=== PATIENT | female | born 1935 | race African-American/Black ===

== ENCOUNTER 2020-02-14 14:28 | Outpatient (CLI) | payer MEDICARE, SELFPAY ==
--- NOTE | ~2020-02-14 | MM_ITS ---
EXAMINATION: MM screening yessenia BI w jean HISTORY: Screening mammogram, family history of breast cancer in her sister. TECHNIQUE: Craniocaudal and mediolateral oblique 3-D tomosynthesis images were obtained and synthetic 2-D images were generated. CAD analysis was submitted and interpreted. COMPARISON: 01/18/2019, 01/16/2018, 12/01/2017, 10/20/2016 BREAST PARENCHYMAL COMPOSITION: There are scattered areas of fibroglandular density. FINDINGS: RIGHT BREAST: A 4 mm mass is present in the middle third of the central breast. LEFT BREAST: There is no evidence of suspicious mass, calcification, or architectural distortion to s uggest malignancy. There has been no significant interval change. IMPRESSION: 1. Right breast mass. 2. Additional mammographic views and possible breast ultrasound are recommended. BI-RADS Category 0: Incomplete: Needs additional imaging evaluation. Reviewed, dictated and finalized at location A. F II DISPATCHER IMPRESSION: 1. Right breast mass. 2. Additional mammographic views and possible breast ultrasound are recommended . BI-RADS Category 0: Incomplete: Needs additional imaging evaluation.
== END 2020-02-14 14:29 | disposition home or self-care (01) ==
LOC: ANHIMG 14:33
PROVIDERS: PCP Emergency Medicine; Visit Provider Emergency Medicine
DX: Z12.31 Encounter for screening mammogram for malignant neoplasm of breast (principal); R91.8 Other nonspecific abnormal finding of lung field
CPT/HCPCS: 77063; 77067

== ENCOUNTER 2020-02-20 17:43 | Emergency (ER) | payer MEDICARE, SELFPAY ==
--- NOTE | ~2020-02-20 | XR_ITS ---
EXAMINATION: XR chest 2V DATE: 02/20/2020 18:35 INDICATION: Shortness of breath and left-sided chest tightness. Tachycardia. TECHNIQUE: frontal and lateral views of the chest were obtained. COMPARISON: Chest radiograph dated 05/16/2014 FINDINGS: The lungs remain clear with no focal airspace opacities, pulmonary edema, pleural effusion or pneumot horax. Cardiomegaly. Visualized bones and soft tissues are unremarkable. There are bridging osteophyt es at multiple levels in the spine, consistent with diffuse idiopathic skeletal hyperostosis (DISH). IMPRESSION: 1. Cardiomegaly. Reviewed, dictated and finalized at location H. OPEDICS PEDIATRIC PHYSICIAN IMPRESSION: 1. Cardiomegaly.
--- NOTE | 2020-02-20 17:46 | ECG_ITS ---
Measurements Intervals [place] Rate: 65 P: -11 KS: 112 QRS: 2 QRSD: 80 T: 69 QT: 374 QTc: 389 Interpretive Statements SINUS RHYTHM WITH SHORT [place] INTERVAL NONSPECIFIC ST & T-WAVE ABNORMALITY- HIGH LATERAL LEADS BASELINE WANDER- I, II BORDERLINE ECG Electronically Signed On 02-20-2020 20:19:30 DEMOLITION WORKER by Abad Samano D.O.
[2020-02-20 17:47] VITALS: BP 209/76; PULSE 85; RESP 16; TEMP 36.5; O2SAT 100
--- NOTE | 2020-02-20 18:15 | ED.CHESTPAIN ---
HPI - Chest Pain General Chief Complaint: Chest Pain Stated Complaint: chest pain Time Seen by Provider: 02/20/20 18:06 Source: patient Mode of arrival: ambulatory Limitations: no limitations History of Present Illness HPI narrative: Patient is an 84-year-old female who presents with mild chest heaviness that began yesterday morning upon waking has persisted into today noting occasionally getting a slight twinge in the chest of pain denies any current pain. Patient with history of coronary artery disease hypertension presents with family in no distress does not take anything for her symptoms notes that she has been compliant with her medications. Related Data Home Medications Medication Instructions Recorded Confirmed albuterol sulfate INHALATION 02/20/20 alprazolam 02/20/20 celecoxib mg 02/20/20 irbesartan-hydrochlorothiazide tablet 02/20/20 meclizine mg 02/20/20 pitavastatin calcium [Livalo] mg 02/20/20 Allergies Allergy/AdvReac Type Severity Reaction Status Date / Time Penicillins Allergy Unknown Rash Verified 02/20/20 17:50 Review of Systems Review of Systems: All systems reviewed & are unremarkable except as noted in HPI and below [facility] Past Medical History Medical History (Updated 02/20/20 @ 19:45 by Nabeel Carpenter PA-C) Hypertension Surgical History Surgical History (Updated 02/20/20 @ 18:18 by Nabeel Carpenter PA-C) H/O cardiac catheterization Family History Family History (Updated 11/28/13 @ 07:13 by DOCTOR UNKNOWN) Father Malignant neoplasm of prostate Social History Social History (Updated 02/20/20 @ 18:18 by Nabeel Carpenter PA-C) Smoking status: Never smoker Alcohol intake: never Exam Narrative: Exam Narrative: GENERAL: Well-appearing, well-nourished, and in no acute distress. HEAD: Normocephalic, atraumatic. EYES: PERRLA and EOMI. ENT: Nares clear, no rhinorrhea or epistaxis. Mucous membranes moist. CHEST: Clear to auscultation. No respiratory distress. No wheezes rales or rhonchi HEART: Regular rate and rhythm. No murmur heard. Normal peripheral pulses. ABDOMEN: Soft, nontender, nondistended EXTREMITIES: Normal range of motion. No edema. SKIN: Warm, dry, no rash. NEURO: No focal deficits. Alert and oriented x3. Cranial nerves II through XII grossly intact PSYCH: Normal mood and affect. Course Course Emergency Course: Patient in the room in no distress patient symptoms likely to be due to elevated blood pressure discussion was made with the cardiology group patient was given medications in the emergency department has appointment tomorrow with her clock and watch hands mounter and will be discharged home it is felt that the patient has had her symptoms for over 24 hours with negative work-up in the ER for elevated troponin or heart failure or other concerning findings patient lives at home with her son and feels comfortable going home with her son and is resting comfortably in no pain at this time Consultations Consultation #1: Discussed with cardiology the case who feels comfortable the patient can go home given the duration of symptoms leaves it is likely attributed to her blood pressure which will be treated in the emergency department with hydralazine and nifedipine and patient will follow tomorrow in clinic for further discussion Date: 02/20/20 Time: 19:45 Vital Signs Vital signs: Vital Signs Temperature 97.7 F 02/20/20 17:47 Pulse Rate 85 02/20/20 17:47 Respiratory Rate 16 02/20/20 17:47 Blood Pressure 209/76 H 02/20/20 17:47 Pulse Oximetry 100 02/20/20 17:47 Temperature 97.7 F 02/20/20 17:47 Pulse Rate 85 02/20/20 17:47 Respiratory Rate 16 02/20/20 17:47 Blood Pressure 209/76 H 02/20/20 17:47 Pulse Oximetry 100 02/20/20 17:47 MDM - Chest Pain MDM Narrative Medical decision making narrative: Patient in the room in no distress aware of case findings treatment plan diagnosis agreeing to follow-up tomorrow in clinic with her cynthia
[2020-02-20 18:29] LABS: Basophils Percent Auto 0.3 % (0.2-1.2); Eosinophils Absolute Auto 0.2 K/mm3 (0-0.3); Eosinophils Percent Auto 2.7 % (0-4.4); Hematocrit 36.8 % (37.0-47.0); Hemoglobin 12.4 g/dL (12.0-15.0); Immature Granulocyte Absolute 0.02 K/mm3 (0.00-0.031); Immature Granulocyte Percent A 0.3 % (0-0.5); Lymphocytes Absolute Auto 2.28 K/mm3 (0.9-3.2); Lymphocytes Percent Auto 32.9 % (18.3-44.2); Mean Corpuscular HGB Conc 33.7 g/dl (32-36); Mean Corpuscular Hemoglobin 31.8 pg (26-34); Mean Corpuscular Volume 94.4 fl (80-100); Monocytes Absolute Auto 0.5 K/mm3 (0.1-0.6); Monocytes Percent Auto 6.9 % (2.6-8.5); Neutrophils Absolute Auto 3.9 K/mm3 (1.3-6.7); Neutrophils Percent Auto 56.9 % (45.5-73.1); Platelet Count Result 177 k/mm3 (150-375); Red Cell Distribution Width 12.1 % (11.5-14.5); White Blood Count 6.9 K/mm3 (4.5-10.0)
[2020-02-20] MEDS: ASPIRIN 81 MG CHEWABLE TABLET 324 MG PO (18:38)
[2020-02-20 18:44] LABS: Anion Gap 8 mmol/L (8-16); Blood Urea Nitrogen 17 mg/dL (7-17); Calcium 9.5 mg/dL (8.4-10.2); Carbon Dioxide 29 mmol/L (22-30); Chloride 102 mmol/L (98-107); Estimated CRCL calculation 35 ml/min; Estimated Glomerular Filt Rate 52; Glucose 101 mg/dL (65-105); Potassium 4.4 mmol/L (3.4-5.0); Sodium 139 mmol/L (137-145)
[2020-02-20 18:46] LABS: Partial Thromboplastin Time 28.3 SECONDS (22.3-36.8); Prothrombin Time 13.4 Seconds (11.1-14.7)
[2020-02-20 18:56] LABS: Troponin I < 0.012 ng/mL (0.000-0.034)
[2020-02-20 19:19] LABS: NT Pro B Type Natriuretic Pept 311 PG/ML (5-100)
[2020-02-20 20:11] VITALS: BP 165/80; PULSE 57; RESP 18; O2SAT 100
[2020-02-20] MEDS: hydrALAZINE HCL 20 MG/ML VIAL 10 MG IV PUSH (20:18)
[2020-02-20 20:31] VITALS: BP 159/66; PULSE 64; RESP 21; O2SAT 100
== END 2020-02-20 20:47 | disposition home or self-care (01) ==
PROVIDERS: Emergency Medicine Emergency Medical Services; Emergency Provider Emergency Medicine; PCP Emergency Medicine
DX: I10 Essential (primary) hypertension (principal); I25.10 Atherosclerotic heart disease of native coronary artery without angina pectoris
CPT/HCPCS: 36415; 71046; 80048; 83880; 84484; 85025; 85610; 85730; 93005; 96374; 99284; A9270; J0360

== ENCOUNTER 2020-03-16 13:17 | Outpatient (CLI) | payer MEDICARE, SELFPAY ==
--- NOTE | ~2020-03-16 | MMUS_ITS ---
EXAMINATION: MM diagnostic mammo unilat RT, US breast RT limited HISTORY: Right breast mass on screening mammogram TECHNIQUE: Additional 3-D tomosynthesis images of the right breast were performed and synthetic 2-D i mages were generated. CAD analysis was submitted and interpreted. High resolution limited right breas t ultrasound was performed. COMPARISON: 02/14/2020, 01/18/2019, 12/01/2017, 10/20/2016 FINDINGS: MAMMOGRAPHIC FINDINGS: There is a persistent round, circumscribed, 4 mm equal density mass in the middle third of the centra l breast. There is no associated calcification or architectural distortion. ULTRASOUND: There is a 4 mm cyst at the 1:00 location 3 cm from the nipple corresponding to the mammographic find ing in question. Also seen is a 3 mm cyst at posterior depth at the same location. IMPRESSION: 1. No mammographic or sonographic evidence of malignancy. 2. Recommend annual screening mammography while the patient remains in good health. BI-RADS Category 2: Benign finding(s). Reviewed, dictated and finalized at location A. BILITATION ASSISTANT IMPRESSION: 1. No mammographic or sonographic evidence of malignancy. 2. Recommend annual screening mammography while the patient remains in good hea lth. BI-RADS Category 2: Benign finding(s).
== END 2020-03-16 13:18 | disposition home or self-care (01) ==
PROVIDERS: PCP Emergency Medicine; Visit Provider Emergency Medicine
DX: R92.8 Other abnormal and inconclusive findings on diagnostic imaging of breast (principal); N60.01 Solitary cyst of right breast
CPT/HCPCS: 76642; 77065

== ENCOUNTER 2020-07-28 15:04 | Emergency (ER) | payer MEDICARE, SELFPAY ==
--- NOTE | ~2020-07-28 | XR_ITS ---
EXAMINATION: XR chest 2V EXAM DATE: 07/28/2020 15:48 INDICATION: Chest pain radiating to left arm for 4 weeks. Shortness of breath. TECHNIQUE: Frontal and lateral projections of the chest obtained and reviewed. Comparison is made to prior examination from 02/20/2020. FINDINGS: Borderline cardiac enlargement. No confluent consolidation, pneumothorax or pleural effusi on suspected. Patient has diffuse idiopathic skeletal hyperostosis (DISH). IMPRESSION: No acute cardiopulmonary findings. Reviewed, dictated and finalized at location A.
[2020-07-28 15:06] VITALS: BP 155/87; PULSE 70; RESP 17; TEMP 36.4; O2SAT 100
--- NOTE | 2020-07-28 15:06 | ECG_ITS ---
Measurements Intervals [place] Rate: 66 P: 84 CO: 158 QRS: -4 QRSD: 88 T: 33 QT: 375 QTc: 394 Interpretive Statements SINUS RHYTHM BASELINE ARTIFACT- I, II, III, AVR, AVL,A VF NORMAL ECG Electronically Signed On 07-28-2020 15:38:12 CDT by Abad Samano D.O.
[2020-07-28 15:30] LABS: Basophils Percent Auto 0.3 % (0.2-1.2); Eosinophils Absolute Auto 0.2 K/mm3 (0-0.3); Eosinophils Percent Auto 2.3 % (0-4.4); Hematocrit 35.8 % (37.0-47.0); Hemoglobin 11.9 g/dL (12.0-15.0); Immature Granulocyte Absolute 0.02 K/mm3 (0.00-0.031); Immature Granulocyte Percent A 0.3 % (0-0.5); Mean Corpuscular HGB Conc 33.2 g/dl (32-36); Mean Corpuscular Hemoglobin 30.8 pg (26-34); Mean Corpuscular Volume 92.7 fl (80-100); Mean Platelet Volume 10.4 fl (7.4-10.4); Monocytes Absolute Auto 0.5 K/mm3 (0.1-0.6); Monocytes Percent Auto 6.7 % (2.6-8.5); Neutrophils Absolute Auto 4.4 K/mm3 (1.3-6.7); Neutrophils Percent Auto 59.4 % (45.5-73.1); Platelet Count Result 223 k/mm3 (150-375); Red Blood Count 3.86 M/mm3 (4.2-5.4); Red Cell Distribution Width 11.9 % (11.5-14.5); White Blood Count 7.4 K/mm3 (4.5-10.0)
[2020-07-28 15:39] LABS: Anion Gap 7 mmol/L (8-16); Blood Urea Nitrogen 18 mg/dL (7-17); Calcium 9.7 mg/dL (8.4-10.2); Carbon Dioxide 30 mmol/L (22-30); Chloride 104 mmol/L (98-107); Estimated CRCL calculation 34 ml/min; Estimated Glomerular Filt Rate 52; Glucose 119 mg/dL (65-105); Potassium 4.4 mmol/L (3.4-5.0); Prothrombin Time 13.3 Seconds (11.1-14.7); Sodium 141 mmol/L (137-145)
[2020-07-28 15:40] LABS: Partial Thromboplastin Time 26.8 SECONDS (22.3-36.8)
[2020-07-28 15:51] LABS: Troponin I < 0.012 ng/mL (0.000-0.034)
--- NOTE | 2020-07-28 16:34 | ED.CHESTPAIN ---
HPI - Chest Pain General Chief Complaint: Chest Pain Stated Complaint: chest pain Time Seen by Provider: 07/28/20 16:31 Source: patient and family Mode of arrival: ambulatory Limitations: no limitations History of Present Illness HPI narrative: Patient is 85 years old -[place] female referred to the emergency room from family physician because of intermittent left chest pain for the last 4 weeks. Patient reports pain get worse with certain movement, taking deep breath, using her left upper extremity. Get better and Tylenol. Patient denies any fever, chills, nausea, vomiting, back pain or abdominal pain. History of hypertension and asthma. Patient on baby aspirin once a day, no family history of coronary artery disease.. Patient reports that the chest pain is intermittent, when it comes last for few seconds then resolved. Patient denies radiation of pain. MD complaint: chest pain Related Data Home Medications Medication Instructions Recorded Confirmed albuterol sulfate INHALATION 02/20/20 alprazolam 02/20/20 celecoxib mg 02/20/20 irbesartan-hydrochlorothiazide tablet 02/20/20 meclizine mg 02/20/20 pitavastatin calcium [Livalo] mg 02/20/20 Allergies Allergy/AdvReac Type Severity Reaction Status Date / Time Penicillins Allergy Unknown Rash Verified 07/28/20 15:59 Review of Systems Review of Systems: Narrative: CONSTITUTIONAL: Denies fever, chills, or sweats. EYES: Denies visual changes, redness, or discharge. ENT: Denies rhinorrhea, congestion, sore throat, or otalgia. CARDIOVASCULAR: Denies chest pain, palpitations, or edema. RESPIRATORY: Denies cough or dyspnea. GASTROINTESTINAL: Denies abdominal pain, nausea, vomiting, or diarrhea. GENITOURINARY: Denies dysuria or hematuria. SKIN: Denies rash or itching. MUSCULOSKELETAL: Denies back pain, joint pain, or myalgia. NEUROLOGIC: Denies headache, numbness, or weakness. PSYCHIATRIC: Denies anxiety or depression. [facility] Past Medical History Medical History Hypertension Surgical History Surgical History H/O cardiac catheterization Family History Family History Father Malignant neoplasm of prostate Social History Social History Smoking status: Never smoker Alcohol intake: never Gender identity (if verbalized by the patient): Female Exam Narrative: Exam Narrative: General appearance: Well-developed, well-nourished Skin: Normal color Head: Normocephalic, nontraumatic Eyes: Clear conjunctiva ENT: Oropharynx normal, ears normal, nose normal Neck: Supple, nontender Chest and respiratory: Airway patent, no respiratory distress, no accessory muscle use. Diffuse tenderness left chest with light palpation also diffuse tenderness left upper back. Limited range of motion of left shoulder because of pain. Heart: Regular rate/rhythm Abdomen: Soft, nontender, no organomegaly, quiet bowel sounds Vascular: Normal peripheral pulses, normal capillary refill. Musculoskeletal: Normal range of motion, nontender back Neurologic: Alert and oriented ?3, FIRE EXTINGUISHER TESTER is normal as tested, no gross motor deficit Course Course Emergency Course: Stable Consultations Consultation #1: Dr. Peña, Patient will receive a phone call from us tomorrow for follow-up Date: 07/28/20 Time: 17:25 Vital Signs Vital signs: Vital Signs Temperature 36.4 C 07/28/20 15:06 Pulse Rate 70 07/28/20 15:06 Respiratory Rate 17 07/28/20 15:06 Blood Pressure 155/87 H 07/28/20 15:06 Pulse Oximetr
[2020-07-28 17:22] VITALS: BP 147/74; PULSE 69; RESP 16; O2SAT 100
== END 2020-07-28 17:22 | disposition home or self-care (01) ==
PROVIDERS: Emergency Medicine; Emergency Provider Emergency Medicine; PCP Emergency Medicine
DX: R07.89 Other chest pain (principal); I10 Essential (primary) hypertension
CPT/HCPCS: 36415; 71046; 80048; 84484; 85025; 85610; 85730; 93005; 99284

== ENCOUNTER 2021-04-16 14:40 | Outpatient (CLI) | payer MEDICARE, SELFPAY ==
--- NOTE | ~2021-04-16 | MM_ITS ---
EXAMINATION: MM screening yessenia BI w jean HISTORY: Screening TECHNIQUE: Craniocaudal and mediolateral oblique 3-D tomosynthesis images were obtained and synthetic 2-D images were generated. CAD analysis was submitted and interpreted. COMPARISON: Comparison to multiple prior studies sequentially, with oldest reviewed study dated 12/01. BREAST PARENCHYMAL COMPOSITION: There are scattered areas of fibroglandular density. FINDINGS: There is no evidence of suspicious mass, calcification, or architectural distortion to sugg est malignancy in either breast. There has been no suspicious interval change. IMPRESSION: 1. No mammographic evidence of malignancy. 2. Recommend routine screening mammography in one year. BI-RADS Category 1: Negative Reviewed, dictated and finalized at location A. E HALL HOSTESS
== END 2021-04-16 14:41 | disposition home or self-care (01) ==
LOC: ANHIMG 14:42
PROVIDERS: PCP Emergency Medicine; Visit Provider Emergency Medicine
DX: Z12.31 Encounter for screening mammogram for malignant neoplasm of breast (principal)
CPT/HCPCS: 77063; 77067

== ENCOUNTER 2021-09-13 20:33 | Observation (INO) | payer MEDICARE, SELFPAY ==
--- NOTE | ~2021-09-13 | XR_ITS ---
EXAMINATION: XR chest 2V Exam Date/Time: 09/13/2021 21:00 CDT HISTORY: GENERALIZED CP X 1 WK,HX HYPERTENSION Comparison: None available. RESULT: Lines, tubes, and devices: None. Lungs and pleura: Senescent changes, otherwise clear. Cardiomediastinal silhouette: Stable cardiomediastinal silhouette. Other: No acute osseous or upper abdominal finding. IMPRESSION: No acute cardiopulmonary process. Reviewed, dictated and finalized at location K.
--- NOTE | 2021-09-13 20:35 | ECG_ITS ---
Measurements Intervals [place] Rate: 79 P: 171 CT: 162 QRS: 183 QRSD: 85 T: 166 QT: 355 QTc: 409 Interpretive Statements SINUS RHYTHM RIGHT VENTRICULAR HYPERTROPHY COMPARED TO ECG 07/28/2020 15:18:31 NO SIGNIFICANT CHANGES Electronically Signed On 09-14-2021 11:18:17 CDT by Marcial Gamino M.D.
[2021-09-13 20:42] VITALS: BP 194/65; PULSE 79; RESP 17; TEMP 36.6; O2SAT 100
--- NOTE | 2021-09-13 21:00 | PC.NURSE ---
Pt's daughter Berna [phone]. Please call with questions/concerns.
[2021-09-13 21:02] LABS: Basophils Percent Auto 0.5 % (0.2-1.2); Eosinophils Absolute Auto 0.2 K/mm3 (0-0.3); Eosinophils Percent Auto 3.4 % (0-4.4); Hematocrit 34.4 % (37.0-47.0); Hemoglobin 11.5 g/dL (12.0-15.0); Immature Granulocyte Absolute 0.02 K/mm3 (0.00-0.031); Immature Granulocyte Percent A 0.4 % (0-0.5); Lymphocytes Absolute Auto 1.12 K/mm3 (0.9-3.2); Mean Corpuscular HGB Conc 33.4 g/dl (32-36); Mean Corpuscular Hemoglobin 31.4 pg (26-34); Mean Platelet Volume 10.7 fl (7.4-10.4); Monocytes Absolute Auto 0.4 K/mm3 (0.1-0.6); Monocytes Percent Auto 6.4 % (2.6-8.5); Neutrophils Absolute Auto 3.9 K/mm3 (1.3-6.7); Neutrophils Percent Auto 69.3 % (45.5-73.1); Platelet Count Result 166 k/mm3 (150-375); Red Blood Count 3.66 M/mm3 (4.2-5.4); Red Cell Distribution Width 12.5 % (11.5-14.5); White Blood Count 5.6 K/mm3 (4.5-10.0)
[2021-09-13 21:12] LABS: Alanine Aminotransferase 15 U/L (6-35); Albumin Level 4.2 g/dL (3.5-5.1); Alkaline Phosphatase 65 U/L (38-126); Anion Gap 8 mmol/L (8-16); Aspartate Amino Transferase 21 U/L (14-36); Bilirubin,Total 1.1 mg/dL (0.2-1.3); Blood Urea Nitrogen 13 mg/dL (7-17); Calcium 9.4 mg/dL (8.4-10.2); Carbon Dioxide 25 mmol/L (22-30); Chloride 102 mmol/L (98-107); Estimated CRCL calculation 40 ml/min; Estimated Glomerular Filt Rate > 60; Glucose 117 mg/dL (65-110); INR 1.1; Lipase 84 U/L (23-300); Potassium 3.8 mmol/L (3.4-5.0); Prothrombin Time 13.6 Seconds (11.1-14.7); Sodium 135 mmol/L (137-145)
[2021-09-13 21:13] LABS: Partial Thromboplastin Time 31.2 SECONDS (22.3-36.8)
[2021-09-13 21:24] LABS: Troponin I < 0.012 ng/mL (0.000-0.034)
[2021-09-13 21:52] VITALS: BP 172/61; PULSE 75; RESP 25; O2SAT 100
--- NOTE | 2021-09-13 22:00 | ED.CHESTPAIN ---
HPI - Chest Pain General Chief Complaint: Chest Pain Stated Complaint: chest pain since 5 pm Time Seen by Provider: 09/13/21 21:48 Source: patient Mode of arrival: ambulatory Limitations: no limitations History of Present Illness HPI narrative: Patient is an 86-year-old female who presents to the ED with report of L sided CP, described as a heaviness and tightness. Patient reports a history of coronary artery disease. She was diagnosed with COVID-19 in mid August of this year and was reportedly admitted to [facility] 2 weeks ago for a mild heart attack. She had a cardiac catheterization at that time and told she had a slight blockage, but she did not require stenting and was told the blockage will be treated with medical management. She was started on several new medications: Plavix, Lasix, hydrochlorothiazide, isosorbide mononitrate, losartan, and metoprolol at that time. Patient reports she has felt unwell since her hospitalization. She has had intermittent chest pain with exertion since then. Today around 5 PM, she reports the pain became worse while she was sitting at rest. She took 5 nitroglycerin q5 minutes with relief of pain before she decided to come to the ED. She describes the pain as a tightness and heaviness in her left-sided chest. She states that radiates to her left shoulder and down her left arm. She also reports having dyspnea on exertion, diaphoresis, BLE edema. No nausea or vomiting. No abdominal pain. No fever, chills. No cough, cold symptoms. Patient's magneto electrician is Dr. Veras. She saw the nurse practitioner at his office on Monday and was advised to continue taking her medications as prescribed but return to the ED if things became worse. Related Data Home Medications Medication Instructions Recorded Confirmed albuterol sulfate 90 mcg/actuation inhalation 02/20/20 aerosol inhaler alprazolam 0.5 mg tablet 02/20/20 celecoxib 200 mg capsule mg 02/20/20 irbesartan 300 tablet 02/20/20 mg-hydrochlorothiazide 12.5 mg tablet meclizine 25 mg tablet mg 02/20/20 pitavastatin calcium 4 mg tablet mg 02/20/20 (Livalo) Allergies Allergy/AdvReac Type Severity Reaction Status Date / Time Penicillins Allergy Unknown Rash Verified 09/13/21 21:53 Review of Systems Review of Systems: CONSTITUTIONAL: Reports diaphoresis. Denies fever, chills. ENT: Denies rhinorrhea, congestion, sore throat. CARDIOVASCULAR: Reports CP, radiates to L shoulder/arm, BLE edema. Denies palpitations. RESPIRATORY: Reports HEDRICK. Denies cough. GASTROINTESTINAL: Denies abdominal pain, nausea, vomiting. GENITOURINARY: Denies dysuria or hematuria. MUSCULOSKELETAL: Denies back pain, joint pain, or myalgia. NEUROLOGIC: Denies headache, numbness, or weakness. All systems reviewed & are unremarkable except as noted in HPI and below PMFSH Past Medical History Medical History (Updated 09/14/21 @ 01:57 by Candace Barone PA-C) Asthma Coronary artery disease Diabetes mellitus Hypertension Surgical History Surgical History H/O cardiac catheterization Family History Family History Father Malignant neoplasm of prostate Social History Social History Smoking status: Never smoker Alcohol intake: never Gender identity (if verbalized by the patient): Female Exam Narrative: GENERAL: Well appearing, well-nourished, non-toxic, in no acute distress. HEAD: Normocephalic, atraumatic. NECK: Supple. No adenopathy, no masses. RESPIRATORY: Airway patent, respirations nonlabored. Clear to auscultation bilaterally, no rales, rhonchi, wheezing. CARDIOVASCULAR: Regular rate and rhythm without murmurs, rubs, or gallops. Peripheral pulses 2+ and equal bilaterally. ABDOMINAL: Soft, nontender, nondistended, no hepatosplenomegaly. Normoactive BS. MUSCULOSKELETAL: Mo
[2021-09-13] MEDS: ASPIRIN 81 MG CHEWABLE TABLET 324 MG PO (22:18)
--- NOTE | 2021-09-13 22:19 | PC.NURSE ---
pt states they took one 81mg Aspirin prior to arrival.
[2021-09-13 22:51] VITALS: BP 141/60; PULSE 67; RESP 18; O2SAT 98
[2021-09-13 22:51] LABS: NT Pro B Type Natriuretic Pept 332 pg/mL (5-100)
[2021-09-14] VITALS (14 sets, daily range): BP systolic 99–174; BP diastolic 45–70; PULSE 56–160; RESP 16–24; TEMP 36.1–36.8; O2SAT 98–100; BMI 30.2; BMI 32.7
[2021-09-14 00:19] LABS: Troponin I < 0.012 ng/mL (0.000-0.034)
--- NOTE | 2021-09-14 02:18 | ECG_ITS ---
Measurements Intervals [place] Rate: 73 P: -26 WI: 130 QRS: 7 QRSD: 87 T: 25 QT: 354 QTc: 391 Interpretive Statements SINUS RHYTHM NONSPECIFIC ST & T-WAVE ABNORMALITY ABNORMAL ECG COMPARED TO ECG 09/13/2021 20:38:41 T-WAVE ABNORMALITY NOW PRESENT Electronically Signed On 09-15-2021 9:56:12 CDT by Froilan Veras M.D.
[2021-09-14] MEDS: NITROGLYCERIN SL 0.4 MG TABLET SUBLINGUAL (02:23)
--- NOTE | 2021-09-14 02:24 | PC.NURSE ---
Pt given one 0.4 mg tablet of Nitroglycerin.
--- NOTE | 2021-09-14 02:48 | PC.NURSE ---
took patient via nicolas steady to restroom.
[2021-09-14] MEDS: NITROGLYCERIN OINTMENT 1 INCH DOSE TRANSDERM (02:49)
[2021-09-14 03:23] LABS: Troponin I < 0.012 ng/mL (0.000-0.034)
--- NOTE | 2021-09-14 03:54 | ADMGEN ---
This patient, Queen Jack Vicekrs, was admitted to IMU Room 200-01 at 0354. Patient/family oriented to hospital policies and general routines including ID bracelet, bed and alarms, visiting hours, pain management, procedures, bathroom and other care routines, personal items, smoking policy, room service/diet, and visiting hours. Information on how to activate the Rapid Response Team has been discussed. Patient/Family are encouraged to report perceived risks to care and to ask questions if they do not understand what they are told or what they should do.
[2021-09-14 04:11] LABS: Glucose Point of Care 111 mg/dl (65-105)
[2021-09-14 07:34] LABS: Glucose Point of Care 100 mg/dl (65-105)
--- NOTE | 2021-09-14 07:47 | PM.IMHP ---
H&P: HPI History of Present Illness Date/Time: 09/14/21 07:47 Chief Complaint: Chest pain Narrative: Queen Rancho is an 86 yo female with medical history of coronary artery disease, hypertension, asthma, type 2 diabetes and recent hospitalization for COVID19 infection and mild heart attack in August of this year. She presented to the ED for evaluation of left sided chest pain radiating to her left arm. Initially the pain started intermittently at rest, but yesterday prior to the presentation the pain was constant and worsening, is moderate to severe and heavy and sensation. She reports associated shortness of breath, diaphoresis, nausea, palpitations and dizziness. She states that she took 5 nitro pills at home with minimal improvement and received additional nitroglycerin tablet and 1 in nitro paste in the ED with improvement in symptoms. She states she was hospitalized at [facility] a few weeks ago where she had cardiac catheterization showing atherosclerotic disease without intervention required. She was treated medically and states she was started on numerous new medications including Plavix, furosemide, and isosorbide mononitrate. In the emergency room she was hypertensive with blood pressure 194/65. Lab work was unremarkable and showed normal troponin I. EKG showed normal sinus rhythm with T-wave inversion to I and aVL. She received nitroglycerin as stated above, as well as asa 325 mg PO x1. Cardiology was consulted in the ED and agreed to consult. Review of Systems Review of Systems: All systems reviewed & are unremarkable except as noted in HPI and below Cardiovascular: Comments: Chronic BLE swelling. Respiratory: Comments: Recont COVID19 infection with hospitalization. No home O2. Musculoskeletal: Comments: Chronic left shoulder arthritis pain. Neurologic: Comments: Positive neuropathy BLE. [facility] Past Medical History Medical History (Updated 09/14/21 @ 14:37 by Zoe Allen APRN) Anxiety Asthma Coronary artery disease Diabetes mellitus GERD (gastroesophageal reflux disease) Hiatal hernia Hypertension Obesity (BMI 30.0-34.9) Surgical History Surgical History (Updated 09/14/21 @ 14:37 by Zoe Allen APRN) H/O cardiac catheterization S/P lumpectomy, left breast S/P total hysterectomy and BSO (bilateral salpingo-oophorectomy) Family History Family History Father Malignant neoplasm of prostate Social History Social History (Updated 09/14/21 @ 14:38 by Zoe Allen APRN) Smoking status: Never smoker Second hand tobacco smoke exposure: No Alcohol intake: never Substance use: never Living arrangements: with family Gender identity (if verbalized by the patient): Female Spiritual care concerns: No Meds Home Medications and Allergies Home Medications Medication Instructions Recorded Confirmed Type albuterol sulfate 90 mcg/actuation 2 puff inhalation Q6H PRN 02/20/20 09/14/21 History aerosol inhaler Shortness Of Breath Or Wheezing alprazolam 0.5 mg tablet 0.5 mg PO Q12H PRN Anxiety 02/20/20 09/14/21 History meclizine 25 mg tablet 25 mg PO Q8H PRN Dizziness Or 02/20/20 09/14/21 History Vertigo pitavastatin calcium 4 mg tablet 4 mg PO DAILY 02/20/20 09/14/21 History (Livalo) acetaminophen 500 mg tablet 500 mg PO Q6H PRN Pain (Scale 09/14/21 09/14/21 History Score 1-3) aspirin 81 mg tablet,delayed 81 mg PO DAILY 09/14/21 09/14/21 History release cholecalciferol (vitamin D3) 125 125 mcg PO DAILY 09/14/21 09/14/21 History mcg (5,000 unit) capsule clopidogrel 75 mg tablet 75 mg PO DAILY 09/14/21 09/14/21 History famotidine 20 mg tablet 20 mg PO DAILY 09/14/21 09/14/21 History hydrochlorothiazide 12.5 mg tablet 12.5 mg PO DAILY 09/14/21 09/14/21 History isosorbide mononitrate 30 mg 30 mg PO DAILY 09/14/21 09/14/21 History tablet,extended release 24 hr levocetirizine 5 mg table
--- NOTE | 2021-09-14 09:39 | PM.CNCAR ---
Assessment and Plan Assessment and plan (1) Coronary artery disease: Code(s): I25.10 - Atherosclerotic heart disease of [place] coronary artery without angina pectoris Status: Acute Assessment and Plan: She has a recent coronary angiogram showing no significant epicardial disease. She does have branch vessel disease including a small diagonal artery. She also has a myocardial bridge. Continue pitavastatin, antiplatelets, beta-aurelio. Will discontinue the nitrates since she has myocardial bridging this can worsen systolic compression. (2) Chest pain: Code(s): R07.9 - Chest pain, unspecified Status: Acute Assessment and Plan: Possibly anginal although her troponins are negative. No plans on doing a repeat coronary angiogram as she just had an angiogram a couple of weeks ago. Medication adjustments will be performed. Will actually discontinue her isosorbide as nitrates can worsen myocardial bridging. Will increase her metoprolol to 25 mg p.o. q.8 hours. Continue dual anti-platelet therapy, losartan. (3) Essential hypertension: Code(s): I10 - Essential (primary) hypertension Status: Acute Assessment and Plan: Above goal (4) History of COVID-19: Code(s): Z86.16 - Personal history of COVID-19 Status: Acute (5) Hyperlipidemia associated with type 2 diabetes mellitus: Code(s): E11.69 - Type 2 diabetes mellitus with other specified complication; E78.5 - Hyperlipidemia, unspecified Status: Acute Assessment and Plan: On statin History of Present Illness History of Present Illness Consult date/time: 09/14/21 09:39 Reason For Visit: unstable angina Narrative: Reason for consultation: Unstable angina, CAD Date of service 09/14/2021 Requesting provider: Candace Barone History: Patient is an 86-year-old female who developed COVID on August 17 of this year. She was treated at [facility]. She did undergo a cardiac catheterization which showed mild nonobstructive disease of the epicardial vessels. 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 She does have a high-grade ostial and proximal small 2nd diagonal stenosis with 75-80% disease. The artery less than 2 mm in size with 60-70% stenosis in a branch off the 2nd diagonal branch. Elevated LVEDP at 18. She presented to the hospital yesterday with multitude of symptoms including chest pain. Chest pain started about 5:00 p.m. and she took several nitroglycerin tablets with gradual relief in her symptoms. She also felt dizzy and lightheaded along with shortness of breath and sweatiness. She does have chronic lower extremity swelling which is not new or different. She denies any syncope, paroxysmal nocturnal dyspnea, orthopnea. She is having some occasional palpitations. Review of Systems Review of Systems: All systems reviewed & are unremarkable except as noted in HPI and below Constitutional: Constitutional: Denies body ache(s) Eyes: Eyes: Denies blurry vision ENT: Reports Normal hearing present Cardiovascular: Cardiovascular: Reports chest pain Respiratory: Respiratory: Denies chest congestion and Reports dyspnea Gastrointestinal: Gastrointestinal: Denies abdominal pain Genitourinary: Genitourinary: Denies hematuria Musculoskeletal: Musculoskeletal: Denies back pain Integumentary/Breasts: Skin/Breast: Denies breast pain Neurologic: Denies Abnormal speech present Psychiatric: Psychiatric: Denies confusion Endocrine: Endocrine: Reports excessive sweating Hematologic/Lymphatic: Hematologic/Lymphatic: Denies easy bleeding Allergic/Immunologic: Allergic/Immunologic: Denies GI upset with certain foods PMFSH Past Medical History Medical History Asthma Coronary artery disease Diabetes mellitus Hypertension Obesity (BMI 30.0-34.9) Surgical History Surgical History (Reviewed 09/14/21 @ 0
[2021-09-14] MEDS: ALPRAZolam (*CRX) 0.5 MG TABLET PO ×2 (10:19→20:59)
[2021-09-14 11:18] LABS: Hemoglobin A1C 5.9 % (<5.7)
[2021-09-14 12:03] LABS: Glucose Point of Care 143 mg/dl (65-105)
[2021-09-14 12:38] LABS: Folic Acid 9.2 ng/mL (2.76->20); Vitamin B12 > 1000.0 pg/mL (239-931)
[2021-09-14] MEDS: CHOLECALCIFEROL 1,000 UNITS TABLET 5000 UNITS PO (12:45)
[2021-09-14] MEDS: LOSARTAN POTASSIUM 100 MG TABLET PO (12:45)
[2021-09-14] MEDS: hydroCHLOROthiazide 12.5 MG CAPSULE PO (12:45)
[2021-09-14] MEDS: CLOPIDOGREL BISULFATE 75 MG TABLET PO (12:45)
[2021-09-14] MEDS: DICLOFENAC SODIUM 1% 100 GM GEL (*BKC) 1 APPLIC TOPICAL ×3 (12:52→20:41)
[2021-09-14] MEDS: METOPROLOL TARTRATE 25 MG TABLET PO ×2 (13:20→21:00)
[2021-09-14] MEDS: FAMOTIDINE 20 MG TABLET PO (20:41)
[2021-09-15] VITALS (7 sets, daily range): BP systolic 128–139; BP diastolic 47–66; PULSE 55–85; RESP 16–22; TEMP 36.7–37.2; O2SAT 98–100
[2021-09-15] MEDS: METOPROLOL TARTRATE 25 MG TABLET PO ×2 (06:46→13:50)
[2021-09-15] MEDS: hydroCHLOROthiazide 12.5 MG CAPSULE PO (08:51)
[2021-09-15] MEDS: CHOLECALCIFEROL 1,000 UNITS TABLET 5000 UNITS PO (08:51)
[2021-09-15] MEDS: CLOPIDOGREL BISULFATE 75 MG TABLET PO (08:51)
[2021-09-15] MEDS: DICLOFENAC SODIUM 1% 100 GM GEL (*BKC) 1 APPLIC TOPICAL ×2 (08:51→13:51)
[2021-09-15] MEDS: ASPIRIN 81 MG ENTERIC TABLET PO (08:51)
[2021-09-15] MEDS: LOSARTAN POTASSIUM 100 MG TABLET PO (08:51)
[2021-09-15] MEDS: FAMOTIDINE 20 MG TABLET PO (08:51)
--- NOTE | 2021-09-15 09:52 | PM.PNCARD ---
Progress Note: A&P Assessment and Plan (1) Coronary artery disease: Code(s): I25.10 - Atherosclerotic heart disease of [place] coronary artery without angina pectoris Status: Acute Assessment and Plan: She has a recent coronary angiogram showing no significant epicardial disease. She does have branch vessel disease including a small diagonal artery. She also has a myocardial bridge. Continue pitavastatin, antiplatelets, beta-aurelio. (2) Chest pain: Code(s): R07.9 - Chest pain, unspecified Status: Acute Assessment and Plan: Possibly anginal although her troponins are negative. No plans on doing a repeat coronary angiogram as she just had an angiogram a couple of weeks ago. Medication adjustments will be performed. Will actually discontinue her isosorbide as nitrates can worsen myocardial bridging. Continue metoprolol to 25 mg p.o. q.8 hours. Continue dual anti-platelet therapy, losartan. Chest pain is reproducible today. OTC acetaminophen. Probably okay for discharge later today (3) Essential hypertension: Code(s): I10 - Essential (primary) hypertension Status: Acute Assessment and Plan: Above goal (4) History of COVID-19: Code(s): Z86.16 - Personal history of COVID-19 Status: Acute (5) Hyperlipidemia associated with type 2 diabetes mellitus: Code(s): E11.69 - Type 2 diabetes mellitus with other specified complication; E78.5 - Hyperlipidemia, unspecified Status: Acute Assessment and Plan: On statin Subjective Date/time seen: 09/15/21 09:52 will 86-year-old admitted for chest pain Date of service 09/15/2021: She is slight amount of left-sided chest pain this morning. No shortness of breath. Feels better Review of Systems Review of Systems: All systems reviewed & are unremarkable except as noted in HPI and below Constitutional: Constitutional: Denies body ache(s) and Reports excessive sweating Eyes: Eyes: Denies blurry vision ENT: Reports Normal hearing present Cardiovascular: Cardiovascular: Reports chest pain and Reports dyspnea Respiratory: Respiratory: Denies chest congestion and Reports dyspnea Gastrointestinal: Gastrointestinal: Denies abdominal pain Genitourinary: Genitourinary: Denies hematuria Musculoskeletal: Musculoskeletal: Denies back pain Integumentary/Breasts: Skin/Breast: Denies breast pain Neurologic: Reports Normal hearing present, Denies Abnormal speech present and Denies confusion Psychiatric: Psychiatric: Denies confusion Endocrine: Endocrine: Reports excessive sweating Hematologic/Lymphatic: Hematologic/Lymphatic: Denies easy bleeding Allergic/Immunologic: Allergic/Immunologic: Denies GI upset with certain foods Exam Narrative: Patient awake alert oriented. Appears stated age Const: General: comfortable; No in distress or confusion Orientation/consciousness: No confusion HENMT: General nose exam: Normal nares present Eyes: Sclera: sclerae normal Neck: Neck: supple Carotids: no bruits Chest: Other: Chest pain this morning is reproducible up a left anterior chest Resp: Effort & Inspection: normal respiratory effort Auscultation: clear to auscultation bilaterally Cardio: Rate: regular rate Rhythm: regular rhythm Heart sounds: no murmurs GI: Auscultation: normal bowel sounds Skin: General skin exam: normal color Neuro: General: No confusion Cranial nerves: Yes Normal hearing present Speech: normal speech and No Abnormal speech present Sensory Exam: normal sensation Extrem: General: edema Other: Mild bilateral lower extremity edema Psych: Mental Status: mental status grossly normal Objective Data Vital Signs Vital Signs: Vital Signs - 24 hr 09/14/21 10:00 09/14/21 12:00 09/14/21 12:00 Temperature 36.3 C L Pulse Rate 73 65 61 Respiratory Rate 24 H Blood Pressure 113/47 L Pulse Oximetry 100 Oxygen Delivery 09/14/21 12:00 06
--- NOTE | 2021-09-15 15:03 | PM.DS ---
DS: Admitting Diagnosis Discharge Date 09/15/2021 1543 Admitting Diagnosis Chest pain [place] coronary artery disease with angina DS: Discharge Diagnosis Discharge Diagnosis (1) Chest pain: Qualifiers: Chest pain type: unspecified Qualified Code(s): R07.9 - Chest pain, unspecified Code(s): R07.9 - Chest pain, unspecified Status: Acute (2) Coronary artery disease: Qualifiers: Coronary Disease-Associated Artery/Lesion type: [place] artery [place] vs. transplanted heart: [place] heart Associated angina: with unspecified form of angina Qualified Code(s): I25.119 - Atherosclerotic heart disease of [place] coronary artery with unspecified angina pectoris Code(s): I25.10 - Atherosclerotic heart disease of [place] coronary artery without angina pectoris Status: Chronic (3) Essential hypertension: Code(s): I10 - Essential (primary) hypertension Status: Chronic (4) Diabetes mellitus: Qualifiers: Diabetes mellitus type: type 2 Diabetes mellitus mcc insulin use: without mcc use Code(s): E11.9 - Type 2 diabetes mellitus without complications Status: Chronic (5) Asthma: Code(s): J45.909 - Unspecified asthma, uncomplicated Status: Chronic Assessment and Plan: Not in acute exacerbation (6) Arthritis: Code(s): M19.90 - Unspecified osteoarthritis, unspecified site Status: Acute DS: Summary Hospital Course Reason for hospitalization: Chest pain Hospital Course: Queen Rancho is an 86 yo female with medical history of coronary artery disease, hypertension, asthma, type 2 diabetes and recent hospitalization for COVID19 infection and mild heart attack in August of this year. She presented to the ED for evaluation of left sided chest pain radiating to her left arm.? Initially the pain started intermittently at rest, but on the day of discharge it was constant and worsening, moderate to severe, and heavy in sensation.? She reported associated shortness of breath, diaphoresis, nausea, palpitations and dizziness.? She took 5 nitro pills at home with minimal improvement and received additional nitroglycerin tablet and 1 inch nitro paste in the ED with improvement in symptoms.? She was hospitalized at [facility] a few weeks ago where she had cardiac catheterization showing atherosclerotic disease without intervention required.? She was treated medically and was started on numerous new medications including Plavix, furosemide, and isosorbide mononitrate.? In the emergency room she was hypertensive with blood pressure 194/65.? Lab work was unremarkable and showed normal troponin I. EKG showed normal sinus rhythm with nonspecific st changes. She received nitroglycerin as stated above, as well as asa 325 mg PO x1. Cardiology was consulted in the ED and agreed to consult. The patient was referred for observation and cardiac evaluation. Repeat troponin remained negative. She was monitored on telemetry and remained NSR/SB, except she did have one episode of non-sustained SVT on the morning of admission. No further arrhythmia was noted. Cardiology was consulted. Given the patient had recently had a cardiac catheterization a few weeks prior, and had known coronary artery disease with branch vessel disease, further cardiac intervention was not performed and she was managed medically. Aspirin 81 mg daily, plavix 75 mg daily, losartan 100 mg daily and HCTZ 12.5 mg daily were continued. Her metoprolol tartrate was increased to 25 mg Q8 hours. On the day of discharge, she did report left sided chest pain that was reproducible with light palpation and worsened with coughing. This was thought to be musculoskeletal from previous covid19 pneumonia and treated with OTC tylenol and cough medicine. She was discharged home in stable condition. She reported concern for recurrent chest pain and MD. Her medical condition and prior cardiac cath results were discussed e
== END 2021-09-15 16:54 | disposition home or self-care (01) ==
LOC: ANHED 09-14 01:57 → ANHIMU 09-14 03:46
PROVIDERS: Physician Assistant; Admitting Provider Internal Medicine; Emergency Provider Emergency Medicine; PCP Emergency Medicine; Visit Provider Nurse Practitioner Family
DX: I25.10 Atherosclerotic heart disease of native coronary artery without angina pectoris (principal); R07.9 Chest pain, unspecified; Q24.5 Malformation of coronary vessels; R06.09 Other forms of dyspnea; I10 Essential (primary) hypertension; E11.9 Type 2 diabetes mellitus without complications; J45.909 Unspecified asthma, uncomplicated; E78.5 Hyperlipidemia, unspecified; K21.9 Gastro-esophageal reflux disease without esophagitis; M19.90 Unspecified osteoarthritis, unspecified site; F41.9 Anxiety disorder, unspecified; E66.9 Obesity, unspecified; Z68.34 Body mass index [BMI] 34.0-34.9, adult; Z79.82 Long term (current) use of aspirin; Z79.02 Long term (current) use of antithrombotics/antiplatelets; Z79.51 Long term (current) use of inhaled steroids; Z86.16 Personal history of COVID-19
CPT/HCPCS: 36415; 71046; 80053; 82607; 82746; 82948; 83036; 83690; 83880; 84484; 85025; 85610; 85730; 93005; 99285; A9270; G0378

== ENCOUNTER 2022-09-19 13:03 | Outpatient (CLI) | payer MEDICARE, SELFPAY ==
--- NOTE | ~2022-09-19 | XR_ITS ---
AP and lateral views of the left tibia/fibula Clinical History: Pain Findings: No acute fracture or dislocation is seen. Osseous alignment is anatomic. Tricompartmental d egenerative change at the left knee noted. Plantar calcaneal spur noted. Chondrocalcinosis of the men isci. Impression: No fracture or dislocation. Tricompartmental degenerative change at the knee. Please see further details on separately reported, dedicated left knee radiographs. Chondrocalcinosis of the menisci. Reviewed, dictated and finalized at location M. Impression: No fracture or dislocation. Tricompartmental degenerative change at the knee. Please see further details on separately reported, dedicated left knee radiographs. Chondrocalcinosis of the menisci.
--- NOTE | ~2022-09-19 | XR_ITS ---
AP and lateral views of the left femur Clinical History: Pain Findings: No acute fracture or dislocation is seen. Osseous alignment is anatomic. Moderate to advanc ed tricompartmental degenerative change of the knee noted. Left hip joint space is preserved. Chondro calcinosis of the menisci of any noted. Impression: Degenerative changes of the knee, as detailed above. Please see further details on separately reporte d, dedicated left knee radiographs. Reviewed, dictated and finalized at location M. Impression: Degenerative changes of the knee, as detailed above. Please see further details on separately reported, dedicated left knee radiographs.
--- NOTE | ~2022-09-19 | XR_ITS ---
Left Knee Technique: AP, lateral, and oblique views were obtained. Clinical History: Pain Findings: No fracture or dislocation is seen. Osseous alignment is anatomic. There is severe degenera tive change of the patellofemoral compartment. There is moderate degenerative change of the medial la teral compartments. Chondrocalcinosis of the menisci noted. No joint effusion is seen. Impression: Tricompartmental degenerative change, as detailed above, worst in the patellofemoral compartment. Chondrocalcinosis of the menisci. Reviewed, dictated and finalized at location M. Impression: Tricompartmental degenerative change, as detailed above, worst in the patellofe moral compartment. Chondrocalcinosis of the menisci.
--- NOTE | ~2022-09-19 | XR_ITS ---
AP view of the pelvis and AP and lateral views of the bilateral hips Clinical history: Pain Findings: No acute fracture or dislocation is seen. Osseous alignment is anatomic. Bilateral hip and SI joint spaces are preserved. Soft tissues are unremarkable. Impression: No significant abnormality is seen. Reviewed, dictated and finalized at [facility]. Impression: No significant abnormality is seen.
--- NOTE | ~2022-09-19 | XR_ITS ---
EXAM: XR lumbar spine 2-3V DATE: 09/19/2022 13:53 HISTORY: LEG PAIN;HIP PAIN;BACK PAIN, NKI . COMPARISON: None available. FINDINGS: 5 nonrib-bearing lumbar-type vertebral bodies. Pedicles intact. Trace, one-2 mm retrolisth esis at L1-2. 2 mm anterolisthesis at L3-4. 4 mm anterolisthesis at L4-5. 6 mm anterolisthesis at L5- S1. Vertebral body heights preserved. Multilevel mild disc space narrowing. Multilevel moderate and s evere marginal osteophytosis including large bridging anterior and lateral osteophytes. Mid and lower lumbar facet hypertrophy and sclerosis, with multilevel interspinous narrowing, and sclerosis. No fr acture or dislocation. IMPRESSION: Multilevel grade 1 listheses, described above. Multilevel moderate degenerative disc dise ase. Multilevel moderate-severe mid and lower lumbar facet arthropathy, with interspinous narrowing/i mpingement. Reviewed, dictated and finalized at location K. IMPRESSION: Multilevel grade 1 listheses, described above. Multilevel moderate degenerative disc disease. Multilevel moderate-severe mid and lower lumbar face t arthropathy, with interspinous narrowing/impingement.
== END 2022-09-19 13:04 | disposition home or self-care (01) ==
LOC: ANHIMG 13:11
PROVIDERS: PCP Emergency Medicine; Visit Provider Emergency Medicine
DX: M25.559 Pain in unspecified hip (principal); M51.36 Other intervertebral disc degeneration, lumbar region; M17.12 Unilateral primary osteoarthritis, left knee
CPT/HCPCS: 72100; 73521; 73552; 73564; 73590

== ENCOUNTER 2022-09-26 12:36 | Outpatient (CLI) | payer MEDICARE, SELFPAY ==
--- NOTE | ~2022-09-26 | US_ITS ---
EXAMINATION: US venous doppler [facility] DATE: 09/26/2022 13:19 INDICATION: PAIN IN LLE . TECHNIQUE: Grayscale images without and with compression and Doppler images of the left lower extremi ty veins were obtained. COMPARISON: None FINDINGS: The left common femoral vein, profunda (deep) femoral vein, femoral vein, popliteal vein, peroneal v ein, posterior tibial veins, gastrocnemius vein, and greater saphenous vein are patent. Uncomplicated fluid collection behind in the, likely Leigh's cyst. IMPRESSION: 1. Patent left lower extremity veins. No evidence of deep venous thrombosis. Reviewed, dictated and finalized at location K.
== END 2022-09-26 12:37 | disposition home or self-care (01) ==
PROVIDERS: PCP Emergency Medicine; Visit Provider Emergency Medicine
DX: M79.662 Pain in left lower leg (principal)
CPT/HCPCS: 93971

== ENCOUNTER 2023-01-03 08:54 | Outpatient (CLI) | payer MEDICARE, SELFPAY ==
--- NOTE | ~2023-01-03 | MM_ITS ---
EXAMINATION: MM screening yessenia BI w jean HISTORY: Screening mammogram, history of left breast cancer TECHNIQUE: Craniocaudal and mediolateral oblique 3-D tomosynthesis images were obtained and synthetic 2-D images were generated. CAD analysis was submitted and interpreted. COMPARISON: 04/16/2021, 03/16/2020, 02/14/2020, 02/18/2019 BREAST PARENCHYMAL COMPOSITION: There are scattered areas of fibroglandular density. FINDINGS: Scattered benign-appearing calcifications are present. No suspicious mass, calcification, o r architectural distortion are identified in either breast to suggest malignancy. There has been no s uspicious interval change. IMPRESSION: 1. No mammographic evidence of malignancy. 2. Recommend routine screening mammography while the patient remains in good health. BI-RADS Category 2: Benign finding(s). Reviewed, dictated and finalized at location A. IMPRESSION: 1. No mammographic evidence of malignancy. 2. Recommend routine screening mammography while the patient remains in good he alth. BI-RADS Category 2: Benign finding(s).
== END 2023-01-03 08:55 | disposition home or self-care (01) ==
PROVIDERS: PCP Emergency Medicine; Visit Provider Emergency Medicine
DX: Z12.31 Encounter for screening mammogram for malignant neoplasm of breast (principal)
CPT/HCPCS: 77063; 77067

== ENCOUNTER 2024-05-29 17:51 | Inpatient (IN) | payer MEDICARE, SELFPAY ==
[2024-05-29] VITALS (8 sets, daily range): BP systolic 154–196; BP diastolic 62–81; PULSE 72–89; RESP 16–20; TEMP 36.3; O2SAT 99–100
--- NOTE | ~2024-05-29 | XR_ITS ---
EXAMINATION: XR chest 2V Exam Date/Time: 05/29/2024 18:10 CIGARETTE VENDOR HISTORY: LEFT SIDED CHEST PAIN THAT RADIATES TO BACK Comparison: 09/13/2021. RESULT: Lines, tubes, and devices: None. Lungs and pleura: Slight leftward rotation. No focal consolidation, pleural effusion, or pneumothor ax. Cardiomediastinal silhouette: Stable. Other: No acute osseous or upper abdominal finding. IMPRESSION: No acute cardiopulmonary process. Reviewed, dictated and finalized at location K. RETTE VENDOR
--- NOTE | ~2024-05-29 | CT_ITS ---
EXAMINATION: CTA chest PE protocol DATE: 05/29/2024 23:27 INDICATION: L sided CP, dyspnea TECHNIQUE: Computed tomography angiography (CTA) of the chest was performed with 100 mL Omnipaque-350 intravenous contrast timed to evaluate the pulmonary arteries. Coronal maximum intensity projection 3D-reconstructions were created by the technologist. The dose-length product (DLP) was 725.43 mGy-cm. Automated exposure control and iterative reconstruction technique were employed. COMPARISON: X-ray chest, same date. FINDINGS: Lung parenchyma and airways: Clear. Pleura: Unremarkable. Thoracic inlet, axillae and chest wall: Unremarkable. Thoracic aorta: No significant dilation. No dissection. Mild atherosclerotic calcification Mediastinum: Normal. Heart and pericardium: Mitral calcification. Coronary artery calcifications: Moderate. Upper abdomen: No significant finding. Bones: No acute osseous finding. Pulmonary arteries: Study quality: Adequate. No pulmonary emboli detected. IMPRESSION: No CT evidence of acute pulmonary embolus. No acute process detected in the chest. Reviewed, dictated and finalized at location K. TING MATERIAL CARRIER
--- NOTE | 2024-05-29 17:53 | ECG_ITS ---
Test Date: 2024-05-29 18:20:23 Measurements Intervals [place] Rate: 79 P: -15 OK: 123 QRS: -2 QRSD: 82 T: 57 QT: 281 QTc: 322 Interpretive Statements SINUS RHYTHM NONSPECIFIC ST-T WAVE ABNORMALITY- ANTEROLATERAL LEADS BASELINE ARTIFACT- I, II, III, AVR, AVL, AVF, V1, V4-V5 BORDERLINE ECG No previous ECG available for comparison Electronically Signed On 05-29-2024 19:03:01 [employer] STRATEGIST by Abad Samano D.O.
--- NOTE | 2024-05-29 18:20 | ED.CHESTPAIN ---
HPI - Chest Pain General Chief Complaint: Chest Pain <Siomara Robison PA-C - Last Filed: 05/30/24 10:35> Stated Complaint: chest pain <Siomara Robison PA-C - Last Filed: 05/30/24 10:35> Time Seen by Provider: 05/29/24 18:20 <Siomara Robison PA-C - Last Filed: 05/30/24 10:35> Focused HPI: This is a 89 year old female that presents to the ER for chest pain. Started yesterday. Ongoing intermittently. Reports worse with movement. She has also had pain in her back. Reports shortness of breath, cough. GENERAL: Elderly, well-nourished, and in no acute distress. HEAD: Normocephalic, atraumatic. CHEST: Clear to auscultation. ?No respiratory distress. HEART: Regular rate and rhythm.? NEURO: ?Alert and oriented x3. Patient screened in triage and initial orders placed.? ?Additional care and disposition to be based upon?diagnostic testing and treatment. <Siomara Robison PA-C - Last Filed: 05/30/24 10:35> Source: patient <Ki Mancia PA-C - Last Filed: 05/30/24 02:26> Mode of arrival: ambulatory <MUSTAPHA Hernandez Last Filed: 05/30/24 02:26> Limitations: no limitations <Ki Mancia PA-C - Last Filed: 05/30/24 02:26> History of Present Illness HPI narrative: This is an 89-year-old female with PMH of T2 dm, HTN, CAD who presents to the ED for chief complaint of chest pain that started yesterday. States that she was just sitting around when the pain started. Reports the pain is intermittent, comes and goes. She does report that she took 1 sublingual nitro tab prior to arrival which took her pain from 9 to 0. States that it is worse with activity. Denies specific exertional component to the pain. Endorses left-sided chest pain. States that sometimes she feels the pain in her back but does is not sure if it is a radiating pain. States that she had a little bit of dyspnea earlier today but this was relieved after a few seconds. Endorses mild bilateral leg swelling that has been present for several weeks. Denies unilateral leg swelling. Denies lightheadedness, dizziness, numbness, weakness, abdominal pain, nausea, vomiting, syncope. Currently pain-free. <Ki Mancia PA-C - Last Filed: 05/30/24 02:26> Related Data Home Medications: Home Medications ?Medication ?Instructions ?Recorded ?Confirmed ?Last Taken ?Type albuterol sulfate 90 mcg/actuation 2 puff inhalation Q4-6H PRN 02/20/20 05/30/24 Unknown History aerosol inhaler Shortness Of Breath Or Wheezing alprazolam 0.5 mg tablet 0.5 mg PO Q12H Anxiety 02/20/20 05/30/24 Unknown History meclizine 25 mg tablet 25 mg PO Q8H PRN Dizziness Or 02/20/20 05/30/24 Unknown History Vertigo pitavastatin calcium 4 mg tablet 4 mg PO DAILY 02/20/20 05/30/24 Unknown History (Livalo) acetaminophen 500 mg tablet 500 mg PO Q6H PRN Pain (Scale 09/14/21 05/30/24 Unknown History Score 1-3) aspirin 81 mg tablet,delayed 81 mg PO DAILY 09/14/21 05/30/24 Unknown History release cholecalciferol (vitamin D3) 125 125 mcg PO DAILY 09/14/21 05/30/24 Unknown History mcg (5,000 unit) capsule famotidine 20 mg tablet 20 mg PO Q12H 09/14/21 05/30/24 Unknown History levocetirizine 5 mg tablet (Xyzal) 5 mg PO DAILY PRN Allergy Symptoms 09/14/21 05/30/24 Unknown History nitroglycerin 0.4 mg sublingual 0.4 mg sublingual Q5M PRN Chest 09/14/21 05/30/24 Unknown History tablet Pain isosorbide mononitrate 30 mg 30 mg PO DAILY 05/30/24 05/30/24 Unknown History tablet,extended release 24 hr losartan 50 mg-hydrochlorothiazide 1 tablet PO DAILY 05/30/24 05/30/24 Unknown History 12.5 mg tablet nystatin 100,000 unit/gram topical 1 applic topical BID 05/30/24 05/30/24 Unknown History cream <Siomara Robison PA-C - Last Filed: 05/30/24 10:35> Allergies/Adverse Reactions: Allergies Allergy/AdvReac Type Severity Reaction Status Date / Time Penicillins Allergy Unknown Rash Verified 05/29/24 17:53 <Siomara Robison PA-C - Last Filed: 05/30/24 10:35> Review of Systems Review of Systems: All systems as dictated in HPI <Ki Mancia PA-C - Last Filed: 05/30/24 02:26> [facility] Past Medical History Medical History: Medical History (Updated 05/29/24 @ 23:54 by Ki Mancia PA-C) Arthritis Hiatal hernia GERD (gastroesophageal reflux disease) Anxiety Obesity (BMI 30.0-34.9) Asthma Coronary artery disease Diabetes mellitus Hypertension <Siomara Robison PA-C - Last Filed: 05/30/24 10:35> Surgical History Surgical History: Surgical History (Updated 09/14/21 @ 14:37 by Zoe Allen, RET[employer] FURNACE OPERATOR) S/P lumpectomy, left breast S/P total hysterectomy and BSO (bilateral salpingo-oophorectomy) H/O cardiac catheterization <Siomara Robison PA-C - Last Filed: 05/30/24 10:35> Family History Family History: Family History Father Malignant neoplasm of prostate <Siomara Robison PA-C - Last Filed: 05/30/24 10:35> Social History Social History: Social History (Updated 09/14/21 @ 14:38 by Zoe Allen, [employer] FURNACE OPERATOR) Smoking status: Never smoker Second hand tobacco smoke exposure: No Alcohol intake: never Substance use: never Substance use type: does not use Do You Feel Safe in your Home?: Yes Lack of Transportation: No Lack of Food: Never True Current Housing: I Have Housing Concerned About Future Housing: No Difficulty Paying Gas/Electric Bills: No Difficulty Paying for Meds: No Currently Unemployed: No Education: High School Diploma/GED Difficulty w/ Childcare or Family Care: No Living arrangements: with family Gender identity (if verbalized by the patient): Female Spiritual care concerns: No <Siomara Robison PA-C - Last Filed: 05/30/24 10:35> Exam Narrative: GENERAL: Well-appearing, well-nourished, and in no acute distress. HEAD: Normocephalic, atraumatic. EYES: PERRLA and EOMI. ENT: Nares clear, no rhinorrhea or epistaxis. Mucous membranes moist. Oropharynx without tonsillar hypertrophy exudate or other lesions. NECK: Supple. No adenopathy or masses. CHEST: No respiratory distress. Clear to auscultation. No wheezes rales or rhonchi HEART: Regular rate and rhythm. No murmur heard. Normal peripheral pulses. ABDOMEN: Soft, nontender, nondistended, normal active bowel sounds. MSK: Normal range of motion. No edema. SKIN: Warm, dry, no rash. NEURO: Alert and oriented x4. No focal deficits. PSYCH: Normal mood and affect. <Ki Mancia PA-C - Last Filed: 05/30/24 02:26> Course PIGMENT MIXER/PA Physician Supervision Patient's HPI, Exam, and MDM were reviewed and I agreed with the workup and disposition done in the emergency department by the MLP. I was available for consultation, but was not directly involved with patient's care nor did I evaluate the patient. <Zaid Soares MD - Last Filed: 05/30/24 07:21> Vital Signs Vital signs: Vital Signs Temperature 97.4 F L 05/29/24 18:17 Pulse Rate 88 05/29/24 18:17 Respiratory Rate 16 05/29/24 18:17 Blood Pressure 189/81 H 05/29/24 18:17 Pulse Oximetry 100 05/29/24 18:17 Temperature 98.0 F 05/30/24 08:00 Pulse Rate 63 05/30/24 08:00 Respiratory Rate 20 05/30/24 08:00 Blood Pressure 133/53 L 05/30/24 08:00 Pulse Oximetry 94 05/30/24 08:00 Oxygen Delivery Room Air 05/29/24 22:37 <Siomara Robison PA-C - Last Filed: 05/30/24 10:35> Vital Signs Temperature 97.4 F L 05/29/24 18:17 Pulse Rate 88 05/29/24 18:17 Respiratory Rate 16 05/29/24 18:17 Blood Pressure 189/81 H 05/29/24 18:17 Pulse Oximetry 100 05/29/24 18:17 Temperature 98.0 F 05/30/24 08:00 Pulse Rate 63 05/30/24 08:00 Respiratory Rate 20 05/30/24 08:00 Blood Pressure 133/53 L 05/30/24 08:00 Pulse Oximetry 94 05/30/24 08:00 Oxygen Delivery Room Air 05/29/24 22:37 <Ki Mancia PA-C - Last Filed: 05/30/24 02:26> Vital Signs Temperature 97.4 F L 05/29/24 18:17 Pulse Rate 88 05/29/24 18:17 Respiratory Rate 16 05/29/24 18:17 Blood Pressure 189/81 H 05/29/24 18:17 Pulse Oximetry 100 05/29/24 18:17 Temperature 98.0 F 05/30/24 08:00 Pulse Rate 63 05/30/24 08:00 Respiratory Rate 20 05/30/24 08:00 Blood Pressure 133/53 L 05/30/24 08:00 Pulse Oximetry 94 05/30/24 08:00 Oxygen Delivery Room Air 05/29/24 22:37 <Zaid Soares MD - Last Filed: 05/30/24 07:21> MDM - Chest Pain MDM Narrative Medical decision making narrative: This is a 89-year-old female who presents to the ED for chief complaint of left-sided chest pain intermittent over the past day. Vitals on arrival do show elevated blood pressure but otherwise are normal. EKG shows normal sinus rhythm with no acute ischemia. She did take a nitro tab prior to being evaluated which apparently took her pain from 9 to 0. Lab work shows normal troponin at 0 and 3 hours. Chest x-ray is negative. Labs are overall unremarkable. Chest CTA is also unremarkable for any acute intrathoracic findings. Her heart score is 4. On re-evaluation of the patient she remains chest pain free. Discussed with patient that she does have an elevated heart score, however her presentation today is reassuring. She would like to be admitted for chest pain rule out and to see Cardiology in the hospital. Her blood pressure did remain elevated in the 170s to 180s she was given 10 mg of labetalol with good effect. P.o. ASA was given as well. Discussed the case with hospitalist, Dr. Baeza who agrees to admit the patient to IMU. <Ki Mancia PA-C - Last Filed: 05/30/24 02:26> Lab Data Result diagrams: 05/30/24 04:25 05/30/24 04:25 <Siomara Robison PA-C - Last Filed: 05/30/24 10:35> Labs: Lab Results 05/29/24 05/29/24 05/30/24 Range/Units 18:29 21:34 00:31 WBC 6.8 (4.5-10.0) K/mm3 RBC 4.04 L (4.2-5.4) M/mm3 Hgb 12.8 (12.0-15.0) g/dL Hct 37.8 (37.0-47.0) % MCV 93.6 (80-100) fl MCH 31.7 (26-34) pg MCHC 33.9 (32-36) g/dl RDW 12.0 (11.5-14.5) % Plt Count 167 (150-375) k/mm3 MPV 11.0 H (7.4-10.4) fl Immature Gran % (Auto) 0.3 (0-0.5) % Neut % (Auto) 64.1 (45.5-73.1) % Lymph % (Auto) 27.8 (18.3-44.2) % Douglas % (Auto) 6.1 (2.6-8.5) % Eos % (Auto) 1.6 (0-4.4) % Baso % (Auto) 0.1 L (0.2-1.2) % Lymph # (Auto) 1.90 (0.9-3.2) K/mm3 Douglas # (Auto) 0.4 (0.1-0.6) K/mm3 Eos # (Auto) 0.1 (0-0.3) K/mm3 Baso # (Auto) 0.0 (0.0-0.1) K/mm3 Abs Immat Gran (auto) 0.02 (0.00-0.031) K/mm3 Absolute Neuts (auto) 4.4 (1.3-6.7) K/mm3 Absolute Nucleated RBC 0.000 (0.0-0.012) K/mm3 Nucleated RBC % 0.0 (0.0-0.2) % PT 14.2 (11.1-14.7) Seconds INR 1.1 APTT 34.0 (22.3-36.8) Seconds Sodium 139 (137-145) mmol/L Potassium 4.3 (3.4-5.0) mmol/L Chloride 101 (98-107) mmol/L Carbon Dioxide 30 (22-30) mmol/L Anion Gap 8 (4-12) mmol/L BUN 20 H (7-17) mg/dL Creatinine 1.07 H (0.7-1.0) mg/dL Estim Creat Clear Calc 35 ml/min Estimated GFR 48 L (59 - ) Glucose 145 H (65-110) mg/dL Calcium 10.2 (8.4-10.2) mg/dL Total Bilirubin 1.1 (0.2-1.3) mg/dL AST 25 (14-36) U/L ALT 19 (6-35) U/L Alkaline Phosphatase 55 (38-126) U/L Troponin I < 0.012 < 0.012 < 0.012 (0.000-0.034) ng/mL NT-Pro-B Natriuret Pep 414 H (19.9-100) pg/mL Total Protein 7.0 (6.3-8.2) g/dL Albumin 4.2 (3.5-5.1) g/dL Lipase 114 (23-300) U/L Influenza A (RT-PCR) Negative (Negative) Influenza B (RT-PCR) Negative (Negative) RSV (RT-PCR) Negative (Negative) SARS-CoV-2 RNA (RT-PCR) Negative (Negative) 05/30/24 Range/Units 04:25 WBC 8.2 (4.5-10.0) K/mm3 RBC 3.66 L (4.2-5.4) M/mm3 Hgb 11.5 L (12.0-15.0) g/dL Hct 34.2 L (37.0-47.0) % MCV 93.4 (80-100) fl MCH 31.4 (26-34) pg MCHC 33.6 (32-36) g/dl RDW 12.0 (11.5-14.5) % Plt Count 145 L (150-375) k/mm3 MPV 10.2 (7.4-10.4) fl Immature Gran % (Auto) 0.4 (0-0.5) % Neut % (Auto) 54.9 (45.5-73.1) % Lymph % (Auto) 35.8 (18.3-44.2) % Douglas % (Auto) 6.8 (2.6-8.5) % Eos % (Auto) 1.9 (0-4.4) % Baso % (Auto) 0.2 (0.2-1.2) % Lymph # (Auto) 2.95 (0.9-3.2) K/mm3 Douglas # (Auto) 0.6 (0.1-0.6) K/mm3 Eos # (Auto) 0.2 (0-0.3) K/mm3 Baso # (Auto) 0.0 (0.0-0.1) K/mm3 Abs Immat Gran (auto) 0.03 (0.00-0.031) K/mm3 Absolute Neuts (auto) 4.5 (1.3-6.7) K/mm3 Absolute Nucleated RBC 0.000 (0.0-0.012) K/mm3 Nucleated RBC % 0.0 (0.0-0.2) % PT (11.1-14.7) Seconds INR APTT (22.3-36.8) Seconds Sodium 140 (137-145) mmol/L Potassium 4.2 (3.4-5.0) mmol/L Chloride 103 (98-107) mmol/L Carbon Dioxide 27 (22-30) mmol/L Anion Gap 10 (4-12) mmol/L BUN 16 (7-17) mg/dL Creatinine 1.14 H (0.7-1.0) mg/dL Estim Creat Clear Calc 33 ml/min Estimated GFR 45 L (59 - ) Glucose 123 H (65-110) mg/dL Calcium 9.8 (8.4-10.2) mg/dL Total Bilirubin 1.1 (0.2-1.3) mg/dL AST 18 (14-36) U/L ALT 17 (6-35) U/L Alkaline Phosphatase 58 (38-126) U/L Troponin I (0.000-0.034) ng/mL NT-Pro-B Natriuret Pep (19.9-100) pg/mL Total Protein 6.0 L (6.3-8.2) g/dL Albumin 3.5 (3.5-5.1) g/dL Lipase (23-300) U/L Influenza A (RT-PCR) (Negative) Influenza B (RT-PCR) (Negative) RSV (RT-PCR) (Negative) SARS-CoV-2 RNA (RT-PCR) (Negative) <Siomara Robison PA-C - Last Filed: 05/30/24 10:35> Lab Results 05/29/24 05/29/24 05/30/24 Range/Units 18:29 21:34 00:31 WBC 6.8 (4.5-10.0) K/mm3 RBC 4.04 L (4.2-5.4) M/mm3 Hgb 12.8 (12.0-15.0) g/dL Hct 37.8 (37.0-47.0) % MCV 93.6 (80-100) fl MCH 31.7 (26-34) pg MCHC 33.9 (32-36) g/dl RDW 12.0 (11.5-14.5) % Plt Count 167 (150-375) k/mm3 MPV 11.0 H (7.4-10.4) fl Immature Gran % (Auto) 0.3 (0-0.5) % Neut % (Auto) 64.1 (45.5-73.1) % Lymph % (Auto) 27.8 (18.3-44.2) % Douglas % (Auto) 6.1 (2.6-8.5) % Eos % (Auto) 1.6 (0-4.4) % Baso % (Auto) 0.1 L (0.2-1.2) % Lymph # (Auto) 1.90 (0.9-3.2) K/mm3 Douglas # (Auto) 0.4 (0.1-0.6) K/mm3 Eos # (Auto) 0.1 (0-0.3) K/mm3 Baso # (Auto) 0.0 (0.0-0.1) K/mm3 Abs Immat Gran (auto) 0.02 (0.00-0.031) K/mm3 Absolute Neuts (auto) 4.4 (1.3-6.7) K/mm3 Absolute Nucleated RBC 0.000 (0.0-0.012) K/mm3 Nucleated RBC % 0.0 (0.0-0.2) % PT 14.2 (11.1-14.7) Seconds INR 1.1 APTT 34.0 (22.3-36.8) Seconds Sodium 139 (137-145) mmol/L Potassium 4.3 (3.4-5.0) mmol/L Chloride 101 (98-107) mmol/L Carbon Dioxide 30 (22-30) mmol/L Anion Gap 8 (4-12) mmol/L BUN 20 H (7-17) mg/dL Creatinine 1.07 H (0.7-1.0) mg/dL Estim Creat Clear Calc 35 ml/min Estimated GFR 48 L (59 - ) Glucose 145 H (65-110) mg/dL Calcium 10.2 (8.4-10.2) mg/dL Total Bilirubin 1.1 (0.2-1.3) mg/dL AST 25 (14-36) U/L ALT 19 (6-35) U/L Alkaline Phosphatase 55 (38-126) U/L Troponin I < 0.012 < 0.012 < 0.012 (0.000-0.034) ng/mL NT-Pro-B Natriuret Pep 414 H (19.9-100) pg/mL Total Protein 7.0 (6.3-8.2) g/dL Albumin 4.2 (3.5-5.1) g/dL Lipase 114 (23-300) U/L Influenza A (RT-PCR) Negative (Negative) Influenza B (RT-PCR) Negative (Negative) RSV (RT-PCR) Negative (Negative) SARS-CoV-2 RNA (RT-PCR) Negative (Negative) 05/30/24 Range/Units 04:25 WBC 8.2 (4.5-10.0) K/mm3 RBC 3.66 L (4.2-5.4) M/mm3 Hgb 11.5 L (12.0-15.0) g/dL Hct 34.2 L (37.0-47.0) % MCV 93.4 (80-100) fl MCH 31.4 (26-34) pg MCHC 33.6 (32-36) g/dl RDW 12.0 (11.5-14.5) % Plt Count 145 L (150-375) k/mm3 MPV 10.2 (7.4-10.4) fl Immature Gran % (Auto) 0.4 (0-0.5) % Neut % (Auto) 54.9 (45.5-73.1) % Lymph % (Auto) 35.8 (18.3-44.2) % Douglas % (Auto) 6.8 (2.6-8.5) % Eos % (Auto) 1.9 (0-4.4) % Baso % (Auto) 0.2 (0.2-1.2) % Lymph # (Auto) 2.95 (0.9-3.2) K/mm3 Douglas # (Auto) 0.6 (0.1-0.6) K/mm3 Eos # (Auto) 0.2 (0-0.3) K/mm3 Baso # (Auto) 0.0 (0.0-0.1) K/mm3 Abs Immat Gran (auto) 0.03 (0.00-0.031) K/mm3 Absolute Neuts (auto) 4.5 (1.3-6.7) K/mm3 Absolute Nucleated RBC 0.000 (0.0-0.012) K/mm3 Nucleated RBC % 0.0 (0.0-0.2) % PT (11.1-14.7) Seconds INR APTT (22.3-36.8) Seconds Sodium 140 (137-145) mmol/L Potassium 4.2 (3.4-5.0) mmol/L Chloride 103 (98-107) mmol/L Carbon Dioxide 27 (22-30) mmol/L Anion Gap 10 (4-12) mmol/L BUN 16 (7-17) mg/dL Creatinine 1.14 H (0.7-1.0) mg/dL Estim Creat Clear Calc 33 ml/min Estimated GFR 45 L (59 - ) Glucose 123 H (65-110) mg/dL Calcium 9.8 (8.4-10.2) mg/dL Total Bilirubin 1.1 (0.2-1.3) mg/dL AST 18 (14-36) U/L ALT 17 (6-35) U/L Alkaline Phosphatase 58 (38-126) U/L Troponin I (0.000-0.034) ng/mL NT-Pro-B Natriuret Pep (19.9-100) pg/mL Total Protein 6.0 L (6.3-8.2) g/dL Albumin 3.5 (3.5-5.1) g/dL Lipase (23-300) U/L Influenza A (RT-PCR) (Negative) Influenza B (RT-PCR) (Negative) RSV (RT-PCR) (Negative) SARS-CoV-2 RNA (RT-PCR) (Negative) <Ki Mancia PA-C - Last Filed: 05/30/24 02:26> Lab Results 05/29/24 05/29/24 05/30/24 Range/Units 18:29 21:34 00:31 WBC 6.8 (4.5-10.0) K/mm3 RBC 4.04 L (4.2-5.4) M/mm3 Hgb 12.8 (12.0-15.0) g/dL Hct 37.8 (37.0-47.0) % MCV 93.6 (80-100) fl MCH 31.7 (26-34) pg MCHC 33.9 (32-36) g/dl RDW 12.0 (11.5-14.5) % Plt Count 167 (150-375) k/mm3 MPV 11.0 H (7.4-10.4) fl Immature Gran % (Auto) 0.3 (0-0.5) % Neut % (Auto) 64.1 (45.5-73.1) % Lymph % (Auto) 27.8 (18.3-44.2) % Douglas % (Auto) 6.1 (2.6-8.5) % Eos % (Auto) 1.6 (0-4.4) % Baso % (Auto) 0.1 L (0.2-1.2) % Lymph # (Auto) 1.90 (0.9-3.2) K/mm3 Douglas # (Auto) 0.4 (0.1-0.6) K/mm3 Eos # (Auto) 0.1 (0-0.3) K/mm3 Baso # (Auto) 0.0 (0.0-0.1) K/mm3 Abs Immat Gran (auto) 0.02 (0.00-0.031) K/mm3 Absolute Neuts (auto) 4.4 (1.3-6.7) K/mm3 Absolute Nucleated RBC 0.000 (0.0-0.012) K/mm3 Nucleated RBC % 0.0 (0.0-0.2) % PT 14.2 (11.1-14.7) Seconds INR 1.1 APTT 34.0 (22.3-36.8) Seconds Sodium 139 (137-145) mmol/L Potassium 4.3 (3.4-5.0) mmol/L Chloride 101 (98-107) mmol/L Carbon Dioxide 30 (22-30) mmol/L Anion Gap 8 (4-12) mmol/L BUN 20 H (7-17) mg/dL Creatinine 1.07 H (0.7-1.0) mg/dL Estim Creat Clear Calc 35 ml/min Estimated GFR 48 L (59 - ) Glucose 145 H (65-110) mg/dL Calcium 10.2 (8.4-10.2) mg/dL Total Bilirubin 1.1 (0.2-1.3) mg/dL AST 25 (14-36) U/L ALT 19 (6-35) U/L Alkaline Phosphatase 55 (38-126) U/L Troponin I < 0.012 < 0.012 < 0.012 (0.000-0.034) ng/mL NT-Pro-B Natriuret Pep 414 H (19.9-100) pg/mL Total Protein 7.0 (6.3-8.2) g/dL Albumin 4.2 (3.5-5.1) g/dL Lipase 114 (23-300) U/L Influenza A (RT-PCR) Negative (Negative) Influenza B (RT-PCR) Negative (Negative) RSV (RT-PCR) Negative (Negative) SARS-CoV-2 RNA (RT-PCR) Negative (Negative) 05/30/24 Range/Units 04:25 WBC 8.2 (4.5-10.0) K/mm3 RBC 3.66 L (4.2-5.4) M/mm3 Hgb 11.5 L (12.0-15.0) g/dL Hct 34.2 L (37.0-47.0) % MCV 93.4 (80-100) fl MCH 31.4 (26-34) pg MCHC 33.6 (32-36) g/dl RDW 12.0 (11.5-14.5) % Plt Count 145 L (150-375) k/mm3 MPV 10.2 (7.4-10.4) fl Immature Gran % (Auto) 0.4 (0-0.5) % Neut % (Auto) 54.9 (45.5-73.1) % Lymph % (Auto) 35.8 (18.3-44.2) % Douglas % (Auto) 6.8 (2.6-8.5) % Eos % (Auto) 1.9 (0-4.4) % Baso % (Auto) 0.2 (0.2-1.2) % Lymph # (Auto) 2.95 (0.9-3.2) K/mm3 Douglas # (Auto) 0.6 (0.1-0.6) K/mm3 Eos # (Auto) 0.2 (0-0.3) K/mm3 Baso # (Auto) 0.0 (0.0-0.1) K/mm3 Abs Immat Gran (auto) 0.03 (0.00-0.031) K/mm3 Absolute Neuts (auto) 4.5 (1.3-6.7) K/mm3 Absolute Nucleated RBC 0.000 (0.0-0.012) K/mm3 Nucleated RBC % 0.0 (0.0-0.2) % PT (11.1-14.7) Seconds INR APTT (22.3-36.8) Seconds Sodium 140 (137-145) mmol/L Potassium 4.2 (3.4-5.0) mmol/L Chloride 103 (98-107) mmol/L Carbon Dioxide 27 (22-30) mmol/L Anion Gap 10 (4-12) mmol/L BUN 16 (7-17) mg/dL Creatinine 1.14 H (0.7-1.0) mg/dL Estim Creat Clear Calc 33 ml/min Estimated GFR 45 L (59 - ) Glucose 123 H (65-110) mg/dL Calcium 9.8 (8.4-10.2) mg/dL Total Bilirubin 1.1 (0.2-1.3) mg/dL AST 18 (14-36) U/L ALT 17 (6-35) U/L Alkaline Phosphatase 58 (38-126) U/L Troponin I (0.000-0.034) ng/mL NT-Pro-B Natriuret Pep (19.9-100) pg/mL Total Protein 6.0 L (6.3-8.2) g/dL Albumin 3.5 (3.5-5.1) g/dL Lipase (23-300) U/L Influenza A (RT-PCR) (Negative) Influenza B (RT-PCR) (Negative) RSV (RT-PCR) (Negative) SARS-CoV-2 RNA (RT-PCR) (Negative) <Zaid Soares MD - Last Filed: 05/30/24 07:21> Imaging Data Radiologist's impression: ITS Impressions Chest X-Ray 05/29/24 18:33 IMPRESSION: No acute cardiopulmonary process. Chest CTA 05/29/24 23:30 IMPRESSION: No CT evidence of acute pulmonary embolus. No acute process detected in the chest. <Siomara Robison PA-C - Last Filed: 05/30/24 10:35> Critical Care Time Critical Care Time Critical Care Time: No <Siomara Robison PA-C - Last Filed: 05/30/24 10:35> Discharge Plan Discharge Clinical Impression: Chest pain Qualifiers: Chest pain type: unspecified Qualified Code(s): R07.9 - Chest pain, unspecified <Siomara Robison PA-C - Last Filed: 05/30/24 10:35> Patient Disposition: Still a Patient <Siomara Robison PA-C - Last Filed: 05/30/24 10:35> Condition: Stable <Siomara Robison PA-C - Last Filed: 05/30/24 10:35>
--- OUTSIDE RECORDS SUMMARY | 2024-05-29 18:47 | XMS_ITS | Continuity of Care Document ---
Author Organization [facility] Address [address] [place] [address] [place] [address] Phone Care Team Providers Care Wick And Base Assembler Name Role Phone Demetri Baker MD Unavailable Unavailable Allergies, Adverse Reactions, Alerts Substance Reaction Status Criticality Penicillins Active No Information Medications Medication Instructions Dosage Effective Dates (start - stop) Status Comments Ventolin HFA 90 mcg/actuation aerosol inhaler inhale 2 puff by inhalation route every 4 - 6 hours as needed as needed - Active PRn for sob losartan 50 mg-hydrochlorothi azide 12.5 mg tablet take 1 tablet by oral route every day 1.00 tablet - Active Xanax 0.5 mg tablet take 1 tablet by oral route 2 times every day 0.5 MG - Active avoid driving or operate machines Pepcid 20 mg tablet take 1 tablet by oral route 2 times every day 20 MG - Active Celebrex 200 mg capsule take 1 capsule by oral route every day as needed as needed 200 MG - Active PRN for knee and shoulder pain meclizine 25 mg tablet take 1 tablet by oral route 2 times every day as needed as needed 25 MG - Active PRN for vertigo, avoid driving or operate machines isosorbide dinitrate 30 mg tablet take 1 tablet by oral route every day 30 MG - Active metoprolol tartrate 25 mg tablet take 1 tablet by oral route 3 times every day 25 MG - Active Livalo 4 mg tablet take 1 tablet by oral route every day 4 MG - Active Procedures Procedure Date OFFICE/OUTPATIENT VISIT, EST PREV VISIT, EST, 65 & OVER OFFICE/OUTPATIENT VISIT, EST OFFICE/OUTPATIENT VISIT, EST OFFICE/OUTPATIENT VISIT, EST OFFICE/OUTPATIENT VISIT, EST OFFICE/OUTPATIENT VISIT, EST PREV VISIT, EST, 65 & OVER OFFICE/OUTPATIENT VISIT, EST OFFICE/OUTPATIENT VISIT, EST OFFICE/OUTPATIENT VISIT, EST OFFICE/OUTPATIENT VISIT, EST OFFICE/OUTPATIENT VISIT, EST OFFICE/OUTPATIENT VISIT, EST OFFICE/OUTPATIENT VISIT, EST PREV VISIT, EST, 65 & OVER OFFICE/OUTPATIENT VISIT, EST OFFICE/OUTPATIENT VISIT, EST OFFICE/OUTPATIENT VISIT, EST OFFICE/OUTPATIENT VISIT, EST OFFICE/OUTPATIENT VISIT, EST PPPS, subseq visit OFFICE/OUTPATIENT VISIT, EST OFFICE/OUTPATIENT VISIT, EST OFFICE/OUTPATIENT VISIT, EST PPPS, subseq visit OFFICE/OUTPATIENT VISIT, EST OFFICE/OUTPATIENT VISIT, EST OFFICE/OUTPATIENT VISIT, EST OFFICE/OUTPATIENT VISIT, EST PPPS, subseq visit OFFICE/OUTPATIENT VISIT, EST OFFICE/OUTPATIENT VISIT, EST OFFICE/OUTPATIENT VISIT, EST OFFICE/OUTPATIENT VISIT, EST OFFICE/OUTPATIENT VISIT, EST OFFICE/OUTPATIENT VISIT, EST OFFICE/OUTPATIENT VISIT, EST OFFICE/OUTPATIENT VISIT, EST OFFICE/OUTPATIENT VISIT, EST OFFICE/OUTPATIENT VISIT, EST OFFICE/OUTPATIENT VISIT, EST OFFICE/OUTPATIENT VISIT, EST OFFICE/OUTPATIENT VISIT, EST OFFICE/OUTPATIENT VISIT, EST OFFICE/OUTPATIENT VISIT, EST OFFICE/OUTPATIENT VISIT, EST OFFICE/OUTPATIENT VISIT, EST OFFICE/OUTPATIENT VISIT, EST OFFICE/OUTPATIENT VISIT, EST OFFICE/OUTPATIENT VISIT, NEW Advance Directives Directive Yes / No Effective Date File Name No Information Encounters Encounter Description Practice Location Reason(s) For Visit Diagnoses Date Provider Providers Copied on Encounter OFFICE/OUTPA TIENT VISIT, EST [facility], [address], [place], [place], [address], [place] tel:[phone] [facility] DM (chief complaint)ruel al (chief complaint)ancelmo i1 (chief complaint)hig h D (chief complaint) Hypertensive kidney diseaseType 2 diabetes mellitus without complicationsDis order of bilirubin metabolism, unspecifiedOther specified disorder of bone density 4 Samuel Roblero [address], [place], [place], [address] , [place]. tel:[phone] PREV VISIT, EST, [address] [facility], [address], [place], [place], [address], [place] tel:[phone] [facility] physical (chief complaint) Encounter for general adult medical exam w abnormal findingsGenerali zed Anxiety DisorderGERD w/o esophagitisCoron leslie artery disease of seneca coronary artery without angina pectorisAnemiaSt age III chronic renal diseaseType 2 diabetes mellitus without complicationsEss ential (primary) hypertensionMild intermittent asthma, uncomplicatedMix ed hyperlipidemia 4 Samuel Roblero [address], [place], [place], [address] , [place]. tel:[phone] [facility], [address], [place], [place], [address], [place] tel:[phone] [facility] No Information 4 Samuel Roblero [address], [place], [place], [address] , [place]. tel:[phone] OFFICE/OUTPA TIENT VISIT, [facility], [address] [place], [address], [place] tel:[phone] [facility] GERD1 (chief complaint) GERD w/o esophagitis 4 [facility] [place], [place], [address] , [place]. tel:[phone] OFFICE/OUTPA TIENT VISIT, [facility], [address] [place], [place], [address], tel:[phone] [facility] anxiety1 (chief complaint)sob (chief complaint)kne e pain1 (chief complaint)mitesh tigo1 (chief complaint) Generalized Anxiety DisorderBenign paroxysmal vertigo, bilateralChronic pain syndromeDyspnea 4 [facility] [address] [facility] [place], [place], [address] , [place]. tel:[phone] OFFICE/OUTPA TIENT VISIT, [facility], [address] [place] [place], [place], [address], [place] tel:[phone] [facility] anemia1 (chief complaint)DM (chief complaint)ruel al disease1 (chief complaint)kne e pain1 (chief complaint) AnemiaType 2 diabetes mellitus without complicationsSta ge III chronic renal diseaseBilateral primary osteoarthritis of kneeCoronary artery disease of seneca coronary artery without angina pectoris 3 Samuel [facility] [address] [facility] [place], [place], [address] , [place]. tel:[phone] OFFICE/OUTPA TIENT VISIT, [facility], [address] [place], [place], [address], [place] tel:[phone] [facility] HTN (chief complaint)leg pain1 (chief complaint)ins omnia1 (chief complaint)aylin nt pain1 (chief complaint)YEN D1 (chief complaint) Pain in left lower legEdemaEssentia l (primary) hypertensionGene ralized Anxiety DisorderMild intermittent asthma, uncomplicatedGER D w/o esophagitis 3 Samuel [facility]o [address] [facility] [place], [place], [address] , [place]. [phone] PREV VISIT, EST, [address] [facility], [address], [place], [place], [address], [place] tel:[phone] [facility] physical (chief complaint) Encounter for general adult medical exam w abnormal findingsEssentia l (primary) hypertensionGene ralized Anxiety DisorderMixed hyperlipidemiaGE RD w/o esophagitisCoron leslie artery disease of seneca coronary artery without angina pectorisMild intermittent asthma, uncomplicatedHyp ertrophy of nasal turbinates 3 Samuel Mosquera. [address], [place], [place], [address] , [place]. tel:[phone] OFFICE/OUTPA TIENT VISIT, [facility], [address], [place], [place], [address], [place] tel:[phone] [facility] HTN (chief complaint)ton gena (chief complaint)nakita n (chief complaint) Essential (primary) hypertensionSpon taneous ecchymosesChroni c pain syndromeGERD w/o esophagitis 2 Samuel Demetri. [address], [place], [place], [address] , [place]. tel:[phone] OFFICE/OUTPA TIENT VISIT, [facility], [address], [place], [place], [address], [place] tel:[phone] [facility] Medicine tongue1 (chief complaint)diz ziness1 (chief complaint)tin ea rash1 (chief complaint) Essential (primary) hypertensionArte riosclerosis of seneca coronary artery w/ angina pectorisSpontane ous ecchymosesTinea corporis 2 Samuel Mosquera. [address], [place], [place], [address] , [place]. [phone] OFFICE/OUTPA TIENT VISIT, [facility], [address], [place], [place], [address], [place] tel:[phone] [facility] Medicine CAD (chief complaint)anx iety1 (chief complaint) Arteriosclerosis of seneca coronary artery w/ angina pectorisDeficien cy of other specified B group vitaminsEssentia l (primary) hypertensionGene ralized Anxiety Disorder 2 Samuel Mosquera. [address], [place], [place], [address] , [place]. tel:[phone] OFFICE/OUTPA TIENT VISIT, [facility], [address], [place], [place], [address], [place] tel:[phone] [facility] COVID-19 (chief complaint) COVID-19 2 Samuel Mosquera. [address], [place], [place], [address] , [place]. tel:[phone] OFFICE/OUTPA TIENT VISIT, [facility], [address], [place], [place], [address], [place] tel:[phone] [facility] joint pain1 (chief complaint) Chronic pain syndrome 2 Samuel Mosquera. [address], [place], [place], [address] , [place]. tel:[phone] OFFICE/OUTPA TIENT VISIT, [facility], [address], [place], [place], [address], [place] tel:[phone] [facility] b12 (chief complaint)ruel al1 (chief complaint)DM (chief complaint)HLP (chief complaint)anay ma1 (chief complaint)HTN (chief complaint) Essential (primary) hypertensionEdem aType 2 diabetes mellitus without complicationsSta ge III chronic renal diseaseDeficienc y of other specified B group vitaminsHyperlip idemia 2 Samuel Mosquera. [address], [place], [place], [address] , [place]. tel:[phone] PREV VISIT, EST, [address] [facility], [address], [place], [place], [address], [place] tel:[phone] [facility] Medicine physical (chief complaint) Encounter for general adult medical exam w abnormal findingsChest painEssential (primary) hypertensionHype rlipidemiaPain in unspecified jointAllergic rhinitisType 2 diabetes mellitus without complicationsGER D w/o esophagitisInsom grazyna 1 Samuel Roblero [address], [address] , [place]. tel:[phone] OFFICE/OUTPA TIENT VISIT, [facility], [address] [place] [place], [place], [address], [place] tel:[phone] [facility] insomnia1 (chief complaint)loyda udler pain1 (chief complaint)HTN (chief complaint)tyrell st pain1 (chief complaint) Essential (primary) hypertensionChes t painPain in left shoulderInsomnia 1 Samuel Roblero [address] [facility] [facility] [place], [address] , [place]. tel:[phone] OFFICE/OUTPA TIENT VISIT, [facility], [address] [place] [place], [address], [place] tel:[phone] [facility] chest pain1 (chief complaint)HTN (chief complaint) Essential (primary) hypertensionChes t painPain in left shoulder 1 Samuel Roblero [address], [address] , [place]. tel:[phone] OFFICE/OUTPA TIENT VISIT, [facility], [address] [place], [address], [place] tel:[phone] [facility] GERD1 (chief complaint)HTN (chief complaint)ins omnia1 (chief complaint)yessenia mo (chief complaint) Inconclusive mammogramInsomni aEssential (primary) hypertensionGERD w/o esophagitis 1 Samuel Roblero [address], [address] , [place]. tel:[phone] OFFICE/OUTPA TIENT VISIT, [facility], [address] [place], [address], [place] tel:[phone] [facility] DM (chief complaint)ruel al function1 (chief complaint)HLP 1 (chief complaint)Ins omnia (chief complaint)Hyp ertension (chief complaint)sob (chief complaint) Essential (primary) hypertensionType 2 diabetes mellitus without complicationsHyp erlipidemiaRenal diseasePain in unspecified jointShortness of breathInsomniaIn conclusive mammogram 0 0 Samuel Mosquera. [address], [place], [place], [address] , [place]. tel:[phone] OFFICE/OUTPA TIENT VISIT, [facility], [address], [place], [place], [address], [place] tel:[phone] [facility] HTN (chief complaint)DM (chief complaint)YEN D1 (chief complaint)ins omnia1 (chief complaint)sin us allergy1 (chief complaint) Encounter for general adult medical exam w abnormal findingsGERD w/o esophagitisInsom niaHyperlipidemi aType 2 diabetes mellitus without complicationsEss ential (primary) hypertensionAlle rgic rhinitis 0 Samuel Mosquera. [address], [place], [place], [address] , [place]. tel:[phone] OFFICE/OUTPA TIENT VISIT, [facility], [address] [place] [place], [address], [place] tel:[phone] [facility] GERD1 (chief complaint)ins omnia1 (chief complaint)HLP (chief complaint) HyperlipidemiaIn somniaInconclusi ve mammogramVitamin D deficiency, unspecifiedGERD w/o esophagitis Jul- 0 Samuel Mosquera. [address], [place], [place], [address] , [place]. tel:[phone] OFFICE/OUTPA TIENT VISIT, [facility], [address] [place], [address], [place] tel:[phone] [facility] insomnia1 (chief complaint)YEN D` (chief complaint)aylin nt pain1 (chief complaint)HLP (chief complaint)ruel al (chief complaint) Inconclusive mammogramType 2 diabetes mellitus without complicationsHyp erlipidemiaPain in unspecified jointRenal diseaseAnemiaIns omniaGERD w/o esophagitis 9 Samuel [address], [place], [place], [address] , [place]. tel:[phone] [facility], [address], [place], [place], [address], [place] tel:[phone] [facility] HyperlipidemiaRe nal diseaseType 2 diabetes mellitus without complicationsAne divine 9 Samuel Roblero [address], [place], [place], [address] , [place]. tel:[phone] OFFICE/OUTPA TIENT VISIT, [facility], [address] [place], [address], [place] tel:[phone] [facility] sinus (chief complaint)ins omnia1 (chief complaint)HLP (chief complaint)HTN (chief complaint) Essential (primary) hypertensionAcut e sinusitisInsomni aInconclusive mammogramHyperli pidemiaEncounter for general adult medical exam w abnormal findings 9 Samuel Roblero [address], [facility] A, [place], [place], [address] , [place]. [phone] Referring Provider: Griffin [address], [place], [place], [address]. tel:[phone] OFFICE/OUTPA TIENT VISIT, EST [facility], [address] [place], [address], [place] tel:[phone] [facility] shoulder pain1 (chief complaint)DM (chief complaint)HTN (chief complaint)low renal1 (chief complaint)b12 (chief complaint)ski n tag1 (chief complaint) Pain in right shoulderRenal diseaseInconclus driss mammogramType 2 diabetes mellitus without complicationsIns omniaEssential (primary) hypertensionCoro nary artery disease of seneca coronary artery without angina pectorisOther hypertrophic disorders of the skinDeficiency of other specified B group vitamins 9 Samuel Roblero [address], [place], [place], [address] , [place]. tel:[phone] Referring Provider: Griffin [address], [place], [place], [address]. tel:[phone] [facility], [address], [place], [place], [address], [place] tel:[phone] [facility] Inconclusive mammogram 3 0201 8 Samuel Roblero [address], [place], [place], [address] , [place]. tel:[phone] OFFICE/OUTPA TIENT VISIT, [facility], [address], [place], [place], [address], [place] tel:[phone] [facility] insomnia1 (chief complaint)SOB 1 (chief complaint)kne e pain1 (chief complaint)yessenia mo (chief complaint) Inconclusive mammogramInsomni aChronic pain syndromeDyspneaP olyp of colon Sep-2 5 8 Samuel Roblero [address], [place], [place], [address] , [place]. [phone] [facility], [address], [place], [place], [address], [place] tel:[phone] [facility] Inconclusive mammogram Dec- 2- 8 Samuel Roblero [address], [place], [place], [address] , [place]. tel:[phone] OFFICE/OUTPA TIENT VISIT, [facility], [address], [place], [place], [address], [place] tel:[phone] [facility] neck pain1 (chief complaint)col on polyp (chief complaint) HeadacheOther spondylosis, cervical regionPolyp of colonOther muscle spasm Aug-0 8-201 8 Samuel Roblero [address], [place], [place], [address] , [place]. tel:[phone] Referring Provider: Griffin Garcia [address], [place], [place], [address]. tel:[phone] OFFICE/OUTPA TIENT VISIT, [facility], [address], [place], [place], [address], [place] tel:[phone] [facility] Medicine PHysical (chief complaint) Encounter for general adult medical exam w abnormal findingsType 2 diabetes mellitus without complicationsPol yp of colonEssential (primary) hypertensionAsth ma 8 Samuel Robleor [address], [place], [place], [address] , [place]. [phone] Referring Provider: Griffin Garcia [address], [place], [place], [address]. tel:[phone] OFFICE/OUTPA TIENT VISIT, [facility], [address], [place], [place], [address], [place] tel:[phone] [facility] insomnia1 (chief complaint)DM. (chief complaint)HTN (chief complaint)vit butler d (chief complaint) InsomniaType 2 diabetes mellitus without complicationsEss ential (primary) hypertensionEdem a 7 Samuel Roblero [address], [place], [place], [address] , [place]. [phone] Referring Provider: Griffin Garcia [address], [place], [place], [address]. tel:[phone] OFFICE/OUTPA TIENT VISIT, [facility], [address], [place], [place], [address], [place] tel:[phone] [facility] insomnia1 (chief complaint)DM (chief complaint)HTN (chief complaint)raymond telet (chief complaint)aylin nt pain1 (chief complaint)sin us allergy (chief complaint) Type 2 diabetes mellitus without complicationsIns omniaEssential (primary) hypertensionAlle rgic rhinitis 0 7 Samuel Roblero [address], [place], [place], [address] , [place]. [phone] Referring Provider: Griffin Garcia [address], [place], [place], [address]. tel:[phone] OFFICE/OUTPA TIENT VISIT, [facility], [address], [place], [place], [address], [place] tel:[phone] [facility] HLP (chief complaint)DM (chief complaint)raymond telet (chief complaint)nakita n (chief complaint) Type 2 diabetes mellitus without complicationsHyp erlipidemiaThrom bocytopeniaAsthm a 7 Samuel Mosquera. [address], [place], [place], [address] , [place]. tel:[phone] Referring Provider: Demetri Baker, [address], [place], [place], [address]. tel:[phone] OFFICE/OUTPA TIENT VISIT, [facility], [address] [place], [address], [place] tel:[phone] [facility] HLP (chief complaint)itc kamryn (chief complaint)aleaxndre it pain1 (chief complaint)ins omnia1 (chief complaint) Pain in unspecified jointEczemaHyper lipidemiaInsomni a 7 Samuel Mosquera. [address], [place], [place], [address] , [place]. tel:[phone] Referring Provider: Griffin Garcia [address], [place], [place], [address]. tel:[phone] OFFICE/OUTPA TIENT VISIT, [facility], [address] [place] [place], [address], [place] tel:[phone] [facility] insomnia1 (chief complaint)HTN (chief complaint)DM (chief complaint)ast hma1 (chief complaint) Essential (primary) hypertensionType 2 diabetes mellitus without complicationsIns omniaOther emphysema 6 Samuel Mosquera. [address], [place], [place], [address] , [place]. [phone] Referring Provider: Griffin Garcia [address], [place], [place], [address]. tel:[phone] OFFICE/OUTPA TIENT VISIT, [facility], [address], [place], [place], [address], [place] tel:[phone] [facility] Medicine HTN (chief complaint)anay ma1 (chief complaint)DM (chief complaint) Essential (primary) hypertensionEdem aType 2 diabetes mellitus without complications 6 Samuel Mosquera. [address], [place], [place], [address] , [place]. tel:[phone] Referring Provider: Demetri Baker, Griffin Carnes [facility] A, [place], [place], [address]. tel:[phone] OFFICE/OUTPA TIENT VISIT, [facility], [address] [place], [address], [place] tel:[phone] [facility] Medicine DM1 (chief complaint)TIMBER GIRDLER D (chief complaint)HTN (chief complaint)ins omnia1 (chief complaint)leg swelling (chief complaint) InsomniaType 2 diabetes mellitus without complicationsEss ential (primary) hypertensionEdem a 6 Samuel Mosquera. [address], [place], [place], [address] , [place]. [phone] Referring Provider: Griffin Garcia [facility] [address], [place], [place], [address]. tel:[phone] OFFICE/OUTPA TIENT VISIT, [facility], [address] [place], [address], [place] tel:[phone] [facility] Medicine fatigue1 (chief complaint)bon e density (chief complaint)pal pitation1 (chief complaint) PalpitationsEnco unter for screening for osteoporosisSlee p disorderInsomnia 6 Samuel Mosquera. [address], [place], [place], [address] , [place]. tel:[phone] Referring Provider: Griffin Garcia, [place], [place], [address]. tel:[phone] OFFICE/OUTPA TIENT VISIT, [facility], [address], [place], [place], [address], [place] tel:[phone] [facility] DM (chief complaint)HTN (chief complaint)ank le swelling (chief complaint) Metabolic syndromeEssentia l (primary) hypertensionEdem aOther hammer toe(s) (acquired), left foot 6 Samuel Mosquera. [address], [place], [place], [address] , [place]. tel:[phone] Referring Provider: Demetri Baker, [address], [place], [place], [address]. tel:[phone] OFFICE/OUTPA TIENT VISIT, [facility], [address], [place], [place], [address], [place] tel:[phone] [facility] Medicine lupus (chief complaint)TIMBER GIRDLER D1 (chief complaint)HLP (chief complaint)HTN (chief complaint)ins omnia (chief complaint)DM (chief complaint) Type 2 diabetes mellitus without complicationsEss ential (primary) hypertensionOthe r local lupus erythematosusMix ed hyperlipidemia 6 Samuel Mosquera. [address], [place], [place], [address] , [place]. tel:[phone] Referring Provider: Demetri Baker, [address] [facility] [address], [place], [place], [address]. tel:[phone] OFFICE/OUTPA TIENT VISIT, [facility], [address], [place], [place], [address], [place] tel:[phone] [facility] Medicine cough1 (chief complaint) Acute bronchitis 5 Samuel Mosquera. [address], [place], [place], [address] , [place]. tel:[phone] Referring Provider: Demetri Baker, [address] [facility] A, [place], [place], [address]. tel:[phone] OFFICE/OUTPA TIENT VISIT, [facility], [address], [place], [place], [address], [place] tel:[phone] [facility] insomnia1 (chief complaint)TIMBER GIRDLER D1 (chief complaint)lup us1 (chief complaint)HTN 1 (chief complaint) Other emphysemaSystemi c lupus erythematosus, unspecifiedOther insomniaEssentia l (primary) hypertension 5 Samuel Mosquera. [address], [place], [place], [address] , [place]. [phone] Referring Provider: Griffin [address]ac[address], [place], [place], [address]. tel:[phone] OFFICE/OUTPA TIENT VISIT, [facility], [address], [place], [place], [address], [place] tel:[phone] [facility] HLP (chief complaint)HTN (chief complaint)TIMBER GIRDLER D (chief complaint)Men ingioma (chief complaint) Other and unspecified hyperlipidemiaUn specified essential hypertensionChro vidal airway obstruction, not elsewhere classifiedInsomn ia 5 Samuel Roblero [address], [address], [place], [place], [address] , [place]. tel:[phone] Referring Provider: Griffin Garcia [address], [place], [place], [address]. tel:[phone] OFFICE/OUTPA TIENT VISIT, [facility], [address], [place], [place], [address], [place] tel:[phone] [facility] meningioma (chief complaint)lup us (chief complaint)HTN (chief complaint) Dietary surveillance and counselingBenign neoplasm of cerebral meningesSystemic lupus erythematosusHyp ertension, Unspecified 5 Samuel Roblero [address], [address], [place], [place], [address] , [place]. [phone] Referring Provider: Griffin Garcia [address], [place], [place], [address]. tel:[phone] OFFICE/OUTPA TIENT VISIT, [facility], [address], [place], [place], [address], [place] tel:[phone] [facility] meningioma (chief complaint)RA (chief complaint)HTN (chief complaint) Dietary surveillance and counselingBenign neoplasm of cerebral meningesRheumato id ArthritisHyperte nsion, Unspecified 5 Samuel Mosquera. [address], [address], [place], [place], [address] , [place]. [phone] Referring Provider: Demetri Baker, [address], [place], [place], [address]. tel:[phone] OFFICE/OUTPA TIENT VISIT, [facility], [address], [place], [place], [address], [place] [phone] [facility] DM (chief complaint)vit butler D (chief complaint)TIMBER GIRDLER D (chief complaint)HTN (chief complaint)itc kamryn (chief complaint) Dietary surveillance and counselingDiabet es Mellitus Type 2, UncomplicatedCOP DHypertension, UnspecifiedUnspe cified vitamin d deficiency Jun- 5 Samuel Mosquera. [address], [address], [place], [place], [address] , [place]. tel:[phone] Referring Provider: Demetri Baker, [address], [place], [place], [address]. tel:[phone] OFFICE/OUTPA TIENT VISIT, [facility], [address] [place], [address], [place] [phone] [facility] leukocytosis (chief complaint)britney ast CA (chief complaint) Dietary surveillance and counselingLEUKOC YTOSIS NOSPneumoniaMali gnant Neoplasm, Breast 5 Samuel Mosquera. [address], [place], [place], [address] , [place]. [phone] Referring Provider: Demetri Baker, [address], [place], [place], [address]. tel:[phone] OFFICE/OUTPA TIENT VISIT, [facility], [address], [place], [place], [address], [place] [phone] [facility] DM (chief complaint)Pne umonia (chief complaint)hem aturia (chief complaint)HTN (chief complaint) Metabolic SyndromeHyperten jurgen, UnspecifiedPneum oniaDietary surveillance and counselingHEMATU XAVI NOS 5 Samuel Mosquera. [address], [address] [place] [place], [address] , [place]. tel:[phone] Referring Provider: Demetri Baker, [address], [place], [place], [address]. tel:[phone] OFFICE/OUTPA TIENT VISIT, [facility], [address] [place], [address], [place] tel:[phone] 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 [address], [place], [place], [address] , [place]. tel:[phone] Family History Family Member Type Diagnosis Age At Onset Father Problem (finding) Cancer, prostate Brother Problem (finding) Cancer, prostate Sister Problem (finding) liver cirrhosis Mother Problem (finding) old age, pacemaker Sister Problem (finding) Cancer - breast [place] Payers Payer name Insurance type Covered constitution party ID Authoriza tion(s) No Information Social History Type Description Quantity Date Captured Comments Alcohol Use Details No Caffeine Use Details Unknown Tobacco Use Status Never smoked tobacco 2023 Smoking Status Never smoker Sex Female Vital Signs Date / Time: Height Weight BMI Pulse Rate Blood Pressure Temperature Respiratory Rate Body Surface Area Head Circumference BMI percentile Pulse Ox Inhaled Ox 12:06 PM 64.00 in 203.20 lbs 34.8 8 kg/m eter (2) 58 /min 150/79 mm[Hg] 97.2 F 16 /min Chief Complaint And Reason For Visit From encounter dated '12/29/2023 12:06'. DM (chief complaint). Description: Pt has borderline DM Pt denies any polyuria polydipsia pt does not want oral hypoglycemic medications. renal (chief complaint). Description: Pt has chronic stable stage III renal disease pt has HTN Pt is on losartan/hctz Her bp is borderline high Pt denies any chest pain or headache bili1 (chief complaint). Description: Pt has borderline high bili. Pt denies any abd pain or jaundice. high D (chief complaint). Description: Pt has high vitamin D. Plan Of Treatment Date Type Action Status Goal Special diet education compl eted Goal Special diet education compl eted Goal Special diet education compl eted Goal Special diet education compl eted Goal Special diet education compl eted Goal Special diet education compl eted Referral Ordered: JULIO CESAR RODRIGUEZ -[facility] : Orthopaedic Surgery (related to Bilateral primary osteoarthritis of knee) ordered Referral Referred To: JULIO CESAR RODRIGUEZ [address], [place], [phone] Ordered: Referrals: [facility] Osteopathic Physicians : Orthopaedic Surgery. JULIO CESAR RODRIGUEZ. Evaluate and treat ordered Referral Ordered: US VENOUS DOPPLER BILATERAL ordered Referral Ordered: LUMBAR XRAY AP AND LAT ONLY ordered Referral Referred To: FRANSICO PALACIO [facility] [place], [address] Ordered: Referrals: FRANSICO PALACIO. Evaluate and treat ordered Referral Referred To: Aiyana STATON, Konrad Torres [address] [facility] Dept Of
[place] [address] [place] [address], [phone] Ordered: Referrals: Konrad Bronson MD. Evaluate and treat ordered Referral Ordered: Lai Thacker -[facility] : Surgery (related to Pain in right shoulder) ordered Referral Ordered: Ulises Hathaway -[facility] : Surgery : Vascular Surgery (related to Inconclusive mammogram) ordered Referral Referred To: Ulises Hathaway [address] [place], [phone] Ordered: Referrals: [facility] Phys[facility] : Surgery : Vascular Surgery. Ulises Hathaway. Evaluate and treat ordered Referral Referred To: Lai Thacker [place] [id number] [place] [address] [place] [phone] Ordered: Referrals: [facility]opathic Physicians : Surgery. Lai Thacker. Evaluate and treat ordered Referral Ordered: US GUIDANCE ordered Referral Ordered: MAMMOGRAM, ONE BREAST ordered Referral Ordered: COLONOSCOPY AND BIOPSY ordered Referral Ordered: MAMMOGRAM, SCREENING ordered Referral Ordered: DXA BONE DENSITY, AXIAL ordered Referral Ordered: Referral: Neurology. ordered Referral Ordered: Referral: Rheumatology. ordered Referral Ordered: MRI BRAIN W/O & W/DYE ordered Referral Ordered: Referral: Hematology/Oncology. ordered Referral Ordered: CHEST X-RAY PA/LAT TWO-VIEWS ordered Appointment Queen Vickers BOOKED History Of Present Illness Encounter Date Complaint History Of Prese nt Illness bili1 Pt has borderlin e high bili. Pt denies any abd pain or jaundice. high D Pt has high rylan min D. DM Pt has borderlin e DM Pt denies any polyuria polydipsia pt does not want oral hypoglycemic medications. renal Pt has chronic s table stage III renal disease pt has HTN Pt is on losartan/hctz Her bp is borderline high Pt denies any chest pain or headache physical Pt needs annual physical pt has chronic GERD and she is doing ok with pepcid Pt has chronic anxiety and insomnia Pt takes xanax PRn and doing ok Pt denies any depression or any suicidal or homicidal thought. Pt denies any crying spells. Pt has HTN Pt takes losartan/hctz and metoprolol and her bp is stable Pt has CAD. Pt sees cardiology Pt denies any chest pain or palpitation Pt also has HLP. Pt takes livalo. Pt denies any myalgia. Pt feels sob sometimes .Pt takes albuterol PRN. GERD1 Pt has chronic G erd pt states that she only takes pepcid PRN Pt states that she has GERD symptoms 2-3 per week Pt denies any abd pain, nausea, vomiting, weight loss. 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 Pt also has arthritis of shoulder and she had injection to shoulder area by ortho recently. Duplex venous doppler negative left leg Pt denies any leg swelling. Pt denies any injury Pt denies any knee redness warmth or swelling. Pt saw ortho and is doing PT now .Pt wants celebrex refilled . vertigo1 Pt c/o intermitt ent vertigo Pt denies any tinnitus, hearing loss, headache or syncope .Pt wants meclizine refilled. Pt denies any acute symptoms DM Pt has borderlin e DM pt denies any polyuria, ,polydipsia. pt denies any neuropathy renal disease1 pt has chronic s table stage III renal disease Pt has normal UO. 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 Pt also has arthritis of shoulder and she had injection to shoulder area by ortho recently. Duplex venous doppler negative left leg Pt denies any leg swelling. Pt denies any injury Pt denies any knee redness warmth or swelling. anemia1 Pt has mild norm ocytic anemia Pt denies any blood loss. Pt denies any dizziness or fatigue or sob leg pain1 Pt c/o left leg pain and left knee pain and also stiffness left calf area for 6 months ,Pt also notices left hip pain with radiating of pain down to left leg .Pt denies any loss of bowel or bladder control or saddle area paresthesia Pt c/o mild neuropathy symptoms both feet. pt notices swelling mild puffiness left anterior lower leg as well. Pt denies any sob or chest pain Pt flew from [place] back to [place] two weeks ago but her symptoms started 6 months ago. Pt went to see ortho while in [place] and she had left knee injection several months ago. HTN Pt has HTN pt ta kes metoprolol and also losartan/hctz and her bp is stable insomnia1 pt has insomnia and anxiety Pt takes xanax qhs and doing ok. Pt denies any depression or any suicidal or homicidal thought ,Pt denies any crying spells joint pain1 Pt has chronic k nee pain due to arthritis .Pt takes celebrex PRn and she needs reiflled GERD1 Pt has chronic G ERD, Pt takes pepcid PRn and doing ok. pt on average takes pepcid 2-3 times per week pt denies any abd pain or appetite loss or early satiety or nausea, vomiting physical Pt needs annual physical pt has chronic GERD and she is doing ok with pepcid Pt has chronic anxiety and insomnia Pt takes xanax PRn and doing ok Pt denies any depression or any suicidal or homicidal thought. Pt denies any crying spells. Pt has HTN Pt takes losartan/hctz and metoprolol and her bp is stable Pt has CAD. Pt sees cardiology Pt denies any chest pain or palpitation Pt also has HLP. Pt takes livalo. Pt denies any myalgia. Pt has chronic sinus allergy and frequent running nose and sinus congestion. Pt failed flonase and ipratropium nasal spray and anti histamine. Pt denies any nasal bleeding. HTN Pt has HTN pt ta kes losartan/hctz and metoprolol and her bp is stable .Pt needs losartan refilled. Pt denies any dizziness tongue Pt has some mild tongue bruising and she discussed with cardiology and plavix was stopped recently and the tongue discoloration resolved. Pt denies any other bruising pain Pt has chronic j oint pain due to arthritis. Pt wants celebrex refilled. Pt only takes it PRn and she takes it rarely. Pt does have GERD. Pt takes pepcid and doing ok tongue1 Pt started plavi x about two months ago and she was started on plavix and she noticed some dark discoloration around her tongue since 4 weeks ago Pt denies any bleeding or bruising Pt also has some mild headache and dizziness as well. Pt also has some blurred vision for several weeks. dizziness1 Pt states that s he feels slightly dizziness and her bp is around 111/70 at home and she thinks she is dizzy due to low BP. Pt denies any chest pain tinea rash1 Pt has fungal ra sh under both breast and she has some vaginal itching sometimes and she wants nystatin and lotrisone refilled. Pt denies any active symptoms CAD Pt recently was admitted to [facility] due to NSTEMI. pt underwent cardiac cath which showed mild obstructive disease without necessary intervention Pt is being medically managed. She is off irbesartan/hctz and acebutolol ad she is on metoprolol, ASA, plavix, losartan and hctz now. Pt was started on imdur at [facility] but her currently labelling machine operator took her off imdur. Pt denies any chest pain, Pt denies any sob. Pt states that her bp is around 130/70. anxiety1 Pt has been havi ng severe anxiety. Pt denies any depression or any suicidal or homicidal thought. Pt denies any crying spells. Pt takes xanax qhs only but her labelling machine operator recommended her to take xanax BID instead of qhs due to her anxiety which may cause worsening chest pain. Pt denies any depression or any suicidal or homicidal thought. Pt denies any crying spells COVID-19 Pt was tested po sitive for COVID last Monday, which is 7 days ago. Pt started to have fever, chill, cough, with green phlegm, very mild sob, sore throat and sinus congestion, achy, etc. Pt has mild non-bloody diarrhea. pt is fully vaccinated with one J & J vaccine and Moderna booster. Pt states that the highest fever was 100.4. However, she has not had any fever for two days. Pt has been taking tylenol intermittently for her symptoms. Pt denies any hemoptysis joint pain1 Pt has chronic k nee and hip pain due to arthritis. Pt takes celebrex PRN only. Pt needs it refilled. Pt denies any joint swelling. Pt denies any worsening pain HLP Pt takes livalo and her lipid profile is ok PT denies any myalgia DM Pt has DM Pt has been off any DM medication for a while. Pt denies any polyuria polydipsia pt denies any neuropathy renal1 Pt has chronic s tage III renal disease, which has been stable .Pt has normal UO b12 Pt has low B12 . Pt does feel fatigue edema1 Pt has persisten t LE edema. Pt óscar any sob or chest pain. Pt states that she notices the worsening LE edema since starting norvasc. Pt takes lasix 2-3 per week for LE edema. HTN Pt has HTN. Pt t akes irbesartan/hctz, acebutolol and norvasc and her bp is around 125/60 at home. physical Pt needs annual physical. Pt has mild CAD. Pt sees cardiology. Pt denies any chest pain pt has HTn. Pt recently saw labelling machine operator and she is off spironolactone and she is on lasix currently. Pt also restarted pitavastatin as well. Pt also takes norvasc and irbesartan/hctz. Her bp is stable. Pt denies any sob. Pt has chronic GERD. Pt takes pepcid and doing ok. Pt also has knee pain due to arthritis. Pt takes celebrex PRn only and doing ok. pt has chronic anxiety and insomnia. Pt takes xanax qhs PRn and doing ok. Pt has chronic sinus allergy and running nose and she failed flonase. Pt denies any other complaints insomnia1 Pt has chronic i nsomnia Pt takes xanax qhs and doing well. Pt needs refill HTN Pt has HTn Pt ta kes acebutolol, spironolactone, irbesartan/hctz ad norvasc and her bp is much better at home. Pt states that her bp is around 130/70 Pt feels much better chest pain1 Pt denies any re current chest pain Pt sees cardiology shoudler pain1 Pt has bilateral shoulder pain, worse on left side Pt saw ortho and she was told that she has arthritis and tendinosis and she received injection on both shoulder which really helped her pain. Pt denies any shoulder swelling, deformity or redness or warmth chest pain1 Pt c/o left mids ternal chest pain, which is dull and sharp in nature and also left shoulder pain for 2-3 weeks. PT denies any injury PT denies any exertional chest pain, PT not sure if the pain is from left shoulder radiating to her left chest or other way around. Pt does have diffuse left shoulder pain with decrease ROM and stiffness, especially when she tries to lift her left shoulder. Pt denies any GERD. ,Pt denies any acute pain ,Pt states that left side of chest wall generally hurts along with left shoulder. PT denies any neck pain or any radiculopathy. Pt denies any left arm weakness. Pt does have history of CAD and she sees cardiology. Pt had negative stress test two years ago. Pt denies any sob. Pt denies any GERD HTN Pt has HTN Pt ta kes irbesartan/hctz and norvasc and acebutolol and her bp is high today. PT denies any headache. GERD1 Pt doing ok with pepcid Pt denies any GERD or abd pain HTN Pt has HTN. Pt t akes irbesartan/hctz and norvasc and her bp is stable. Here labelling machine operator started her on norvasc recently Pt denies any swelling insomnia1 Pt has insomnia and she takes xanax qhs PRn and doing ok Pt needs refill mammo Pt had diagnosti c mammo with ultrasound for right breast mass which was benign. Pt denies any palpable breast mass or nodule or pain or discoloration Hypertension Additional infor merlene: Patient has been taking irbesartan hydrochlorothiazide her blood pressure is high. Patient states that her blood pressure was over 200-day before and the was 150/100 yesterday. He denies any chest p sob Patient has occa sional shortness of breath. Patient denies any hemoptysis. Patient denies any chest pain. Patient takes albuterol as needed. Patient state that allergies she uses albuterol once or twice per months. Patient denies any exertional shortness of breath. HLP 1 Patient has mild hyperlipidemia. Patient stopping statin at home. Patient does not want any statin at this point. Insomnia The patient pres ents with sleep problems. The patient does not have: use of alcohol.Additional information: Patient has been insomnia. Patient take Xanax nightly as needed to be okay. Patient denies any snoring. DM Patient has bord rakesh diabetes. Patient stopped taking Onglyza her own. Her sugar is only 103 her A1c is essentially normal. Patient denies any neuropathy. renal function1 Patient has mild borderline stage III renal disease. Patient with normal urine output. HTN Pt takes acebuto lol and losartan/hctz. Pt states that losartan/hctz cause her to have bloating and upset stomach. Pt states that she tried without losartan./hctz and her stomach is ok on days without losartan/hctz. Pt does have CAD and HTN. Pt has trace LE edema. Pt sees cardiology Pt denies any chest pain. DM Pt stopped takin g onglyza completely on her own Pt denies any polyuria, polydipsia. Pt does not check her glucose. Pt denies any neuropathy GERD1 Pt has GERD. Pt takes Pepcid and doing ok. Pt denies any abd pain or nausea. insomnia1 Pt has chronic i nsomnia Pt takes xanax qhs PRn and doing ok Pt denies any depression or any suicidal thought Pt denies any crying spells. sinus allergy1 Pt has sinus all ergy. Pt takes xyzal and doing ok. Pt needs refill. HLP pt has HLP pt st opped taking livalo. Pt denies any myalgia GERD1 Pt c/o stomach b urning with GERD Pt takes pepcid and doing ok Pt denies any abd pain or GERD Pt denies any nausea, vomiting insomnia1 Pt has insomnia Pt takes xanax qhs PRN and doing ok Pt denies any snoring or any trouble with breathing renal Pt no longer ane toña and her renal function is ok. 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 Patient denies any snoring. Patient denies any trouble with breathing at night. Patient takes Xanax nightly and doing okay. Patient denies any suicidal homicidal thought. Patient denies any depression. GERD` Patient complain ing of heartburn symptom for the past 4 weeks. Patient denies abdominal pain. Patient denies any nausea. The patient denies any vomiting. Patient denies any blood in stool. Patient does take frequent Tums. Patient had a colonoscopy last year which showed hemorrhoids and diverticulosis. Patient supposed to do a barium study but she never did. joint pain1 Patient has no s pecific shoulder and knee pain. Patient has arthritis. Patient deferred x-ray. Patient denies any injury. Patient takes Celebrex as needed and doing okay. Patient denies any worsening pain. Patient denies any redness or swelling. sinus Pt c/o sinus nakita n, purulent sinus drainage, mild sore throat, ear pain, productive coughing for 3 days. Pt denies any fever, chill, sick contact. Pt denies any headache insomnia1 Pt acuna chronic in somnia Pt has mild anxiety at night Pt takes xanax qhs and doing ok Pt denies any depression or any suicidal or homicidal thought HLP Pt has HLP. Pt t bob livalo. Pt denies any myalgia Pt unable to tolerate other statin due to myalgia. Her lipid profile is ok HTN Pt has HTN. Pt t bob acebutolol and losartan/hctz. Her BP is borderline. pt denies any chest pain or headache shoulder pain1 Pt c/o right loyda ulder pain for several months. Pt denies any injury Pt notices weakness right shoulder with some pain Pt denies any radiculopathy. Pt denies any neck pain DM Pt has DM. Pt ta kes onglyza and doing ok. Her A1c is stable Pt denies any neuropathy HTN Pt is back on lo sartan/,hctz and bp ok. low renal1 Pt has borderlin e low renal function. Pt has normal UO b12 Pt has low b12. Pt denies any fatigue skin tag1 Pt has multiple skin tag around her neck. Pt wants it removed. Pt denies any bleeding Pt notices some irritation sometimes. mammo Pt has abnormal mammo. Pt denies any breast issue Pt needs to do diagnostic mammo with ultrasound .Pt denies any nipple discharge or breast nodule insomnia1 Pt has chronic i nsomnia. Pt takes xanax qhs PRN and doing ok Pt denies any snoring or any trouble with breathing at night. Pt needs refill knee pain1 Pt has knee and shoulder pain. Pt takes celebrex PRn. Pt denies any injury. Pt states that she has arthritis. Pt denies any worsening pain. Pt denies any swelling or redness or the joint. Pt takes celebrex very rarely SOB1 Pt feels sob int ermittently. Pt had benign chest x ray. Pt never smoked. Pt is not using pulmicort anymore. Pt uses albuterol PRN and working ok. Pt states that she uses ventolin 1-2 per week and she is ok with that . Pt does not want to use pulmicort anymore. Pt does not cough Pt denies any acute sob neck pain1 Pt c/o sudden on set of right side neck pain for 8 days Pt tried to turn her neck and she felt sudden acute sharp pain on right side of neck. Pt states that the pain is sharp and also involve right ear and right side of the head. Pt denies any vision change. Pt denies any nausea, vomiting Pt denies any vision change Pt denies any speech problem. Pt denies any facial sensory loss or any facial droop. Pt denies any other neurologic deficit. Pt denies any mental status change or headache. Pt went to [facility] and had benign Cervical Ct which showed DDD and normal head CT Pt states that she was given some tylenol codeine which did not help and just put her to sleep. pt states that celebrex helped. her ESR is normal also. .Pt denies any injury or radiculopathy or any extremity numbness or weakness. colon polyp Pt has colon jorge yp and she had colonoscopy 4 weeks ago but was not completed due to poor prep Pt supposes to repeat again. Pt denies any GI bleeding PHysical Pt needs annual physical. pt has DM. Pt takes onglyza and her Bg is around 120s. Pt denies any polyuria, polydipsia. Pt denies any neuropathy symptoms. Pt has chronic insomnia Pt takes xanax qhs PRN and doing ok. Pt denies any depression or any suicidal or homicidal thought. Pt has asthma. Pt uses Pulmicort and ventolin PRN. Pt rarely uses ventolin. Pt has HTN. Pt takes losartan/hctz Her BP is stable. Pt has history of colon polyp but colonoscopy 2011 was ok. SHe denies any GI issue insomnia1 Pt has insomnia pt takes xanax prn qhs and doing ok Pt denies any snoring DM. Pt takes ongylza and she states that her BG is around 110s. Pt denies any polyuria, polydipsia. Pt neil any hypoglycemia. Pt denies any numbness. HTN Pt takes losarta n,hctz and her bp is stable. Pt denies any chest pain or headache vitamin d Pt has low vitam in d. Pt takes calcium and D insomnia1 Pt has insomnia and anxiety. Pt takes xanax and doing ok. Pt denies any snoring or any trouble with breathing at night. DM Pt takes onglyza only and her BG is around 110 and her A1c is borderline. Pt denies any polyuria, polydipsia. Pt denies any vision change or neuropathy HTN Pt atkes losarta n,hctz and her BP is stalbe platelet Pt had history o f low platelet. Pt denies any bleeding, Her repeat platelet is ok. Pt denies any bruising joint pain1 Pt has knee pain due to arthritis. Pt takes celebrex which working ok. Pt only takes 2-3 per week sinus allergy Pt has some sinu s allergy symptoms with frequent sinus clear drainage. Pt denies any sore throat HLP Pt has HLP Pt co uld not tolerate crestor either. Pt seeing cardiology and she is back on livalo 40 mg again. Pt has history of CAD No stent. Pt denies any chset pain. Pt sees cardiology DM Pt states that h er BG is around 140s. Pt could not tolerate metformin or amaryl. Pt states that she has severe diarrhea. Pt denies any polyuria, polypdisia platelet Pt has low plate let and b12. Pt does not have any bleeding or bruising pain Pt takes celebre x on average every 3-4 days due to arthritis pain. Pt denies any stomach issue HLP Pt has HLP Pt wa s taking livalo but her insurance does not pay for it. Pt tried pravastatin and zocor and lovastatin but she could not tolerate it in the past due to myalgia. itching Pt has some mild eczema and itching sometimes. Pt uses clotrimazle and betamethasone PRN and doing ok Pt wants refill Pt denies any acute symptoms jonit pain1 Pt has some join t pain due to arthritis. Pt has some knee pain here and there pt denies any injury. Pt wants to try celebrex Pt failed motrin and also mobic. Pt only takes PRN celebrex which worked in the past insomnia1 Pt has insomnia Pt takes xanax qhs PRN and doing ok Pt denies any snoring HTN Pt takes losarta n. hctz and acetbulol and her BP is ok. Pt does not have any leg swelling DM Pt has DM. Pt ta ke amaryl and doing ok. Her BG is around 120. Pt denies any hypogylcemia asthma1 Pt has mild asth ma. Pt doing ok with pulmocort and venotlin. Pt only uses venotlin very rarely. No aucte SOB insomnia1 Pt has chronic a nxiety and insomnia pt takes xanax qhs PRN and doing ok. Pt denie any depressin or any suicidal thought. Pt denie any crying spells DM pt takes amaryl and her bP is around 110 on average Pt deniesany hypoglycemia HTN Pt takes acebuto lol and losartan. Her BP is borderline. Pt denies any chest pain or headache edema1 Pt states that t he LE swelling much better without norvasc. Pt denies any SOB or chest pain COPD Pt has mild COPD . Pt uses flovent and ventolin. Pt rarely needs to use ventolin. Pt denies any acute SOB HTN Pt has HTN. Pt t akes acetabulol and also norvasc Her BP is stable. insomnia1 Pt has insomnia and anxiety Pt takes xanax qhs PRN and doing ok Pt denies any depression or any suicidal thought. Pt denies any cyring spells leg swelling Pt notices mild bilateral low leg swelling recently Pt denies any soB or chest pain DM1 Pt has borderine DM. Pt unable to tolerate metformin due to diarrhea. Pt has not been checking her BG fatigue1 Pt has chronic f atigue and she snores at night. Pt denies trouble with breathing at night. Pt takes xanax at night for insomnia bone density Pt just had bone density done which is normal. Pt denies any history of spontaneous fx palpitation1 Pt has palpitati on. Pt denies any chest pain . Pt is back on acebutolol now per cardiology and is off toprol. Pt just had holter monitor done. Pt states that palpitation better now with acebutolol. HTN Pt states that t oprol is not strong enough. Pt feels palpitation with it. Pt wants to go back to acebatulol. Pt takes norvasc. Pt denies any chest pain. DM Pt is borderline diabetic. Pt statse that she could not tolerate metfomrin. It gave her abd cramp and diarrhea. Pt stopped it after two weeks. Pt denies any polyuria, polydipsia Pt is trying low carb and low sweet diet now ankle swelling Location: ankle. Pertinent negatives include fever and rash. Additional information: Pt c/o intermittent foot swelling both side, especailly after standing on her feet for long time for several months. Pt denies any foot numnbess or tingling. Pt denies any sOB or chest pain. Pt denies any calf pain Pt denies any recent travel. DM Pt has borderlin e DM. pt denies any polyuria, polydispsia. pt denies any numnbess insomnia The patient pres ents for insomnia. Relevant history: a BMI of 36.82. The patient does not have: use of alcohol. Additional information: Pt takes xanax qhs pRN and doing ok. Pt denie any snoring. HTN Pt has been taki ng acebutolol and norvasc. Her BP is ok. Her insuance no longer covers acebutolol. Her BP is stable HLP Pt is takign pit avastatin. Her lipid profile is ok. Pt denies any myalgia COPD1 Pt is using flov ent and also albuterol. Pt denie any acute SOB. Pt uses albuterol 1-2 per week. Pt denies any worsening breathing lupus Risk factors inc lude female gender. Additional information: Pt has ? lupus. Pt has appointment with rheumatology next week. Pt denies any joint pain or rash cough1 Pt c/o coughing up green phleam for two weeks. pt feels sob. no chest pain. Pt has been taking OTC meds Pt has been using inhlaer more often. Pt denies any sore throat or sinus. No recent travel insomnia1 Pt has insomnia and she takes xanax qhs PRn and working ok. Pt denies any snoring or any trouble with breathing at night COPD1 PT insurance rooney s not cover qvar anymore and needs to switch to flovent. Pt doing ok. Pt denies any sob. Pt uses albuterol maybe 1-2 per week. Pt denies any acute symptoms lupus1 Her rheumatology appointment was canceled Pt never seen the rheumatology. Pt has ? lupus. Pt denies any rash or joint pain HTN1 Pt has mild CAD and HTN. Pt takes acetabulol and also norvasc Pt denies any chest pain. Meningioma Pt has appointme nt with Dr. Anderson next month. Pt denies any headache HLP Pt takes pravast atin for HLP. Pt denie sany myalgia HTN Pt takes norvasc and acebutolol and her BP is ok. Pt denies any chest pain or hedache COPD Pt uses qvar and proair PRN. Pt uses proair 2-3 per week. Pt denies any coughing Instructions Date Instruction Additional Infor merlene Special diet education Related t o Body mass index (BMI) 35.0-35.9, adult Follow a low sodium diet. Relate d to Essential (primary) hypertension Special diet education Related t o Body mass index (BMI) 36.0-36.9, adult Special diet education Related t o Body mass index (BMI) 36.0-36.9, adult Increase physical activity. Rela ramez to Type 2 diabetes mellitus without complications Special diet education Related t o Body mass index (BMI) 36.0-36.9, adult Increase physical activity Relat ed to Inconclusive mammogram Weight management Related to Inc onclusive mammogram Weight management Related to Tor ticollis Special diet education Related t o Body mass index (BMI) 35.0-35.9, adult Increase physical activity Relat ed to Encounter for general adult medical exam w abnormal findings Weight management Related to Enc ounter for general adult medical exam w abnormal findings Special diet education Related t o Body mass index (BMI) 36.0-36.9, adult Prescribed Diet Educ ation/Lifestyle Education Regarding Diet Related to Dietary Surveillance and Counseling Increase physical activity Relat ed to Insomnia Prescribed Activity and Exercise Education Related to Dietary Surveillance and Counseling Weight management Related to Ins omnia Prescribed Activity and Exercise Education Related to Dietary Surveillance and Counseling Prescribed Diet Educ ation/Lifestyle Education Regarding Diet Related to Dietary Surveillance and Counseling Check blood sugar twice a day. R elated to Type 2 diabetes mellitus without complications Increase physical activity. Rela ramez to Type 2 diabetes mellitus without complications Prescribed Activity and Exercise Education Related to Dietary Surveillance and Counseling Prescribed Diet Educ ation/Lifestyle Education Regarding Diet Related to Dietary Surveillance and Counseling Prescribed Diet Educ ation/Lifestyle Education Regarding Diet Related to Dietary Surveillance and Counseling Prescribed Activity and Exercise Education Related to Dietary Surveillance and Counseling Prescribed Activity and Exercise Education Related to Dietary Surveillance and Counseling Prescribed Diet Educ ation/Lifestyle Education Regarding Diet Related to Dietary Surveillance and Counseling Prescribed Activity and Exercise Education Related to Dietary Surveillance and Counseling Prescribed Diet Educ ation/Lifestyle Education Regarding Diet Related to Dietary Surveillance and Counseling Prescribed Activity and Exercise Education Related to Dietary Surveillance and Counseling Prescribed Diet Educ ation/Lifestyle Education Regarding Diet Related to Dietary Surveillance and Counseling Prescribed Activity and Exercise Education Related to Dietary Surveillance and Counseling Prescribed Diet Educ ation/Lifestyle Education Regarding Diet Related to Dietary Surveillance and Counseling Prescribed Activity and Exercise Education Related to Dietary Surveillance and Counseling Prescribed Diet Educ ation/Lifestyle Education Regarding Diet Related to Dietary Surveillance and Counseling Prescribed Activity and Exercise Education Related to Dietary Surveillance and Counseling Prescribed Diet Educ ation/Lifestyle Education Regarding Diet Related to Dietary Surveillance and Counseling Decrease caloric intake Related to Dietary surveillance counseling Physical activity counseling Rel ated to Dietary surveillance counseling Decrease caloric intake Related to Dietary surveillance counseling Physical activity counseling Rel ated to Dietary surveillance counseling Decrease caloric intake Related to Dietary surveillance counseling Physical activity counseling Rel ated to Dietary surveillance counseling Physical activity counseling Rel ated to Dietary surveillance counseling Decrease caloric intake Related to Dietary surveillance counseling Decrease caloric intake Related to Dietary surveillance counseling Physical activity counseling Rel ated to Dietary surveillance counseling Decrease caloric intake Related to Dietary surveillance counseling Physical activity counseling Rel ated to Dietary surveillance counseling Assessments Type Assessment Date assessment Hypertensive kidney disease assessment Type 2 diabetes mellitus without complications assessment Disorder of bilirubin metabolism , unspecified assessment Other specified disorder of bone density Mental Status Date Cognitive Assessment Orientation - [place] ed to time, place, person, situation.
--- OUTSIDE RECORDS SUMMARY | 2024-05-29 18:47 | XMS_ITS | Clinical Summary ---
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 20 tablet 10/30/2017 Active Social History Tobacco Use Types Packs/Day Years Used Date Smoking Tobacco: Never Smokeless Tobacco: Never Alcohol Use Standard Drinks/Week Comments No 0 (1 standard drink = 0.6 oz pur e alcohol) Comments No Sex and Gender Information Value Date Recorded Sex Assigned at Not on file Legal Sex Female 6:17 PM CDT Gender Identity Not on file Sexual Orientation Not on file Last Filed Vital Signs Vital Sign Reading Time Taken Comments Blood Pressure 130/57 10/30/2017 2:41 PM CDT Pulse 54 10/30/2017 2:41 PM CDT Temperature 36.7 C (98.1 F) 10/30/2017 11:39 AM CDT Respiratory Rate 16 10/30/2017 12:51 PM CDT Oxygen Saturation 99% 10/30/2017 2:41 PM CDT Inhaled Oxygen Concentration - - Weight 94.8 kg (209 lb) 10/30/2017 11:39 AM CDT Height 162.6 cm (5' 4 ) 10/30/2017 11:39 AM CDT Body Mass Index 35.87 10/30/2017 11:39 AM CDT Plan of Treatment Health Maintenance Due Date Last Done Comments DTaP, Tdap and Td Vaccines ( 1 - Tdap) 1955 Zoster Vaccines (1 of 2) 1986 Annual Medicare Wellness Visit 2001 Pneumococcal Vaccine: 65+ Ye ars (1 of 1 - PCV) 2001 RSV Immunization or 60+ Years (1 - 1-dose 75+ series) 2011 COVID-19 Vaccine (1 - 2023-2 5 season) 2023 Influenza Adult (#1) 2024 Meningococcal B Vaccine Aged Out No l onger eligible based on patient's age to complete this topic Meningococcal Vaccine Aged Out No jovany filomena eligible based on patient's age to complete this topic RSV Immunizations Under 20 Months Aged Out No longer eligible based on patient's age to complete this topic Insurance [facility]ICARE [facility] Care Teams Solar Applications Development Engineer Relationship Specialty Start Date End Date Demetri Baker MD PCP - General 05/16/14
--- OUTSIDE RECORDS SUMMARY | 2024-05-29 18:47 | XMS_ITS | Clinical Summary ---
Author Organization [facility] [address] Address [address] [place] [address] Care Team Providers Care Long Term Acute Care Registered Nurse Name Role Phone Demetri Baker MD Primary Care Provider [phone] Mayito Tucker DPM Unavailable [phone] Allergies Active Allergy Reactions Criticality Noted Date Comments Penicillins Rash,Hives Medium 03/31/2014 Pravastatin Unknown Prochlorperazine Unknown Medications ALPRAZolam (XANAX) 0.5 mg tablet take 1 tablet (0.5MG) by oral route 2 times every day 0 08/08/19 13 Active Additional Information Patient taking differently:0.5 mgoral Nightly, Reported on 09/30/2022 albuterol HFA (PROVENTIL HFA,VENTOLIN HFA) 90 mcg/actuation inhaler inhale 2 puff by inhalation route every 4 - 6 hours as needed 0 Inhaler 0 02/07/20 14 Active meclizine (ANTIVERT) 25 mg tablet take 1 tablet by oral route 3 times every day as needed 0 0 02/07/20 14 Active aspirin 81 mg tablet Take 1 tablet (81 mg total) by mouth daily Active famotidine (PEPCID) 20 mg tablet Take 1 tablet (20 mg total) by mouth daily Active acetaminophen (TYLENOL) 500 mg tablet Take 1 tablet (500 mg total) by mouth every 6 (six) hours as needed for pain Active levocetirizine (XYZAL) 5 mg tablet Take 1 tablet (5 mg total) by mouth daily as needed for allergies Active cholecalciferol (VITAMIN D-3) 5,000 unit capsule Take 1 capsule (5,000 Units total) by mouth daily Active losartan-hydroC HLOROthiazide (HYZAAR) 50-12.5 mg per tablet Take 1 tablet by mouth daily 11/19/19 22 Active nystatin cream APPLY TOPICALLY TO THE AFFECTED AREA TWICE DAILY 11/17/19 22 Active nitroglycerin (NITROSTAT) 0.4 mg SL tabletIndicatio ns:Chest Pain Place 1 tablet (0.4 mg total) under the tongue every 5 (five) minutes as needed for chest pain for up to 25 doses 25 tablet 10/01/19 23 Active isosorbide mononitrate ER (IMDUR) 30 mg 24 hr tabletIndicatio ns: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) TAKE 1 TABLET(30 MG) BY MOUTH DAILY 90 tablet 3 09/25/19 24 Active Livalo 4 mg tabletIndicatio ns: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) TAKE 1 TABLET(4 MG) BY MOUTH EVERY NIGHT 30 tablet 11 10/23/19 24 Active metoprolol tartrate (LOPRESSOR) 25 mg immediate release tabletIndicatio ns: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) 08/29/2017 Hyperlipidemia associated with type 2 diabetes m ellitus 08/29/2017 Hypertension associated with diabetes 08/29/2017 Statin intolerance 01/16/2017 Chest pain 02/06/2014 Overview (07/07/2016): Other chronic pain Snoring 02/06/2014 Overview (07/07/2016): Snoring Shortness of breath 02/06/2014 Overview (07/07/2016): Dyspnea Dyslipidemia 02/06/2014 Overview (07/07/2016): Dyslipidemia Asthma 08/17/2013 Overview (07/06/2016): Asthma Palpitations 08/17/2013 Overview (07/08/2016): Heart palpitations Osteoarthritis 08/17/2013 Overview (07/08/2016): Osteoarthritis Hypertension 08/17/2013 Overview (07/08/2016): Hypertension Anxiety 08/17/2013 Overview (07/08/2016): Anxiety Diabetes mellitus 08/17/2013 Overview (07/08/2016): Diabetes mellitus 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 Overview (07/08/2016): Hyperlipidemia type II Malignant neoplasm of female breast Overview (08/27/2021): Cancer, breast GERD (gastroesophageal reflux disease) Surgical History Surgery Date Site/Laterality Comments OTHER SURGICAL HISTORY 04/03/2007 - 04/02/2008 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: Radiation therapy BREAST SURGERY CARDIAC CATHETERIZATION Medical History Medical History Date Comments Hx Other Medical 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 Malignant neoplasm of female breast (HCC) Cancer, breast Hx Other Medical cataracts Hx Other Medical chronic bronchi tis Hypertension Hypertension Asthma Asthma Hx Other Medical bells palsy Diabetes mellitus (HCC) Diabetes Hx Other Medical 2006 left breast lum pectomy Hx Other Medical 2010 hammer toe left ft Hx Other Medical 2011 neck cyst remov ed Hx Other Medical GERD, dentures, allergic rhinitis, sinusitis, diab; Comments: MAF 02/06/2014 - GERD (gastroesophageal reflux disease) Family History Medical History Relation Name Comments Prostate cancer Father Cancer, pros montilla; Relation Name Status Comments Father Social History Tobacco Use Types Packs/Day Years Used Date Smoking Tobacco: Never Smokeless Tobacco: Never Tobacco Cessation:Counseling Given: Not Answered Alcohol Use Standard Drinks/Week Comments No 0 (1 standard drink = 0.6 oz pur e alcohol) AUDIT-C Answer Date Recorded Q1: How often do you have a drink containing alc ohol? Never 08/27/2021 Average Number of Drinks Not on file 022 Q3: How often do you have si x or more drinks on one occasion? 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 Gender Identity Not on file Sexual Orientation Not on file Obstetrics History Last Filed Vital Signs Vital Sign Reading Time Taken Comments Blood Pressure 146/70 12/15/2023 3:11 PM CDT Pulse 56 12/15/2023 3:11 PM CDT Temperature 36.7 C (98.1 F) 08/28/2021 11:43 AM CDT Respiratory Rate 16 08/28/2021 11:43 AM CDT Oxygen Saturation 99% 12/15/2023 3:11 PM CDT Inhaled Oxygen Concentration - - Weight 89.8 kg (198 lb) 12/15/2023 3:11 PM CDT Height 162.6 cm (5' 4 ) 12/15/2023 3:11 PM CDT Body Mass Index 33.99 12/15/2023 3:11 PM CDT Plan of Treatment Health Maintenance Due Date Last Done Comments Albumin Creatinine Ratio, Urine 1936 Depression Screening 1936 Dilated Eye Exam 1936 Foot Exam 1936 DTaP/Tdap/Td Vaccine (1 - Tdap) 1947 Hepatitis B Screening 1954 Pneumococcal vaccine 65+ (1 of 2 - PCV) 1955 Zoster Vaccine (1 of 2) 1986 Well Visit 65+ 2001 Hemoglobin A1C 02/27/2022 08/27/2021 Fall Risk Assessment 08/28/2022 08/28/2021 eGFR 08/28/2022 08/28/2021, 08/02, 08/26/2021, Additional history exists Lipid Panel 09/21/2023 09/20/2022, 09/02, 08/27/2021, Additional history exists Covid-19 Vaccine (3 - 2023-2 5 season) 2023 05/31/2021, 07/07/2020 Influenza Vaccine (#1) 2023 07/16/2014 Medical Devices Implanted Type Area Heating Equipment Installer Device Identifier Shelf Expiration Date Model / Serial / Lot Tenfuse Pip Allograft Non-Acid Washed Implanted:Qty: 1 on 04/17/2020 by Mayito Tucker DPM at [facility] Graft Left: Foot [email or web address] [id number] 02/15/2021 [id number] / / [id number] Angio-Seal Evolution 6fr Vascular Closure [id number] - [id number] Implanted:Qty: 1 on 08/27/2021 by Brinda Martinez MD at [facility] [employer] 04/02/2022 [id number] / / [id number] Procedures Procedure Name Priority Date/Time Associated Diagnosis Comments LIPID PANEL Routine 09/20/2022 10:59 AM CDT EGFR Routine 08/28/2021 5:22 AM CDT HEMOGLOBIN A1C Routine 08/27/2021 6:57 AM CDT from Last 3 Months or Most Recently Relevant to Health Maintenance Results * Lipid panel (09/20/2022 10:59 AM CDT) Blood us Historical Provider LAB BLOOD ORDERABLES Paty l Result * eGFR (08/28/2021 5:22 AM CDT) eGFR 44 mL/min/1. 73 m2 [facility] Comment: Interpretive Data Reference Interval Normal >/= 90 mL/min/1.73m2 Mildly decreased* 60 - 89 mL/min/1.73m2 Mildly to moderately decreased 45 - 59 mL/min/1.73m2 Moderately to severely decreased 30 - 44 mL/min/1.73m2 Severely decreased 15 - 29 mL/min/1.73m2 Kidney Failure < 15 mL/min/1.73m2 *Relative to young adult level Estimated glomerular filtration rate is determined by the 2020 CKD-EPI equation recommended by the National Kidney Foundation (A Unifying Approach to GFR Estimation: Recommendations of the NKF-ASK Task Force on Reassessing the Inclusion of Race in Diagnosing Kidney Disease, JASN 2020). The CKD-EPI equation should not be used for patients with unstable renal function and has not been validated in children and those over 70. Current interpretive data was last reviewed 2021. Testing performed by: [address] [address] Blood 08/28/2021 5:22 AM CDT 08/28/2021 5:32 AM CDT us Pretty Pierson NP LAB BLOOD ORDERABLES Final Result [facility] [address] [facility] [place] [address] * (ABNORMAL) Hemoglobin A1c (08/27/2021 6:57 AM CDT) Hgb A1C 6.5(H) 4.0 - 5.6 % [facility] Comment:Testing performed by : [address] [address] Estimated Average Glucose 140 mg/dL [facility] Comment: The ADA recommends reporting an estimated Average Glucose (eAG) with all Hemoglobin A1c results using the equation derived from a study of 507 normal and diabetic adults. Minority populations were underrepresented and children were not included. (Diabetes Care 31:8290-8829, 2008). The eAG is not equivalent to a fasting glucose. Testing performed by: [facility], [address] [place] [address], [place]., [address] Blood 08/27/2021 6:57 AM CDT 08/27/2021 7:01 AM CDT us Kelly Esquivel MD LAB BLOOD ORDERABLES Final Res ult [facility] [address] [facility] Department [place] [address] from Last 3 Months or Most Recently Relevant to Health Maintenance Insurance MEDICARE [employer] [facility] MDCR HMO REF MEDICARE SOL[employer]IONS Advance Directives For more information, please contact: [phone] * LIMITED - No CPR (Latest Code Status on File) Date Activated Date Inactivated Comments 08/27/2021 3:46 PM 08/28/2021 4:28 PM Question Answer Comments Provide aggressive medical m anagement before a full cardiopulmonary arrest occurs. Use antibiotics, IV Fluids, and medical treatment unless specifically selected below: No intubation Care Teams Long Term Acute Care Registered Nurse Relationship Specialty Start Date End Date Demetri Baker MD PCP - General 08/21/07 Mayito Tucker, DPM [address] [place] [address] Consulting Physician Orthopedic Surgery 04/17/20
--- OUTSIDE RECORDS SUMMARY | 2024-05-29 18:47 | XMS_ITS | Referral Summary ---
Author Organization [facility] [address] Address [address] [place] [address] Care Team Providers Care Sprinkler Irrigation Equipment Mechanic Name Role Phone Demetri Baker MD Primary Care Provider [phone] Mayito Tucker DPM Unavailable [phone] Allergies Active Allergy Reactions Criticality Noted Date [...] 24 hr tabletIndicatio ns:Coronary artery disease of [place] artery of [place] heart with stable angina pectoris (HCC) TAKE 1 TABLET(30 MG) BY MOUTH DAILY 90 tablet 3 09/25/19 24 Active Livalo 4 mg tabletIndicatio ns:Coronary artery disease of [place] artery of [place] heart with stable angina pectoris (HCC) TAKE 1 TABLET(4 MG) BY MOUTH EVERY NIGHT 30 tablet 11 10/23/19 24 Active metoprolol tartrate (LOPRESSOR) 25 mg immediate release tabletIndicatio ns:Coronary artery disease of [place] artery of [place] heart with stable angina pectoris (HCC) TAKE 1 TABLET(25 MG) BY MOUTH THREE TIMES DAILY EVERY 8 HOURS 270 tablet 2 05/15/19 25 Active metoprolol tartrate (LOPRESSOR) 25 mg immediate release tabletIndicatio ns:Coronary artery disease of [place] artery of [place]tok heart with stable angina pectoris (HCC) TAKE 1 TABLET(25 MG) BY MOUTH THREE TIMES DAILY EVERY 8 HOURS 270 tablet 2 08/14/19 24 025 Discontinued Active Problems Problem Noted Date Diagnosed Date Abnormal EKG 08/27/2021 NSTEMI (non-ST elevated myocardial infarction) ( [facility] 08/26/2021 Overview (08/27/2021): Added automatically from request for surgery [id number] Osteoarthritis of both glenohumeral joints 10/06 Bilateral lower extremity edema 06/05/2020 Hammer toe of left foot 04/17/2020 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 ([facility]) 08/29/2017 Hyperlipidemia associated with type 2 diabetes [...] (08/27/2021): Cancer, breast GERD (gastroesophageal reflux disease) Social History Tobacco Use Types Packs/Day Years [...] on file Legal Sex Female 9:33 AM TELETYPIST Gender Identity Not on file Sexual Orientation [...] 12/15/2023 3:11 PM CDT Plan of Treatment Not on file Medical Devices Implanted Type Area Nonprofit Fundraiser Device Identifier Shelf Expiration Date Model / Serial / Lot Tenfuse Pip Allograft Non-Acid Washed Implanted:Qty: 1 on 04/17/2020 by Mayito Tucker DPM at [facility] Graft Left: Foot [employer] [id number] 02/15/2021 [id number] / / [id number] Angio-Seal Evolution 6fr Vascular Closure [id number] - [id number] Implanted:Qty: 1 on 08/27/2021 by Brinda Martinez MD at [facility] 04/02/2022 [id number] / / [id number] Procedures Procedure Name Priority Date/Time Associated Diagnosis Comments LIPID PANEL Routine 09/20/2022 10:59 AM CDT EGFR Routine 08/28/2021 5:22 AM CDT HEMOGLOBIN A1C Routine 08/27/2021 6:57 AM CDT from Last 3 Months or Most Recently Relevant to Health Maintenance Results * Lipid panel (09/20/2022 10:59 AM CDT) Blood Historical Provider LAB BLOOD ORDERABLES Paty l [...] was last reviewed 2021. Testing performed by: [address] [address] Blood 08/28/2021 5:22 AM CDT 08/28/2021 5:32 AM CDT Pretty Pierson NP LAB BLOOD ORDERABLES Final Result [facility] [address] [facility] Department [place] [address] * (ABNORMAL) Hemoglobin A1c (08/27/2021 6:57 AM CDT) Hgb A1C 6.5(H) 4.0 - 5.6 % [facility] ECHOLS Comment:Testing performed by : [address] [address] Estimated Average Glucose 140 mg/dL [facility] ECHOL[facility] Comment: The ADA recommends reporting an estimated Average Glucose (eAG) with all Hemoglobin A1c results using the equation derived from a study of 507 normal and diabetic adults. Minority populations were underrepresented and children were not included. (Diabetes Care 31:9959-7988, 2008). The eAG is not equivalent to a fasting glucose. Testing performed by: [facility], [address] [place] [address]., [address] Blood 08/27/2021 6:57 AM CDT 08/27/2021 7:01 AM CDT us Kelly Esquivel MD LAB BLOOD ORDERABLES Final Res ult [facility] [address] [facility] Department [place] [address] from Last 3 Months or Most Recently Relevant to Health Maintenance Insurance [facility] Address: [facility] [address] [place] [address] [facility]CR HMO [facility] Address: [address] [address] [place] [address] [employer] [facility] Address: [address] [address] [place] [address] Advance Directives For more information, please contact: [phone] * LIMITED - No CPR (Latest Code Status on File) Date Activated Date Inactivated Comments 08/27/2021 3:46 PM 08/28/2021 4:28 PM Question Answer Comments Provide aggressive medical m anagement before a full cardiopulmonary arrest occurs. Use antibiotics, IV Fluids, and medical treatment unless specifically selected below: No intubation Care Teams Sprinkler Irrigation Equipment Mechanic Relationship Specialty Start Date End Date Demetri Baker MD PCP - General 08/21/07 Mayito Tucker, DPM [address] [place] [address] Consulting Physician Orthopedic Surgery 04/17/20
--- OUTSIDE RECORDS SUMMARY | 2024-05-29 18:47 | XMS_ITS | Encounter Summary ---
Author Organization [facility] Address [address] [place] [address] Care Team Providers Care Lemon Picker Name Role Phone Demetri Baker MD Primary Care Provider [phone] Encounter Details Date Type Department Care Team (Late st Contact Info) Description 02/04/2017 Abstract [place] [address] , Generic ConversionMD Social History Tobacco Use Types Packs/Day Years Used Date Smoking Tobacco: Never Assessed Comments Unknown Sex and Gender Information Value Date Recorded Sex Assigned at Not on file Legal Sex Female 6:17 PM CDT Gender Identity Not on file Sexual Orientation Not on file documented as of this encounter Plan of Treatment Not on file documented as of this encounter Visit Diagnoses Not on filedocumented in this encounter Care Teams Lemon Picker Relationship Specialty Start Date End Date Demetri Baker MD PCP - General 05/16/14 documented as of this encounter
--- OUTSIDE RECORDS SUMMARY | 2024-05-29 18:47 | XMS_ITS ---
Author Organization [facility] [address] Address [address] [place] [address] Care Team Providers Care Farm Equipment Mechanic Name Role Phone Demetri Baker MD Primary Care Provider [phone] Mayito Tucker DPM Unavailable [phone] Active Problems Problem Noted Date Diagnosed Date Abnormal EKG 08/27/2021 NSTEMI (non-ST elevated myocardial infarction) ( [facility]) 08/26/2021 Overview (08/27/2021): Added automatically from request for surgery [id number] Osteoarthritis of both glenohumeral joints 10/06 Bilateral lower extremity edema 06/05/2020 Hammer toe of left foot 04/17/2020 Coronary artery disease of n ative artery of [place] heart with stable angina pectoris ([facility]) 08/29/2017 Hyperlipidemia associated with type 2 diabetes [...] (08/27/2021): Cancer, breast GERD (gastroesophageal reflux disease) Current Treatment and Therapy Plans No current plan information found. Past Treatment and Therapy Plans No past plan information found. Lifetime Dose Tracking * Chemical Lifetime Dose Automatic Entry Manual Entr y Air kerma at the reference point (Ka,r) 900 mGy 0 mGy 900 mGy
--- OUTSIDE RECORDS SUMMARY | 2024-05-29 18:47 | XMS_ITS | Continuity of Care Document ---
Author Organization [facility] Address [address] [place] [address] Phone Care Team Providers Care Corner Block Cutter Name Role Phone Carlos Lombardi PTA Unavailable Unavailable Procedures Procedure Date Therapeutic Activities Neuromuscular Re-Ed Therapeutic Exercise Therapeutic Activities Neuromuscular Re-Ed Therapeutic Exercise Therapeutic Activities Neuromuscular Re-Ed Therapeutic Exercise Therapeutic Activities Neuromuscular Re-Ed Therapeutic Exercise Therapeutic Activities Neuromuscular Re-Ed Therapeutic Exercise Therapeutic Activities Neuromuscular Re-Ed Therapeutic Exercise Therapeutic Activities Therapeutic Exercise Doc neg elder mal no plan PRES/ABSN URINE INCON ASSESS PT Evaluation Low Complexity Neuromuscular Re-Ed Therapeutic Exercise Advance Directives Directive Yes / No Effective Date File Name No Information Encounters Encounter Description Practice Location Reason(s) For Visit Diagnoses Date Provider Providers Copied on Encounter [facility], [address], [place], [place], [id number], tel:[phone] [address] [place] No Information Maria C Gonzalez. . Referring Provider: Jorge Luis Fernandes, [facility], [place], [address]. tel:[phone] [place] [address], [id number], [place] tel:[phone] [place] No Information Maria C Gonzalez. . Referring Provider: Jorge Luis Fernandes, [facility], [place], [address]. tel:[phone] [place] [address], [id number], [place] tel:[phone] [facility] [place] No Information Maria C Gonzalez. . Referring Provider: Jorge Luis Fernandes, [facility], [place], [address]. tel:[phone] [place] [address], [place], [place], [id number], tel:[phone] [address] [place] No Information Maria C Gonzalez. . Referring Provider: Jorge Luis Fernandes, [facility], [place], [address]. tel:[phone] [place] [address], [id number], tel:[phone] [facility] [place] No Information Maria C Gonzalez. . Referring Provider: Jorge Luis Fernandes, [facility], [place], [address]. tel:[phone] [place] [address], [id number], [place] tel:[phone] [facility] [place] No Information Maria C Gonzalez. . Referring Provider: Jorge Luis Fernandes, [facility], [place], [address]. tel:[phone] [place] [address], [place], [id number], tel:[phone] [address] No Information Nabeel Pettit. . Referring Provider: Jorge Luis Fernandes, [facility], [place], [address]. tel:[phone] [facility], [address], [place], [place], [id number], tel:[phone] [facility] No Information Nabeel WilverJorge . Referring Provider: Jorge Luis Fernandes, [address] [facility], [place], [address]. tel:[phone] Family History Family Member Type Diagnosis Age At Onset No Information Payers Payer name Insurance type Covered democrat ID Authoranniea atul(s) [employer] CI [id number] Social History Type Description Quantity Date Captured Comments Sex Female Smoking Status No Information Chief Complaint And Reason For Visit No Information Reason For Referral Reason For Referral No Information History Of Present Illness Encounter Date Complaint History Of Prese nt Illness No Information Functional Status Date Functional Assessmen t No Information Instructions Date Instruction Additional Infor mation Giving encouragement to exercise Related to Overweight Giving encouragement to exercise Related to Overweight Giving encouragement to exercise Related to Overweight Giving encouragement to exercise Related to Overweight Assessments Type Assessment Date No Information Patient Care Teams Name Effective Dates (start - stop) Status Members No Information
--- OUTSIDE RECORDS SUMMARY | 2024-05-29 18:47 | XMS_ITS | Continuity of Care Document ---
Author Organization [facility] Address [address] [place] [address] Phone Care Team Providers Care Panel Flow Machine Operator Name Role Phone Emery Lazcano Unavailable Unavailable Advance Directives Directive Yes / No Effective Date File Name No Information Encounters Encounter Description Practice Location Reason(s) For Visit Diagnoses Date Provider Providers Copied on Encounter [facility], [address], [place], [place], [id number], [place] tel:[phone] [facility] No Information May-0 1-200 [address], [place], [address], [place]. tel:[phone] Family History Family Member Type Diagnosis Age At Onset No Information Payers Payer name Insurance type Covered constitution [...] Information Instructions Date Instruction Additional Infor mation No Information Assessments Type Assessment Date No Information Patient Care Teams Name Effective Dates (start - stop) Status Members No Information
[2024-05-29 18:49] LABS: Basophils Percent Auto 0.1 % (0.2-1.2); Eosinophils Absolute Auto 0.1 K/mm3 (0-0.3); Eosinophils Percent Auto 1.6 % (0-4.4); Hematocrit 37.8 % (37.0-47.0); Hemoglobin 12.8 g/dL (12.0-15.0); Immature Granulocyte Absolute 0.02 K/mm3 (0.00-0.031); Immature Granulocyte Percent A 0.3 % (0-0.5); Lymphocytes Percent Auto 27.8 % (18.3-44.2); Mean Corpuscular HGB Conc 33.9 g/dl (32-36); Mean Corpuscular Hemoglobin 31.7 pg (26-34); Mean Corpuscular Volume 93.6 fl (80-100); Monocytes Absolute Auto 0.4 K/mm3 (0.1-0.6); Monocytes Percent Auto 6.1 % (2.6-8.5); Neutrophils Absolute Auto 4.4 K/mm3 (1.3-6.7); Neutrophils Percent Auto 64.1 % (45.5-73.1); Platelet Count Result 167 k/mm3 (150-375); Red Blood Count 4.04 M/mm3 (4.2-5.4); White Blood Count 6.8 K/mm3 (4.5-10.0)
[2024-05-29 19:01] LABS: Alanine Aminotransferase 19 U/L (6-35); Albumin Level 4.2 g/dL (3.5-5.1); Alkaline Phosphatase 55 U/L (38-126); Anion Gap 8 mmol/L (4-12); Aspartate Amino Transferase 25 U/L (14-36); Bilirubin,Total 1.1 mg/dL (0.2-1.3); Blood Urea Nitrogen 20 mg/dL (7-17); Calcium 10.2 mg/dL (8.4-10.2); Carbon Dioxide 30 mmol/L (22-30); Chloride 101 mmol/L (98-107); Estimated CRCL calculation 35 ml/min; Estimated Glomerular Filt Rate 48; Glucose 145 mg/dL (65-110); Lipase 114 U/L (23-300); Potassium 4.3 mmol/L (3.4-5.0); Sodium 139 mmol/L (137-145)
[2024-05-29 19:12] LABS: Troponin I < 0.012 ng/mL (0.000-0.034)
[2024-05-29 19:15] LABS: INR 1.1; Prothrombin Time 14.2 Seconds (11.1-14.7)
[2024-05-29 19:32] LABS: Influenza A QL RT-PCR Negative (Negative); Influenza B QL RT-PCR Negative (Negative); RSV RNA, RT-PCR Negative (Negative); SARS-CoV-2 RNA PCR Negative (Negative)
[2024-05-29 22:09] LABS: Troponin I < 0.012 ng/mL (0.000-0.034)
--- NOTE | 2024-05-29 22:33 | ED.CHESTPAIN ---
HPI - Chest Pain General Chief Complaint: Chest Pain Stated Complaint: chest pain Time Seen by Provider: 05/29/24 18:20 Source: patient Mode of arrival: ambulatory Limitations: no limitations Related Data Home Medications ?Medication ?Instructions ?Recorded ?Confirmed ?Last Taken ?Type albuterol sulfate 90 mcg/actuation 2 puff inhalation Q6H PRN 02/20/20 09/14/21 Unknown History aerosol inhaler Shortness Of Breath Or Wheezing alprazolam 0.5 mg tablet 0.5 mg PO Q12H PRN Anxiety 02/20/20 09/14/21 Unknown History meclizine 25 mg tablet 25 mg PO Q8H PRN Dizziness Or 02/20/20 09/14/21 Unknown History Vertigo pitavastatin calcium 4 mg tablet 4 mg PO DAILY 02/20/20 09/14/21 Unknown History (Livalo) acetaminophen 500 mg tablet 500 mg PO Q6H PRN Pain (Scale 09/14/21 09/14/21 Unknown History Score 1-3) aspirin 81 mg tablet,delayed 81 mg PO DAILY 09/14/21 09/14/21 Unknown History release cholecalciferol (vitamin D3) 125 125 mcg PO DAILY 09/14/21 09/14/21 Unknown History mcg (5,000 unit) capsule clopidogrel 75 mg tablet 75 mg PO DAILY 09/14/21 09/14/21 Unknown History famotidine 20 mg tablet 20 mg PO DAILY 09/14/21 09/14/21 Unknown History hydrochlorothiazide 12.5 mg tablet 12.5 mg PO DAILY 09/14/21 09/14/21 Unknown History levocetirizine 5 mg tablet (Xyzal) 5 mg PO DAILY PRN Allergy Symptoms 09/14/21 09/14/21 Unknown History losartan 100 mg tablet 100 mg PO DAILY 09/14/21 09/14/21 Unknown History nitroglycerin 0.4 mg sublingual 0.4 mg sublingual Q5M PRN Chest 09/14/21 09/14/21 Unknown History tablet Pain Allergies Allergy/AdvReac Type Severity Reaction Status Date / Time Penicillins Allergy Unknown Rash Verified 05/29/24 17:53 [facility] Past Medical History Medical History (Updated 09/15/21 @ 15:48 by Zoe lAlen, GENERAL OPERATIONS AGENT) Arthritis Hiatal hernia GERD (gastroesophageal reflux disease) Anxiety Obesity (BMI 30.0-34.9) Asthma Coronary artery disease Diabetes mellitus Hypertension Surgical History Surgical History (Updated 09/14/21 @ 14:37 by Zoe Allen, GENERAL OPERATIONS AGENT) S/P lumpectomy, left breast S/P total hysterectomy and BSO (bilateral salpingo-oophorectomy) H/O cardiac catheterization Family History Family History Father Malignant neoplasm of prostate Social History Social History (Updated 09/14/21 @ 14:38 by Zoe Allen, GENERAL OPERATIONS AGENT) Smoking status: Never smoker Second hand tobacco smoke exposure: No Alcohol intake: never Substance use: never Living arrangements: with family Gender identity (if verbalized by the patient): Female Spiritual care concerns: No Exam Narrative: GENERAL: Well-appearing, well-nourished, and in no acute distress. HEAD: Normocephalic, atraumatic. EYES: PERRLA and EOMI. ENT: Nares clear, no rhinorrhea or epistaxis. Mucous membranes moist. Oropharynx without tonsillar hypertrophy exudate or other lesions. NECK: Supple. No adenopathy or masses. CHEST: No respiratory distress. Clear to auscultation. No wheezes rales or rhonchi HEART: Regular rate and rhythm. No murmur heard. Normal peripheral pulses. ABDOMEN: Soft, nontender, nondistended, normal active bowel sounds. MSK: Normal range of motion. No edema. SKIN: Warm, dry, no rash. NEURO: Alert and oriented x4. No focal deficits. PSYCH: Normal mood and affect. Course Vital Signs Vital signs: Vital Signs Temperature 97.4 F L 05/29/24 18:17 Pulse Rate 88 05/29/24 18:17 Respiratory Rate 16 05/29/24 18:17 Blood Pressure 189/81 H 05/29/24 18:17 Pulse Oximetry 100 05/29/24 18:17 Temperature 97.4 F L 05/29/24 18:17 Pulse Rate 78 05/29/24 21:32 Respiratory Rate 18 05/29/24 21:32 Blood Pressure 180/80 H 05/29/24 21:32 Pulse Oximetry 99 05/29/24 21:32 MDM - Chest Pain MDM Narrative Medical decision making narrative: This is a yo presents to the ED for . Vitals . Exam shows Lab work . Imaging . Patient will be discharged in stable condition. Supportive measures discussed and return precautions given. Patient is understanding and agreeable with plan for discharge with PCP follow-up. Lab Data 05/29/24 18:29 05/29/24 18:29 Labs: Lab Results 05/29/24 05/29/24 Range/Units 18:29 21:34 WBC 6.8 (4.5-10.0) K/mm3 RBC 4.04 L (4.2-5.4) M/mm3 Hgb 12.8 (12.0-15.0) g/dL Hct 37.8 (37.0-47.0) % MCV 93.6 (80-100) fl MCH 31.7 (26-34) pg MCHC 33.9 (32-36) g/dl RDW 12.0 (11.5-14.5) % Plt Count 167 (150-375) k/mm3 MPV 11.0 H (7.4-10.4) fl Immature Gran % (Auto) 0.3 (0-0.5) % Neut % (Auto) 64.1 (45.5-73.1) % Lymph % (Auto) 27.8 (18.3-44.2) % Schleicher % (Auto) 6.1 (2.6-8.5) % Eos % (Auto) 1.6 (0-4.4) % Baso % (Auto) 0.1 L (0.2-1.2) % Lymph # (Auto) 1.90 (0.9-3.2) K/mm3 Schleicher # (Auto) 0.4 (0.1-0.6) K/mm3 Eos # (Auto) 0.1 (0-0.3) K/mm3 Baso # (Auto) 0.0 (0.0-0.1) K/mm3 Abs Immat Gran (auto) 0.02 (0.00-0.031) K/mm3 Absolute Neuts (auto) 4.4 (1.3-6.7) K/mm3 Absolute Nucleated RBC 0.000 (0.0-0.012) K/mm3 Nucleated RBC % 0.0 (0.0-0.2) % PT 14.2 (11.1-14.7) Seconds INR 1.1 APTT 34.0 (22.3-36.8) Seconds Sodium 139 (137-145) mmol/L Potassium 4.3 (3.4-5.0) mmol/L Chloride 101 (98-107) mmol/L Carbon Dioxide 30 (22-30) mmol/L Anion Gap 8 (4-12) mmol/L BUN 20 H (7-17) mg/dL Creatinine 1.07 H (0.7-1.0) mg/dL Estim Creat Clear Calc 35 ml/min Estimated GFR 48 L (59 - ) Glucose 145 H (65-110) mg/dL Calcium 10.2 (8.4-10.2) mg/dL Total Bilirubin 1.1 (0.2-1.3) mg/dL AST 25 (14-36) U/L ALT 19 (6-35) U/L Alkaline Phosphatase 55 (38-126) U/L Troponin I < 0.012 < 0.012 (0.000-0.034) ng/mL Total Protein 7.0 (6.3-8.2) g/dL Albumin 4.2 (3.5-5.1) g/dL Lipase 114 (23-300) U/L Influenza A (RT-PCR) Negative (Negative) Influenza B (RT-PCR) Negative (Negative) RSV (RT-PCR) Negative (Negative) SARS-CoV-2 RNA (RT-PCR) Negative (Negative) Discharge Plan Discharge Patient Language: Djiboutian Prescriptions: No Action clopidogrel 75 mg tablet 75 mg PO DAILY aspirin 81 mg Tablet,Delayed Release (Dr/Ec) 81 mg PO DAILY acetaminophen 500 mg Tablet 500 mg PO Q6H PRN (Reason: Pain (Scale Score 1-3)) famotidine 20 mg tablet 20 mg PO DAILY nitroglycerin 0.4 mg tablet, sublingual 0.4 mg sublingual Q5M PRN (Reason: Chest Pain) Rx Instructions: may repeat x3 losartan 100 mg tablet 100 mg PO DAILY cholecalciferol (vitamin D3) 125 mcg (5,000 unit) Capsule 125 mcg PO DAILY hydrochlorothiazide 12.5 mg tablet 12.5 mg PO DAILY levocetirizine [Xyzal] 5 mg Tablet 5 mg PO DAILY PRN (Reason: Allergy Symptoms) metoprolol tartrate 25 mg Tablet 25 mg PO Q8HR 30 Days Qty: 90 0RF diclofenac sodium 1 % gel 4 g topical QID PRN (Reason: arthritis pain) Qty: 100 0RF Rx Instructions: apply to single knee, ankle, foot; for foot includes sole/toes/top of foot benzonatate 100 mg capsule 100 mg PO BID PRN (Reason: cough) Qty: 14 0RF alprazolam 0.5 mg tablet 0.5 mg PO Q12H PRN (Reason: Anxiety) meclizine 25 mg tablet 25 mg PO Q8H PRN (Reason: Dizziness Or Vertigo) albuterol sulfate 90 mcg/actuation HFA aerosol inhaler 2 puff INHALATION Q6H PRN (Reason: Shortness Of Breath Or Wheezing) Livalo 4 mg tablet 4 mg PO DAILY Follow-up/Referrals: Demetri Baker MD [Primary Care Provider] - Quality HEART score for chest pain patients History: slightly suspicious ECG: normal Age: > or = to 65 years Risk factors: > or = to 3 risk factors of atherosclerotic disease Troponin: < or = to 1x normal limit Heart score: 4
--- OUTSIDE RECORDS SUMMARY | 2024-05-29 22:50 | XMS_ITS | Encounter Summary ---
Author Organization [facility] Address [address] [place] [address] Care Team Providers Care Configuration Manager Name Role Phone Demetri Baker MD Primary Care Provider [phone] Encounter Details Date Type Department Care Team (Late st Contact Info) Description 02/04/2017 Abstract [place] [address] , Generic ConversionMD Social History [...] on filedocumented in this encounter Care Teams Configuration Manager Relationship Specialty Start Date End Date Demetri Baker MD PCP - General 05/16/14 documented as of this encounter
--- OUTSIDE RECORDS SUMMARY | 2024-05-29 22:50 | XMS_ITS | Clinical Summary ---
Author Organization [facility] Address [address] [place] [address] Care Team Providers Care Overseer Kosher Kitchen Name Role Phone Demetri Baker MD Primary Care Provider [phone] Allergies Active Allergy Reactions Criticality Noted Date [...] to complete this topic Insurance [facility]ICARE [facility] Care Teams Overseer Kosher Kitchen Relationship Specialty Start Date End Date Demetri Baker MD PCP - General 05/16/14
--- OUTSIDE RECORDS SUMMARY | 2024-05-29 22:50 | XMS_ITS | Data Portability ---
Author Organization [place] - [facility], Main Office Address [address] [place] [address] Care Team Providers Care Supervisor General Name Role Phone JACKY BENTLEY Primary Care Provider JACKY BENTLEY Referring Provider [phone] Assessment Encounter Date Assessment Date Assessment LastModified by Organization Details LastModified Time 11/30/2022 11/30/2022 87-year-old femolvin marks presents to our clinic with progressive bilateral knee osteoarthritis, left worse than right. She has previously received a steroid injection in September that provided her with minimal relief as well as taking Tylenol and Celebrex. We discussed possible treatment options including oral anti-inflammatories, topical anti-inflammatories, referral to physical therapy, and viscosupplementation. she will continue with her Tylenol and Celebrex as prescribed. She may use topical Voltaren gel in addition to help with any inflammation and pain. We will refer her to physical therapy to help with knee range of motion strengthening. If she continues to be symptomatic after physical therapy and anti-inflammatories, we may consider repeat corticosteroid injection or viscosupplementation injection at that time. She may follow-up as needed for symptoms persist or worsen. [email or web address] Not available 11/30/2022 15:38:15 Plan of Treatment Reminders Order Date Submit Date Provider Last Modified By Organization Details Last Modified Time Details Appointments None recorded. Lab None recorded. Referral physical therapist referral - [facility] 2022 023 [facility] [place], [address] , [place], [address], 14:19:24 Procedures None recorded. Surgeries None recorded. Imaging XR, knee 2022 023 [email or web address] [place], [address], [place], [address], 09:23:17 Medication Orders None recorded. Patient TargetsNo targets recorded. Patient InstructionsNo instructions recorded. Reason for Referral Physical Therapist Referral for Pain of bilateral knee joints [facility] Referring Physician: Luís Fallon, Orthopedics, Encounter Date: 11/30/2022 Results Created Date Observation Date Name Description Value Unit Range Abnormal Flag Note LastModifiedBy Organization Detail LastModifiedTime 11/25/19 23 09/19/2022 XR, knee, 4 or more view No observ ation record ed. Not Available 11/02 10:46:08 11/25/19 23 09/19/2022 XR, femur , 2 or more view No observ ation record ed. Not Available 11/02 10:46:08 11/25/19 23 09/19/2022 XR, tibia + fibul a, 2 view No observ ation record ed. Not Available 11/02 10:46:08 11/25/19 23 09/19/2022 XR, hip + pelvi s, bilat eral, 2 view No observ ation record ed. Not Available 11/02 10:46:08 11/25/19 23 09/19/2022 XR, lumba r spine , 2 view No observ ation record ed. Not Available 11/02 10:46:09 11/25/19 23 09/26/2022 US, doppl er, venou s No observ ation record ed. Not Available 11/02 10:46:09 12/01/19 XR, knee No observ ation record ed. [email or web address] [facility] [place] [address], [place], [address], 11/30/2022 15:35:40 Result Notes None recorded. Problems Name Problem SNOMED Code Status Onset Date Resolution Date Notes Provider Name and Address Organization Details Recorded Time Pain of bilateral knee joints 06599881040218 4 Active 2022 DAKOTAH Barker [facility] 14:19:27 Problem Notes None recorded. Procedures Surgical History None recorded. Imaging Results Imaging Date Name Status LastModified by Organiz ation Details LastModified Time 09/19/2022 XR, knee, 4 or more view completed Information not available 11/24/2022 10:46:08 09/19/2022 XR, femur, 2 or more view completed Information not available 11/24/2022 10:46:08 09/19/2022 XR, tibia + fibula, 2 view completed Information not available 11/24/2022 10:46:08 09/19/2022 XR, hip + pelvis, bilateral, 2 view completed Information not available 11/24/2022 10:46:08 09/19/2022 XR, lumbar spine, 2 view completed Information not available 11/24/2022 10:46:09 09/26/2022 US, doppler, venous completed Information not available 11/24/2022 10:46:09 11/30/2022 XR, knee completed miranda [facility] [place] [address], [place], [address], 11/30/2022 15:35:40 Procedure Notes None recorded. Medical Equipment None Reported. Allergies Allergen ID Allergen Name Allergen Category Reaction Reaction Severity Criticality Documentation Date Start Date Code Code System Note Provider Name and Address Organization Details Recorded Time 03261 Product containin g penicilli n (product) medicatio n Not available Not available Not available 11/30/2022 64266 8001 SNOMED DAKOTAH Barker, [facility] 14:14:33 Medications Name Sig Start Date Stop Date Status Note LastModified by Organization Details LastModified Time celecoxib 200 mg capsule TAKE 1 CAPSULE BY MOUTH EVERY DAY NEEDED KNEE AND SHOUDER PAIN active Not Available Not Available No t Available isosorbide mononitrate ER 30 mg tablet,extende d release 24 hr active Not Available Not Available Not Available alprazolam 0.5 mg tablet TAKE 1 TABLET BY MOUTH TWICE DAILY active Not Available Not Available No t Available nitroglycerin 0.4 mg sublingual tablet DISSOLVE 1 TABLET UNDER THE TONGUE EVERY 5 MINUTES NEEDED FOR CHEST PAIN active Not Available Not Available No t Available Pepcid 20 mg tablet Take 1 tablet twice a day by oral route. active Not Available Not Available No t Available albuterol sulfate HFA 90 mcg/actuation aerosol inhaler INHALE 2 PUFFS BY MOUTH EVERY 4 TO 6 HOURS NEEDED active Not Available Not Available No t Available losartan 50 mg-hydrochloro thiazide 12.5 mg tablet TAKE 1 TABLET BY MOUTH EVERY DAY active Not Available Not Available No t Available metoprolol tartrate 25 mg tablet TAKE 1 TABLET BY MOUTH EVERY 8 HOURS active Not Available Not Available No t Available aspirin 81 mg active Not Available Not Avail able Not Available Xyzal 5 mg tablet Take 1 tablet every day by oral route. active Not Available Not Available No t Available Livalo 4 mg tablet active Not Available Not Available Not Available cholecalcifero l (vit D3) 1,000 unit-vitamin K2 (MK4) 100 mcg tablet Take by oral route. active Not Available Not Available No t Available Vitals Date Recorded Body height Body mass index (BMI) Body weight Pain severity - 0-10 verbal numeric rating [Score] - Reported Provider Name and Address Organization Details Last Updated DateTime 11/30/2022 162.56 cm 34.3 kg/m2 89173.47 g 10 DAKOTAH Barker [place] [facility] 11/30/2022 14:14:11 Social History Question Answer Notes LastModified by Organizat ion Details LastModified Time What Is Your Level Of Alcohol Consumption? None [email or web address] Information not available 11/30/2022 What Was The Date Of Your Most Recent Tobacco Screening? 11/30/2022 Information not available 11/30/2022 Sex: Unknown Functional Status None recorded. Mental Status None recorded. Family History Nothing Reported. Medical History Condition Response ARTHRITIS Y ANEMIA/BLOOD DISORDER Y USE OF NSAIDS Y Gynecological HistoryNo gynecological history recorded. Obstetrics History GPAL:G 0 P 0 0 0 0 Past Encounters Encounter ID Performer Location Encounter Start Date Encounter Closed Date Diagnosis/Indication Diagnosis SNOMED-CT Code Diagnosis ICD10 Code Diagnosis Note [id number] GIORGI Marx [facility] [address] [place] [address] 11/30/2022 14:00:38 11/30/2022 14:58:05 Pain of bilateral knee joints [id number] 08226 M25.569 Health Concerns Section Related Observation LastModified by Organization Detai ls LastModified Time None Recorded Concern Status LastModified by Organization Details LastModified Time None Recorded Advance Directives Directive None Recorded Payers Encounter Date Sequence Insurance Name Policy Number Policy Feliciano Covered Member ID Feliciano Member ID Guarantor Name 11/30/2022 1 [facility] (MEDICARE REPLACEMENT/A DVANTAGE - HMO) [id number] [address] [employer] Vickers [id number] [place] Notes Date Note Type Note Provider Name and Address Organization Details Recorded Time 11/30/2022 text/html 87-year-old екатерина marks presents to clinic concerning progressive bilateral knee pain that she has had for years. her left knee is worse than her right knee. She denies any injury to her knees. Her pain is exacerbated with daily use and activities of daily living including climbing stairs and ambulation. she states that she previously received a steroid injection into her left knee approximately 2 months ago when she was in [place] visiting family. She also has been taking Tylenol and Celebrex for pain management. She has not participated in physical therapy. GIORGI Marx [address] [place] [address] [address], [place], [address], [facility] [place] [facility] 11/30/2022 15:38:36 OBGyn Episode No OBEpisode recorded.
--- OUTSIDE RECORDS SUMMARY | 2024-05-29 22:51 | XMS_ITS | Referral Summary ---
Author Organization [facility] [address] Address [address] [place] [address] Care Team Providers Care Escrow Closer Name Role Phone Demetri Baker MD Primary Care Provider [phone] Mayito Tucker DPM Unavailable [phone] Allergies Active Allergy Reactions Criticality Noted Date [...] 24 hr tabletIndicatio ns:Coronary artery disease of [place] artery of [place] heart with stable angina pectoris (HCC) TAKE 1 TABLET(30 MG) BY MOUTH DAILY 90 tablet 3 09/25/19 24 Active Livalo 4 mg tabletIndicatio ns:Coronary artery disease of [place] artery of [place] heart with stable angina pectoris (HCC) TAKE 1 TABLET(4 MG) BY MOUTH EVERY NIGHT 30 tablet 11 10/23/19 24 Active metoprolol tartrate (LOPRESSOR) 25 mg immediate release tabletIndicatio ns:Coronary artery disease of [place] artery of [place] heart with stable angina pectoris (HCC) TAKE 1 TABLET(25 MG) BY MOUTH THREE TIMES DAILY EVERY 8 HOURS 270 tablet 2 05/15/19 25 Active metoprolol tartrate (LOPRESSOR) 25 mg immediate release tabletIndicatio ns:Coronary artery disease of [place] artery of [place] heart with stable angina pectoris (HCC) TAKE 1 TABLET(25 MG) BY MOUTH THREE TIMES DAILY EVERY 8 HOURS 270 tablet 2 08/14/19 24 025 Discontinued Active Problems Problem Noted Date Diagnosed Date Abnormal EKG 08/27/2021 NSTEMI (non-ST elevated myocardial infarction) ( [facility]) 08/26/2021 Overview (08/27/2021): Added automatically from request for surgery [id number] Osteoarthritis of both glenohumeral joints 10/06 Bilateral lower extremity edema 06/05/2020 Hammer toe of left foot 04/17/2020 Coronary artery disease of n ative artery of [place] heart with stable angina pectoris ([facility]) 08/29/2017 Hyperlipidemia associated with type [...] on file 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 Gender Identity Not on file Sexual Orientation [...] on file Medical Devices Implanted Type Area Cnc Mechanic Device Identifier Shelf Expiration Date Model / Serial / Lot Tenfuse Pip Allograft Non-Acid Washed Implanted:Qty: 1 on 04/17/2020 by Mayito Tucker DPM at [facility] Graft Left: Foot [email or web address] [id number] 02/15/2021 [id number] / / [id number] Angio-Seal Evolution 6fr Vascular Closure [id number] - [id number] Implanted:Qty: 1 on 08/27/2021 by Brinda Martinez MD at [facility] [employer] [facility] 04/02/2022 [id number] / / [id number] Procedures Procedure Name Priority Date/Time Associated Diagnosis [...] was last reviewed 2021. Testing performed by: [address] [address] Blood 08/28/2021 5:22 AM CDT 08/28/2021 5:32 AM CDT Pretty Pierson NP LAB BLOOD ORDERABLES Final Result [facility] [address] [facility] Department [place] [address] * (ABNORMAL) Hemoglobin A1c (08/27/2021 6:57 AM CDT) Hgb A1C 6.5(H) 4.0 - 5.6 % [facility] Comment:Testing performed by : [address] [address] Estimated Average Glucose 140 mg/dL [facility] Comment: The ADA recommends reporting an estimated Average Glucose (eAG) with all Hemoglobin A1c results using the equation derived from a study of 507 normal and diabetic adults. Minority populations were underrepresented and children were not included. (Diabetes Care 31:6591-0225, 2008). The eAG is not equivalent to a fasting glucose. Testing performed by: [facility], [address] [place] [address]., [address] Blood 08/27/2021 6:57 AM CDT 08/27/2021 7:01 AM CDT us Kelly Esquivel MD LAB BLOOD ORDERABLES Final Res ult [facility] [address] [facility] Department [place] [address] from Last 3 Months or Most Recently Relevant to Health Maintenance Insurance MEDICARE SOLUTIONS [facility] MDCR HMO REF MEDICARE SOLUTIONS Advance Directives For more information, please contact: [phone] * LIMITED - No CPR (Latest Code Status on File) Date Activated Date Inactivated Comments 08/27/2021 3:46 PM 08/28/2021 4:28 PM Question Answer Comments Provide aggressive medical m anagement before a full cardiopulmonary arrest occurs. Use antibiotics, IV Fluids, and medical treatment unless specifically selected below: No intubation Care Teams Escrow Closer Relationship Specialty Start Date End Date Demetri Baker MD PCP - General 08/21/07 Mayito Tucker, DPM [address] [place] [address] Consulting Physician Orthopedic Surgery 04/17/20
--- OUTSIDE RECORDS SUMMARY | 2024-05-29 22:51 | XMS_ITS ---
Author Organization [facility] [address] Address [address] [place] [address] Care Team Providers Care Medical Records Secretary Name Role Phone Demetri Baker MD Primary Care Provider [phone] Mayito Tucker DPM Unavailable [phone] Active Problems Problem Noted Date Diagnosed Date Abnormal EKG 08/27/2021 NSTEMI (non-ST elevated myocardial infarction) ( [facility]) 08/26/2021 Overview (08/27/2021): Added automatically from request for surgery [id number] Osteoarthritis of both glenohumeral joints 10/06 Bilateral lower extremity edema 06/05/2020 Hammer toe of left foot 04/17/2020 Coronary artery disease of n ative artery of [place] heart with stable angina pectoris ([facility]) 08/29/2017 Hyperlipidemia associated with type [...]
--- OUTSIDE RECORDS SUMMARY | 2024-05-29 22:51 | XMS_ITS | Clinical Summary ---
Author Organization [facility] [address] Address [address] [place] [address] Care Team Providers Care Assistant Brand Manager Name Role Phone Demetri Baker MD Primary Care Provider [phone] Mayito Tucker DPM Unavailable [phone] Allergies Active Allergy Reactions Criticality Noted Date [...] 24 hr tabletIndicatio ns:Coronary artery disease of [place] artery of [place] heart with stable angina pectoris (HCC) TAKE 1 TABLET(30 MG) BY MOUTH DAILY 90 tablet 3 09/25/19 24 Active Livalo 4 mg tabletIndicatio ns:Coronary artery disease of [place] artery of [place] heart with stable angina pectoris (HCC) TAKE 1 TABLET(4 MG) BY MOUTH EVERY NIGHT 30 tablet 11 10/23/19 24 Active metoprolol tartrate (LOPRESSOR) 25 mg immediate release tabletIndicatio ns:Coronary artery disease of [place] artery of [place] heart with stable angina pectoris (HCC) TAKE 1 TABLET(25 MG) BY MOUTH THREE TIMES DAILY EVERY 8 HOURS 270 tablet 2 05/15/19 25 Active metoprolol tartrate (LOPRESSOR) 25 mg immediate release tabletIndicatio ns:Coronary artery disease of [place] artery of [place] heart with stable angina pectoris (HCC) TAKE 1 TABLET(25 MG) BY MOUTH THREE TIMES DAILY EVERY 8 HOURS 270 tablet 2 08/14/19 24 025 Discontinued Active Problems Problem Noted Date Diagnosed Date Abnormal EKG 08/27/2021 NSTEMI (non-ST elevated myocardial infarction) ( [facility]) 08/26/2021 Overview (08/27/2021): Added automatically from request for surgery [id number] Osteoarthritis of both glenohumeral joints 10/06 Bilateral lower extremity edema 06/05/2020 Hammer toe of left foot 04/17/2020 Coronary artery disease of n ative artery of [place] heart with stable angina pectoris ([facility]) 08/29/2017 Hyperlipidemia associated with type [...] on file 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 Gender Identity Not on file Sexual Orientation [...] 2023 07/16/2014 Medical Devices Implanted Type Area Sprinkler Helper Device Identifier Shelf Expiration Date Model / Serial / Lot Tenfuse Pip Allograft Non-Acid Washed Implanted:Qty: 1 on 04/17/2020 by Mayito Tucker DPM at [facility] Graft Left: Foot [employer] [id number] 02/15/2021 [id number] / / [id number] Angio-Seal Evolution 6fr Vascular Closure [id number] - [id number] Implanted:Qty: 1 on 08/27/2021 by Brinda Martinez MD at [facility] [employer] SAR[employer] Rula 04/02/2022 [id number] / / [id number] Procedures Procedure Name Priority Date/Time Associated Diagnosis [...] was last reviewed 2021. Testing performed by: [address] [address] Blood 08/28/2021 5:22 AM CDT 08/28/2021 5:32 AM CDT us Pretty Pierson NP LAB BLOOD ORDERABLES Final Result [facility] [address] [facility] Department [place] [address] * (ABNORMAL) Hemoglobin A1c (08/27/2021 6:57 AM CDT) Hgb A1C 6.5(H) 4.0 - 5.6 % [facility] Comment:Testing performed by : [address] [address] Estimated Average Glucose 140 mg/dL [facility] Comment: The ADA recommends reporting an estimated Average Glucose (eAG) with all Hemoglobin A1c results using the equation derived from a study of 507 normal and diabetic adults. Minority populations were underrepresented and children were not included. (Diabetes Care 31:7535-5653, 2008). The eAG is not equivalent to a fasting glucose. Testing performed by: [facility], [address] [place] [address], [place]., [address] Blood 08/27/2021 6:57 AM CDT 08/27/2021 7:01 AM CDT us Kelly Esquivel MD LAB BLOOD ORDERABLES Final Res ult [facility] [address] [facility] Department [place] [address] from Last 3 Months or Most Recently Relevant to Health Maintenance Insurance MEDICARE SOLUTIONS [facility] MDCR HMO REF MEDICARE SOLUTIONS Advance Directives For more information, please contact: [phone] * LIMITED - No CPR (Latest Code Status on File) Date Activated Date Inactivated Comments 08/27/2021 3:46 PM 08/28/2021 4:28 PM Question Answer Comments Provide aggressive medical m anagement before a full cardiopulmonary arrest occurs. Use antibiotics, IV Fluids, and medical treatment unless specifically selected below: No intubation Care Teams Assistant Brand Manager Relationship Specialty Start Date End Date Demetri Baker MD PCP - General 08/21/07 Mayito Tucker, DPM [address] [place] [address] Consulting Physician Orthopedic Surgery 04/17/20
[2024-05-29 23:17] LABS: NT Pro B Type Natriuretic Pept 414 pg/mL (19.9-100)
[2024-05-29] MEDS: LABETALOL HCL INJ 100 MG/20 ML VIAL 10 MG IV PUSH (23:42)
[2024-05-29] MEDS: ASPIRIN 81 MG CHEWABLE TABLET 324 MG PO (23:54)
[2024-05-30] VITALS (18 sets, daily range): BP systolic 105–154; BP diastolic 46–68; PULSE 63–107; RESP 16–20; TEMP 36.6–37.1; O2SAT 91–100; BMI 33.8
[2024-05-30 00:57] LABS: Troponin I < 0.012 ng/mL (0.000-0.034)
--- NOTE | 2024-05-30 01:15 | PM.IMHP ---
H&P: HPI History of Present Illness Date/Time: 05/30/24 01:15 Chief Complaint: 1. Chest pain Narrative: Queen Vern is an 89 yo F with a mHx significant for obesity, anxiety, GERD, dyslipidemia, CAD, Hypertension Over the last week, she has been experiencing intermittent chest pains; located in the left-side, non-radiating, present at rest and on exertion; alleviated by NTG; associated with anxiety, bilateral leg swellings. She recalls a time when she had COVID-19 infection and a bump in her troponins for which she underwent a cardiac cath which was unremarkable. She denies cough, fevers, chills, dizziness, LOC, wheezing, skin/joint changes She does not smoke/chew tobacco, drink alcohol or consume recreational/illicit drugs Work-up findings Troponin: 0.012 >> 0.012 >> 0.012 BNP 414 CXR: No acute cardiopulmonary process. CTA chest: No CT evidence of acute pulmonary embolus. No acute process detected in the chest. ECG: NSR; non-specifici sT-T wave abnormality; AL leads Queen Vern will be admitted, evaluated and managed for chest pain Review of Systems Review of Systems: All systems reviewed & are unremarkable except as noted in HPI and below [facility] Past Medical History Medical History (Updated 05/29/24 @ 23:54 by Ki Mancia PA-C) Arthritis Hiatal hernia GERD (gastroesophageal reflux disease) Anxiety Obesity (BMI 30.0-34.9) Asthma Coronary artery disease Diabetes mellitus Hypertension Surgical History Surgical History (Updated 09/14/21 @ 14:37 by Zoe Allen, [employer]) S/P lumpectomy, left breast S/P total hysterectomy and BSO (bilateral salpingo-oophorectomy) H/O cardiac catheterization Family History Family History Father Malignant neoplasm of prostate Social History Social History (Updated 09/14/21 @ 14:38 by Zoe Allen, [employer]) Smoking status: Never smoker Second hand tobacco smoke exposure: No Alcohol intake: never Substance use: never Substance use type: does not use Do You Feel Safe in your Home?: Yes Lack of Transportation: No Lack of Food: Never True Current Housing: I Have Housing Concerned About Future Housing: No Difficulty Paying Gas/Electric Bills: No Difficulty Paying for Meds: No Currently Unemployed: No Education: High School Diploma/GED Difficulty w/ Childcare or Family Care: No Living arrangements: with family Gender identity (if verbalized by the patient): Female Spiritual care concerns: No Meds Home Medications and Allergies Home Medications ?Medication ?Instructions ?Recorded ?Confirmed ?Type albuterol sulfate 90 mcg/actuation 2 puff inhalation Q6H PRN 02/20/20 09/14/21 History aerosol inhaler Shortness Of Breath Or Wheezing alprazolam 0.5 mg tablet 0.5 mg PO Q12H PRN Anxiety 02/20/20 09/14/21 History meclizine 25 mg tablet 25 mg PO Q8H PRN Dizziness Or 02/20/20 09/14/21 History Vertigo pitavastatin calcium 4 mg tablet 4 mg PO DAILY 02/20/20 09/14/21 History (Livalo) acetaminophen 500 mg tablet 500 mg PO Q6H PRN Pain (Scale 09/14/21 09/14/21 History Score 1-3) aspirin 81 mg tablet,delayed 81 mg PO DAILY 09/14/21 09/14/21 History release cholecalciferol (vitamin D3) 125 125 mcg PO DAILY 09/14/21 09/14/21 History mcg (5,000 unit) capsule famotidine 20 mg tablet 20 mg PO DAILY 09/14/21 09/14/21 History levocetirizine 5 mg tablet (Xyzal) 5 mg PO DAILY PRN Allergy Symptoms 09/14/21 09/14/21 History nitroglycerin 0.4 mg sublingual 0.4 mg sublingual Q5M PRN Chest 09/14/21 09/14/21 History tablet Pain metoprolol tartrate 25 mg tablet 25 mg PO Q8HR 30 days #90 tabs 09/15/21 Rx isosorbide mononitrate 30 mg 30 mg PO DAILY 05/30/24 05/30/24 History tablet,extended release 24 hr losartan 50 mg-hydrochlorothiazide 1 tablet PO DAILY 05/30/24 05/30/24 History 12.5 mg tablet nystatin 100,000 unit/gram topical 1 applic topical BID 05/30/24 05/30/24 History cream Allergies Allergy/AdvReac Type Severity Reaction Status Date / Time Penicillins Allergy Unknown Rash Verified 05/29/24 17:53 Vital Signs Vital Signs - 24 hr 05/29/24 18:17 05/29/24 21:32 05/29/24 22:37 Temperature 97.4 F L Pulse Rate 88 78 Respiratory Rate 16 18 Blood Pressure 189/81 H 180/80 H Pulse Oximetry 100 99 99 Oxygen Delivery Room Air 05/29/24 23:04 05/29/24 23:56 Temperature Pulse Rate 73 78 Respiratory Rate 19 19 Blood Pressure 172/64 H 154/62 H Pulse Oximetry 99 100 Oxygen Delivery Exam Const: General: comfortable HENMT: Face/Nose/Sinus: Normal nares present Mouth: Yes moist mucous membranes Eyes: General: appearance normal, both eyes and all related structures Sclera: sclerae normal Neck: Neck: supple Resp: Effort & Inspection: normal respiratory effort Auscultation: clear to auscultation bilaterally Cardio: Rate: regular rate GI: Auscultation: normal bowel sounds : General: Yes bladder normal to palpation Skin: General skin exam: normal color Neuro: General: gait normal Speech: normal speech Motor exam (neuro): 5/5 motor strength present throughout, Normal motor muscle tone present throughout and Abnormal motor strength present Extrem: General: pedal edema bilaterally Psych: Mental Status: mental status grossly normal Affect: normal affect and Anxious affect present H&P: Results Labs Labs: Short CBC 05/29/24 Range/Units 18:29 WBC 6.8 (4.5-10.0) K/mm3 Hgb 12.8 (12.0-15.0) g/dL Hct 37.8 (37.0-47.0) % Plt Count 167 (150-375) k/mm3 BMP 05/29/24 18:29 Sodium 139 Potassium 4.3 Chloride 101 Carbon Dioxide 30 BUN 20 H Creatinine 1.07 H Glucose 145 H Calcium 10.2 Cardiac Enzymes 05/29/24 05/29/24 05/30/24 Range/Units 18:29 21:34 00:31 Troponin I < 0.012 < 0.012 < 0.012 (0.000-0.034) ng/mL Liver Function 05/29/24 Range/Units 18:29 Total Bilirubin 1.1 (0.2-1.3) mg/dL AST 25 (14-36) U/L ALT 19 (6-35) U/L Alkaline Phosphatase 55 (38-126) U/L Albumin 4.2 (3.5-5.1) g/dL Assessment and Plan Assessment and plan (1) Chest pain: Qualifiers: Chest pain type: unspecified Qualified Code(s): R07.9 - Chest pain, unspecified Code(s): R07.9 - Chest pain, unspecified Status: Acute (2) Unstable angina: Code(s): I20.0 - Unstable angina Status: Acute Plan Acute and principal conditions 1. Chest pain 2. Unstable Angina. 3. Elevated BNP; fluid overload Rx: A. Trend troponin, ECG; Pipe Installer input B. NTG, ASA C. IV Furosemide D. ECHO Chronic and stable conditions 1. Obesity, BMI 33 2. CAD. 3. Dyslipidemia. 4. Vertigo. 5. GERD. Miscellaneous care. 1. Code status. Full 2. Nutrition. Heart healthy 3. VTE prophylaxis. SCDs; [facility] Quality VTE Prophylaxis VTE prophylaxis: mechanical ordered and pharmacologic ordered Hospitalist [facility] Advance Care Plan I have confirmed that the patient's Advanced Care Plan is present, code status is documented, or surrogate decision maker is listed in patient medical record.: Yes Medication Reconciliation I have utilized all available resources to obtain, update and review the patients current medications (includes all prescriptions, OTC, herbals, cannabis, and nutritional supplements).: Yes The patient is not eligible for med reconciliation; the patient is in a emergent medical situation where delaying treatment would jeopardize the patients health.: Yes
--- NOTE | 2024-05-30 01:52 | ADMGEN ---
This patient, Queen Jack Vickers, was admitted to IMU Room 213-01. Patient/family oriented to hospital policies and general routines including ID bracelet, bed and alarms, visiting hours, pain management, procedures, bathroom and other care routines, personal items, smoking policy, room service/diet, and visiting hours. Information on how to activate the Rapid Response Team has been discussed. Patient/Family are encouraged to report perceived risks to care and to ask questions if they do not understand what they are told or what they should do.
[2024-05-30] MEDS: ALPRAZolam (*CRX) 0.5 MG TABLET PO ×2 (04:20→21:13)
[2024-05-30] MEDS: METOPROLOL TARTRATE 25 MG TABLET PO ×3 (04:21→21:13)
[2024-05-30 04:37] LABS: Basophils Percent Auto 0.2 % (0.2-1.2); Eosinophils Absolute Auto 0.2 K/mm3 (0-0.3); Eosinophils Percent Auto 1.9 % (0-4.4); Hematocrit 34.2 % (37.0-47.0); Hemoglobin 11.5 g/dL (12.0-15.0); Immature Granulocyte Absolute 0.03 K/mm3 (0.00-0.031); Immature Granulocyte Percent A 0.4 % (0-0.5); Lymphocytes Absolute Auto 2.95 K/mm3 (0.9-3.2); Lymphocytes Percent Auto 35.8 % (18.3-44.2); Mean Corpuscular HGB Conc 33.6 g/dl (32-36); Mean Corpuscular Hemoglobin 31.4 pg (26-34); Mean Corpuscular Volume 93.4 fl (80-100); Mean Platelet Volume 10.2 fl (7.4-10.4); Monocytes Absolute Auto 0.6 K/mm3 (0.1-0.6); Monocytes Percent Auto 6.8 % (2.6-8.5); Neutrophils Absolute Auto 4.5 K/mm3 (1.3-6.7); Neutrophils Percent Auto 54.9 % (45.5-73.1); Platelet Count Result 145 k/mm3 (150-375); Red Blood Count 3.66 M/mm3 (4.2-5.4); White Blood Count 8.2 K/mm3 (4.5-10.0)
[2024-05-30 04:51] LABS: Alanine Aminotransferase 17 U/L (6-35); Albumin Level 3.5 g/dL (3.5-5.1); Alkaline Phosphatase 58 U/L (38-126); Anion Gap 10 mmol/L (4-12); Aspartate Amino Transferase 18 U/L (14-36); Bilirubin,Total 1.1 mg/dL (0.2-1.3); Blood Urea Nitrogen 16 mg/dL (7-17); Calcium 9.8 mg/dL (8.4-10.2); Carbon Dioxide 27 mmol/L (22-30); Chloride 103 mmol/L (98-107); Estimated CRCL calculation 33 ml/min; Estimated Glomerular Filt Rate 45; Glucose 123 mg/dL (65-110); Potassium 4.2 mmol/L (3.4-5.0); Sodium 140 mmol/L (137-145)
[2024-05-30] MEDS: HEPARIN SODIUM 5,000 UNITS/ML VIAL 5000 UNITS SUB-Q ×2 (09:30→21:13)
[2024-05-30] MEDS: FUROSEMIDE INJ 40 MG/4 ML VIAL 20 MG IV PUSH (09:30)
[2024-05-30] MEDS: ASPIRIN 81 MG ENTERIC TABLET PO (09:30)
[2024-05-30] MEDS: FAMOTIDINE 20 MG TABLET PO ×2 (09:30→21:13)
[2024-05-30] MEDS: ISOSORBIDE MONONITRATE 30 MG TAB.ER.24H PO (09:30)
--- NOTE | 2024-05-30 10:14 | PM.CNCAR ---
Assessment and Plan Assessment and plan (1) Chest pain: Qualifiers: Chest pain type: unspecified Qualified Code(s): R07.9 - Chest pain, unspecified Code(s): R07.9 - Chest pain, unspecified Status: Acute Assessment and Plan: Atypical chest pain that seems to be a combination of musculoskeletal and symptoms GERD. She has been ruled out for acute coronary syndrome with negative serial troponins. At this point, do anticipate repeating an angiogram as her symptoms are not consistent with angina and she had a coronary angiogram in 2021 that showed branch vessel disease in a small diagonal artery but no other significant CAD. EKG does not have an ischemic ST or T-wave abnormalities. Echocardiogram has been ordered and will be reviewed. (2) Essential hypertension: Code(s): I10 - Essential (primary) hypertension Status: Chronic Assessment and Plan: At goal. Continue current medical regimen without change. (3) Hyperlipidemia associated with type 2 diabetes mellitus: Code(s): E11.69 - Type 2 diabetes mellitus with other specified complication; E78.5 - Hyperlipidemia, unspecified Status: Acute Assessment and Plan: Unclear why she is not on a statin. Would recommend high-intensity statin. (4) Coronary artery disease: Qualifiers: Associated angina: with unspecified form of angina Coronary Disease-Associated Artery/Lesion type: [place] artery [place] vs. transplanted heart: [place] heart Qualified Code(s): I25.119 - Atherosclerotic heart disease of [place] coronary artery with unspecified angina pectoris Code(s): I25.10 - Atherosclerotic heart disease of [place] coronary artery without angina pectoris Status: Chronic History of Present Illness History of Present Illness Consult date/time: 05/30/24 10:14 Requesting physician: Rusty Baeza MD Consult reason: chest pain Reason For Visit: Chest pain rule out Narrative: Queen Rancho is an 89 year old female who presents to the hospital with chest pain. Cardiology is consulted for evaluation of her chest pain. This is a patient who follows with Dr. Veras in our office for coronary artery disease. She had a coronary angiogram in 2021 which showed mild nonobstructive disease of the epicardial vessels. 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 She does have a high-grade ostial and proximal small 2nd diagonal stenosis with 75-80% disease. The artery less than 2 mm in size with 60-70% stenosis in a branch off the 2nd diagonal branch. She has had two episodes of chest pain in the last week. She reports developing left-sided chest pain when she was sitting in a chair at home. She felt like she had heartburn, so she took some Rolaids which improved the discomfort to some degree. However, since the pain did not completely resolve she took a nitroglycerin which did resolve the pain. On Monday this week she states that she was reaching up to grab something out of a cabinet with her left arm and developed upper left-sided chest discomfort that wrapped around to her back and was very sharp. She denies any shortness of breath, palpitations, syncope, presyncope. She denies any chest pain currently and does not have any other active complaints. Review of Systems Review of Systems: All systems reviewed & are unremarkable except as noted in HPI and below PMF[facility] Past Medical History Medical History Arthritis Hiatal hernia GERD (gastroesophageal reflux disease) Anxiety Obesity (BMI 30.0-34.9) Asthma Coronary artery disease Diabetes mellitus Hypertension Surgical History Surgical History S/P lumpectomy, left breast S/P total hysterectomy and BSO (bilateral salpingo-oophorectomy) H/O cardiac catheterization Family History Family History Father Malignant neoplasm of prostate Social History Social History Smoking status: Never smoker Second hand tobacco smoke exposure: No Alcohol intake: never Substance use: never Substance use type: does not use Do You Feel Safe in your Home?: Yes Lack of Transportation: No Lack of Food: Never True Current Housing: I Have Housing Concerned About Future Housing: No Difficulty Paying Gas/Electric Bills: No Difficulty Paying for Meds: No Currently Unemployed: No Education: High School Diploma/GED Difficulty w/ Childcare or Family Care: No Living arrangements: with family Gender identity (if verbalized by the patient): Female Spiritual care concerns: No Meds Home Medications and Allergies Home Medications ?Medication ?Instructions ?Recorded ?Confirmed ?Type albuterol sulfate 90 mcg/actuation 2 puff inhalation Q4-6H PRN 02/20/20 05/30/24 History aerosol inhaler Shortness Of Breath Or Wheezing alprazolam 0.5 mg tablet 0.5 mg PO Q12H Anxiety 02/20/20 05/30/24 History meclizine 25 mg tablet 25 mg PO Q8H PRN Dizziness Or 02/20/20 05/30/24 History Vertigo pitavastatin calcium 4 mg tablet 4 mg PO DAILY 02/20/20 05/30/24 History (Livalo) acetaminophen 500 mg tablet 500 mg PO Q6H PRN Pain (Scale 09/14/21 05/30/24 History Score 1-3) aspirin 81 mg tablet,delayed 81 mg PO DAILY 09/14/21 05/30/24 History release cholecalciferol (vitamin D3) 125 125 mcg PO DAILY 09/14/21 05/30/24 History mcg (5,000 unit) capsule famotidine 20 mg tablet 20 mg PO Q12H 09/14/21 05/30/24 History levocetirizine 5 mg tablet (Xyzal) 5 mg PO DAILY PRN Allergy Symptoms 09/14/21 05/30/24 History nitroglycerin 0.4 mg sublingual 0.4 mg sublingual Q5M PRN Chest 09/14/21 05/30/24 History tablet Pain metoprolol tartrate 25 mg tablet 25 mg PO Q8HR 30 days #90 tabs 09/15/21 05/30/24 Rx isosorbide mononitrate 30 mg 30 mg PO DAILY 05/30/24 05/30/24 History tablet,extended release 24 hr losartan 50 mg-hydrochlorothiazide 1 tablet PO DAILY 05/30/24 05/30/24 History 12.5 mg tablet nystatin 100,000 unit/gram topical 1 applic topical BID 05/30/24 05/30/24 History cream Allergies Allergy/AdvReac Type Severity Reaction Status Date / Time Penicillins Allergy Unknown Rash Verified 05/29/24 17:53 Vital Signs Vital Signs - 24 hr 05/29/24 18:17 05/29/24 21:32 05/29/24 22:37 Temperature 36.3 C L Pulse Rate 88 78 Respiratory Rate 16 18 Blood Pressure 189/81 H 180/80 H Pulse Oximetry 100 99 99 Oxygen Delivery Room Air 05/29/24 23:04 05/29/24 23:05 05/29/24 23:37 Temperature Pulse Rate 73 72 81 Respiratory Rate 19 19 20 Blood Pressure 172/64 H 172/64 H 196/73 H Pulse Oximetry 99 Oxygen Delivery 05/29/24 23:46 05/29/24 23:56 05/30/24 02:00 Temperature Pulse Rate 89 78 72 Respiratory Rate 19 19 Blood Pressure 154/62 H 154/62 H Pulse Oximetry 100 100 Oxygen Delivery 05/30/24 02:08 05/30/24 04:00 05/30/24 04:21 Temperature 36.8 C Pulse Rate 69 69 78 Respiratory Rate 19 Blood Pressure 154/58 H Pulse Oximetry 95 Oxygen Delivery 05/30/24 04:36 05/30/24 06:00 05/30/24 08:00 Temperature 37.1 C 36.7 C Pulse Rate 71 68 63 Respiratory Rate 19 20 Blood Pressure 135/53 L 133/53 L Pulse Oximetry 97 94 Oxygen Delivery Exam Const: General: comfortable, no acute distress, alert and awake Orientation/consciousness: patient oriented x3 HENMT: Head: normal to inspection Eyes: General: appearance normal, both eyes and all related structures Pupils: Equal, round and reactive pupils present Neck: Neck: normal visual inspection, supple and no JVD Carotids: normal carotid upstroke Chest: Other: Reproducible left upper chest wall pain to palpation Resp: Effort & Inspection: normal respiratory effort Auscultation: clear to auscultation bilaterally Cardio: Rate: regular rate Rhythm: regular rhythm Heart sounds: S1 normal heart sound present, S2 normal heart sound present and no murmurs GI: Auscultation: normal bowel sounds Skin: General skin exam: normal color Neuro: General: patient oriented x3 Cranial nerves: Yes Equal, round and reactive pupils present Extrem: General: normal to inspection Psych: Appearance: grossly normal Mental Status: mental status grossly normal Results Labs and Meds 05/30/24 04:25 05/30/24 04:25 Lab results: Cardiac Enzymes 05/29/24 05/29/24 05/30/24 Range/Units 18:29 21:34 00:31 AST 25 (14-36) U/L Troponin I < 0.012 < 0.012 < 0.012 (0.000-0.034) ng/mL 05/30/24 Range/Units 04:25 AST 18 (14-36) U/L Troponin I (0.000-0.034) ng/mL Coagulation 05/29/24 Range/Units 18:29 PT 14.2 (11.1-14.7) Seconds APTT 34.0 (22.3-36.8) Seconds CBC 05/29/24 05/30/24 Range/Units 18:29 04:25 WBC 6.8 8.2 (4.5-10.0) K/mm3 RBC 4.04 L 3.66 L (4.2-5.4) M/mm3 Hgb 12.8 11.5 L (12.0-15.0) g/dL Hct 37.8 34.2 L (37.0-47.0) % Plt Count 167 145 L (150-375) k/mm3 Lymph # (Auto) 1.90 2.95 (0.9-3.2) K/mm3 [place] # (Auto) 0.4 0.6 (0.1-0.6) K/mm3 Eos # (Auto) 0.1 0.2 (0-0.3) K/mm3 Baso # (Auto) 0.0 0.0 (0.0-0.1) K/mm3 Comprehensive Metabolic Panel 05/29/24 05/30/24 Range/Units 18:29 04:25 Sodium 139 140 (137-145) mmol/L Potassium 4.3 4.2 (3.4-5.0) mmol/L Chloride 101 103 (98-107) mmol/L Carbon Dioxide 30 27 (22-30) mmol/L BUN 20 H 16 (7-17) mg/dL Creatinine 1.07 H 1.14 H (0.7-1.0) mg/dL Glucose 145 H 123 H (65-110) mg/dL Calcium 10.2 9.8 (8.4-10.2) mg/dL AST 25 18 (14-36) U/L ALT 19 17 (6-35) U/L Alkaline Phosphatase 55 58 (38-126) U/L Total Protein 7.0 6.0 L (6.3-8.2) g/dL Albumin 4.2 3.5 (3.5-5.1) g/dL Intake and Output 05/29/24 05/30/24 05/30/24 23:59 07:59 15:59 Other: Intake, Other Source NPO # Unmeasured Voids 1 Patient Weight 05/30/24 23:59 Weight 90.3 kg
--- NOTE | 2024-05-30 11:10 | PM.IMPN ---
Progress Note: A&P Assessment and Plan (1) Chest pain: Qualifiers: Chest pain type: unspecified Qualified Code(s): R07.9 - Chest pain, unspecified Code(s): R07.9 - Chest pain, unspecified Status: Acute (2) Unstable angina: Code(s): I20.0 - Unstable angina Status: Acute Plan Non ST elevation [place] -reviewed home meds, not on anticoagulation -continue home med aspirin 81 mg -Cardiology consulted -Trend Troponin -continue heparin drip and give sublingual nitro if needed -Echocardiogram pending -Reviewed EKG and CXR -currently she is on heparin drip -continue furosemide 20 mg IV q.d. -continue home med Imdur 30 mg p.o. q.d. and metoprolol tartrate 25 mg p.o. q. 8 hours Subjective Date/time seen: 05/30/24 11:10 Interval history: Patient is admitted in the setting of chest pain. Pending echocardiogram. Patient reports that she lives with her son at his home. Patient is independent for ADL. Denies any new using nasal oxygen at home. Denies any CVA, stent or CABG. For past 1 week he patient has the left chest pain radiating to the left arm associated with diaphoresis and shortness of breath. Patient also has a history of acid reflux. Review of Systems Review of Systems: All systems reviewed & are unremarkable except as noted in HPI and below Exam Const: General: comfortable HENMT: Face/Nose/Sinus: Normal nares present Mouth: Yes moist mucous membranes Eyes: General: appearance normal, both eyes and all related structures Sclera: sclerae normal Neck: Neck: supple Resp: Effort & Inspection: normal respiratory effort Auscultation: clear to auscultation bilaterally Cardio: Rate: regular rate GI: Auscultation: normal bowel sounds : General: Yes bladder normal to palpation Bimanual exam- vagina & uterus: bladder normal to palpation Skin: General skin exam: normal color Neuro: General: gait normal Speech: normal speech Motor exam (neuro): 5/5 motor strength present throughout, Normal motor muscle tone present throughout and Abnormal motor strength present Extrem: General: pedal edema bilaterally Psych: Mental Status: mental status grossly normal Affect: normal affect and Anxious affect present Objective Data Vital Signs Vital Signs: Vital Signs - 24 hr 05/29/24 18:17 05/29/24 21:32 05/29/24 22:37 Temperature 97.4 F L Pulse Rate 88 78 Respiratory Rate 16 18 Blood Pressure 189/81 H 180/80 H Pulse Oximetry 100 99 99 Oxygen Delivery Room Air 05/29/24 23:04 05/29/24 23:05 05/29/24 23:37 Temperature Pulse Rate 73 72 81 Respiratory Rate 19 19 20 Blood Pressure 172/64 H 172/64 H 196/73 H Pulse Oximetry 99 Oxygen Delivery 05/29/24 23:46 05/29/24 23:56 05/30/24 02:00 Temperature Pulse Rate 89 78 72 Respiratory Rate 19 19 Blood Pressure 154/62 H 154/62 H Pulse Oximetry 100 100 Oxygen Delivery 05/30/24 02:08 05/30/24 04:00 05/30/24 04:21 Temperature 98.3 F Pulse Rate 69 69 78 Respiratory Rate 19 Blood Pressure 154/58 H Pulse Oximetry 95 Oxygen Delivery 05/30/24 04:36 05/30/24 06:00 05/30/24 08:00 Temperature 98.7 F 98.0 F Pulse Rate 71 68 63 Respiratory Rate 19 20 Blood Pressure 135/53 L 133/53 L Pulse Oximetry 97 94 Oxygen Delivery Intake/Output Intake/Output: Intake & Output 05/27/24 05/28/24 05/29/24 05/30/24 23:59 23:59 23:59 23:59 Output Total 400 Balance -400 Meds/Results Medications: Active Medications Generic Name Dose Route Start Last Admin Trade Name Freq PRN Reason Stop Dose Admin Acetaminophen 650 mg 05/30/24 01:03 Acetaminophen 325 Mg Tablet PO Q4H PRN Mild Pain (1-3) or Fever Albuterol/Ipratropium 3 ml 05/30/24 01:03 Ipratropium 0.5 Mg/Albuterol Sulfate 2.5 Mg Ampul.Neb 3 Ml INHALATION Q4HRT PRN shortness of breath/Wheezing Alprazolam 0.5 mg 05/30/24 09:00 05/30/24 04:20 Alprazolam (*Crx) 0.5 Mg Tablet PO 0.5 mg Q12HR YESI Administration Aspirin 81 mg 05/30/24 09:00 05/30/24 09:30 Aspirin 81 Mg Enteric Tablet PO 81 mg DAILY YESI Administration Famotidine 20 mg 05/30/24 09:00 05/30/24 09:30 Famotidine 20 Mg Tablet PO 20 mg Q12HR YESI Administration Furosemide 20 mg 05/30/24 09:00 05/30/24 09:30 Furosemide Inj 40 Mg/4 Ml Vial IV PUSH 20 mg DAILY YESI Administration Guaifenesin/Dextromethorphan 10 ml 05/30/24 01:03 Guaifenesin/Dextromethorphan 10 Ml Udc PO Q4H PRN Cough Heparin Sodium (Porcine) 5,000 units 05/30/24 09:00 05/30/24 09:30 Heparin Sodium 5,000 Units/Ml Vial SUB-Q 5,000 units Q12HR [facility] Administration Hydromorphone HCl 0.5 mg 05/29/24 23:54 Hydromorphone Hcl Inj (*Crx) 2 Mg/Ml Vial IV PUSH Q4H PRN Pain Rated 7-10 Isosorbide Mononitrate 30 mg 05/30/24 09:00 05/30/24 09:30 Isosorbide Mononitrate 30 Mg Tab.Er.24h PO 30 mg DAILY YESI Administration Loratadine 10 mg 05/30/24 04:03 Loratadine 10 Mg Tablet PO DAILY PRN Allergy Symptoms Meclizine HCl 25 mg 05/30/24 04:00 Meclizine Hcl 25 Mg Tablet PO Q8H PRN Dizziness Or Vertigo Melatonin 5 mg 05/30/24 01:03 Melatonin 5 Mg Tablet PO HS PRN Insomnia Metoprolol Tartrate 25 mg 05/30/24 06:00 05/30/24 04:21 Metoprolol Tartrate 25 Mg Tablet PO 25 mg Q8HR YESI Administration Miscellaneous Information 0 each 05/30/24 00:01 Pitavastatin Nonform Can Pt Bring From Home?? XX 06/29/24 00:00 CLARIFY YESI Nitroglycerin 0.4 mg 05/30/24 04:00 Nitroglycerin Sl 0.4 Mg Tablet SUBLINGUAL Q5M PRN Chest Pain Non-Formulary Medication 4 mg 05/30/24 09:00 Pitavastatin Calcium [Livalo] PO 06/29/24 08:59 DAILY [facility] Ondansetron HCl 4 mg 05/29/24 23:50 Ondansetron Inj 4 Mg/2 Ml Vial IV PUSH Q4H PRN Nausea Perflutren Lipid Microsphere 0 ml 05/30/24 03:45 Perflutren Lipid Microspheres 1.5 Ml Vial Diluted To 10 Ml Total Volume IV PUSH 06/02/24 03:45 ONCE PRN adequate visualization Protocol Polyethylene Glycol 17 gm 05/30/24 01:03 Polyethylene Glycol 3350 17 Gm Powd.Pack PO QAM PRN Constipation Prochlorperazine Edisylate 10 mg 05/30/24 01:03 Prochlorperazine Edisylate 10 Mg/2 Ml Vial IV PUSH Q6H PRN Nausea And Vomiting Radiology Results: ITS Impressions Chest X-Ray 05/29/24 18:33 IMPRESSION: No acute cardiopulmonary process. Chest CTA 05/29/24 23:30 IMPRESSION: No CT evidence of acute pulmonary embolus. No acute process detected in the chest. Labs Labs: Laboratory Results - last 24 hr 05/29/24 05/29/24 05/30/24 18:29 21:34 00:31 WBC 6.8 RBC 4.04 L Hgb 12.8 Hct 37.8 MCV 93.6 MCH 31.7 MCHC 33.9 RDW 12.0 Plt Count 167 MPV 11.0 H Immature Gran % (Auto) 0.3 Neut % (Auto) 64.1 Lymph % (Auto) 27.8 [place] % (Auto) 6.1 Eos % (Auto) 1.6 Baso % (Auto) 0.1 L Lymph # (Auto) 1.90 [place] # (Auto) 0.4 Eos # (Auto) 0.1 Baso # (Auto) 0.0 Abs Immat Gran (auto) 0.02 Absolute Neuts (auto) 4.4 Absolute Nucleated RBC 0.000 Nucleated RBC % 0.0 PT 14.2 INR 1.1 APTT 34.0 Sodium 139 Potassium 4.3 Chloride 101 Carbon Dioxide 30 Anion Gap 8 BUN 20 H Creatinine 1.07 H Estim Creat Clear Calc 35 Estimated GFR 48 L Glucose 145 H Calcium 10.2 Total Bilirubin 1.1 AST 25 ALT 19 Alkaline Phosphatase 55 Troponin I < 0.012 < 0.012 < 0.012 NT-Pro-B Natriuret Pep 414 H Total Protein 7.0 Albumin 4.2 Lipase 114 Influenza A (RT-PCR) Negative Influenza B (RT-PCR) Negative RSV (RT-PCR) Negative SARS-CoV-2 RNA (RT-PCR) Negative 05/30/24 04:25 WBC 8.2 RBC 3.66 L Hgb 11.5 L Hct 34.2 L MCV 93.4 MCH 31.4 MCHC 33.6 RDW 12.0 Plt Count 145 L MPV 10.2 Immature Gran % (Auto) 0.4 Neut % (Auto) 54.9 Lymph % (Auto) 35.8 [place] % (Auto) 6.8 Eos % (Auto) 1.9 Baso % (Auto) 0.2 Lymph # (Auto) 2.95 [place] # (Auto) 0.6 Eos # (Auto) 0.2 Baso # (Auto) 0.0 Abs Immat Gran (auto) 0.03 Absolute Neuts (auto) 4.5 Absolute Nucleated RBC 0.000 Nucleated RBC % 0.0 PT INR APTT Sodium 140 Potassium 4.2 Chloride 103 Carbon Dioxide 27 Anion Gap 10 BUN 16 Creatinine 1.14 H Estim Creat Clear Calc 33 Estimated GFR 45 L Glucose 123 H Calcium 9.8 Total Bilirubin 1.1 AST 18 ALT 17 Alkaline Phosphatase 58 Troponin I NT-Pro-B Natriuret Pep Total Protein 6.0 L Albumin 3.5 Lipase Influenza A (RT-PCR) Influenza B (RT-PCR) RSV (RT-PCR) SARS-CoV-2 RNA (RT-PCR) Quality VTE Prophylaxis VTE prophylaxis: mechanical ordered and pharmacologic ordered Hospitalist MIPS Advance Care Plan I have confirmed that the patient's Advanced Care Plan is present, code status is documented, or surrogate decision maker is listed in patient medical record.: Yes Medication Reconciliation I have utilized all available resources to obtain, update and review the patients current medications (includes all prescriptions, OTC, herbals, cannabis, and nutritional supplements).: Yes
[2024-05-31] VITALS (15 sets, daily range): BP systolic 113–149; BP diastolic 53–67; PULSE 58–95; RESP 18–20; TEMP 36.4–36.8; O2SAT 95–100
[2024-05-31 04:34] LABS: Basophils Percent Auto 0.2 % (0.2-1.2); Eosinophils Absolute Auto 0.2 K/mm3 (0-0.3); Eosinophils Percent Auto 3.3 % (0-4.4); Hematocrit 34.8 % (37.0-47.0); Hemoglobin 11.3 g/dL (12.0-15.0); Immature Granulocyte Absolute 0.01 K/mm3 (0.00-0.031); Immature Granulocyte Percent A 0.2 % (0-0.5); Lymphocytes Absolute Auto 2.71 K/mm3 (0.9-3.2); Lymphocytes Percent Auto 42.2 % (18.3-44.2); Mean Corpuscular HGB Conc 32.5 g/dl (32-36); Mean Corpuscular Hemoglobin 30.9 pg (26-34); Mean Corpuscular Volume 95.1 fl (80-100); Mean Platelet Volume 10.6 fl (7.4-10.4); Monocytes Absolute Auto 0.4 K/mm3 (0.1-0.6); Monocytes Percent Auto 6.9 % (2.6-8.5); Neutrophils Percent Auto 47.2 % (45.5-73.1); Platelet Count Result 148 k/mm3 (150-375); Red Blood Count 3.66 M/mm3 (4.2-5.4); Red Cell Distribution Width 12.2 % (11.5-14.5); White Blood Count 6.4 K/mm3 (4.5-10.0)
[2024-05-31 04:47] LABS: Alanine Aminotransferase 16 U/L (6-35); Albumin Level 3.6 g/dL (3.5-5.1); Alkaline Phosphatase 56 U/L (38-126); Anion Gap 8 mmol/L (4-12); Aspartate Amino Transferase 20 U/L (14-36); Bilirubin,Total 1.5 mg/dL (0.2-1.3); Blood Urea Nitrogen 19 mg/dL (7-17); Calcium 9.3 mg/dL (8.4-10.2); Carbon Dioxide 29 mmol/L (22-30); Chloride 103 mmol/L (98-107); Estimated CRCL calculation 35 ml/min; Estimated Glomerular Filt Rate 48; Glucose 117 mg/dL (65-110); Potassium 3.7 mmol/L (3.4-5.0); Sodium 140 mmol/L (137-145)
[2024-05-31] MEDS: METOPROLOL TARTRATE 25 MG TABLET PO ×2 (06:46→14:29)
--- NOTE | 2024-05-31 06:59 | PM.DS ---
DS: Admitting Diagnosis Discharge Date 05/31/2024 Admitting Diagnosis Chest Pain DS: Discharge Diagnosis Discharge Diagnosis (1) Chest pain: Qualifiers: Chest pain type: unspecified Qualified Code(s): R07.9 - Chest pain, unspecified Code(s): R07.9 - Chest pain, unspecified Status: Acute (2) Unstable angina: Code(s): I20.0 - Unstable angina Status: Acute Plan Non ST elevation [place] Resolved. Follow-up with cardiology as an outpatient. -reviewed home meds, not on anticoagulation -continue home med aspirin 81 mg -Cardiology consulted -Trend Troponin -continue heparin drip and give sublingual nitro if needed -Echocardiogram pending -Reviewed EKG and CXR -currently she is on heparin drip -continue furosemide 20 mg IV q.d. -continue home med Imdur 30 mg p.o. q.d. and metoprolol tartrate 25 mg p.o. q. 8 hours DS: Summary Hospital Course Hospital Course: Queen Rancho is an 89 year old female who presents to the hospital with chest pain. This is a patient who follows with Dr. Veras in our office for coronary artery disease. As per cardiology ,she had a coronary angiogram in 2021 which showed mild nonobstructive disease of the epicardial vessels. 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 She does have a high-grade ostial and proximal small 2nd diagonal stenosis with 75-80% disease. The artery less than 2 mm in size with 60-70% stenosis in a branch off the 2nd diagonal branch. She has had two episodes of chest pain in the last week. She reports developing left-sided chest pain when she was sitting in a chair at home. She felt like she had heartburn, so she took some Rolaids which improved the discomfort to some degree. However, since the pain did not completely resolve she took a nitroglycerin which did resolve the pain. On Monday this week she states that she was reaching up to grab something out of a cabinet with her left arm and developed upper left-sided chest discomfort that wrapped around to her back and was very sharp. She denies any shortness of breath, palpitations, syncope, presyncope. She denies any chest pain currently and does not have any other active complaints. Cardiology was consulted in the setting of atypical chest pain, and reported atypical chest pain that seems to be a combination of musculoskeletal and symptoms GERD. She has been ruled out for acute coronary syndrome with negative serial troponins. At this point, do anticipate repeating an angiogram as her symptoms are not consistent with angina and she had a coronary angiogram in 2021 that showed branch vessel disease in a small diagonal artery but no other significant CAD.EKG does not have an ischemic ST or T-wave abnormalities . Currently patient denies any chest pain and advised to follow-up with the Cardiology for further evaluation as an outpatient. Reviewed echocardiogram. Left ventricular systolic function is hyperdynamic, estimated at >70%. Please refer to the full report. Status at Discharge Cognitive/behavioral status at discharge: Stable Time Spent with Patient Time attestation: Total time spent providing and/or coordinating discharge services: 45 minute Exam Const: General: comfortable HENMT: Face/Nose/Sinus: Normal nares present Mouth: Yes moist mucous membranes Eyes: General: appearance normal, both eyes and all related structures Sclera: sclerae normal Neck: Neck: supple Resp: Effort & Inspection: normal respiratory effort Auscultation: clear to auscultation bilaterally Cardio: Rate: regular rate GI: Auscultation: normal bowel sounds : General: Yes bladder normal to palpation Bimanual exam- vagina & uterus: bladder normal to palpation Skin: General skin exam: normal color Neuro: General: gait normal Speech: normal speech Motor exam (neuro): 5/5 motor strength present throughout, Normal motor muscle tone present throughout and Abnormal motor strength present Extrem: General: pedal edema bilaterally Psych: Mental Status: mental status grossly normal Affect: normal affect and Anxious affect present DS: Data Data Completed and Pending Labs on day of discharge: Labs from last 24 hours 05/31/24 04:13 WBC 6.4 RBC 3.66 L Hgb 11.3 L Hct 34.8 L MCV 95.1 MCH 30.9 MCHC 32.5 RDW 12.2 Plt Count 148 L MPV 10.6 H Immature Gran % (Auto) 0.2 Neut % (Auto) 47.2 Lymph % (Auto) 42.2 [place] % (Auto) 6.9 Eos % (Auto) 3.3 Baso % (Auto) 0.2 Lymph # (Auto) 2.71 [place] # (Auto) 0.4 Eos # (Auto) 0.2 Baso # (Auto) 0.0 Abs Immat Gran (auto) 0.01 Absolute Neuts (auto) 3.0 Absolute Nucleated RBC 0.000 Nucleated RBC % 0.0 Sodium 140 Potassium 3.7 Chloride 103 Carbon Dioxide 29 Anion Gap 8 BUN 19 H Creatinine 1.07 H Estim Creat Clear Calc 35 Estimated GFR 48 L Glucose 117 H Calcium 9.3 Total Bilirubin 1.5 H AST 20 ALT 16 Alkaline Phosphatase 56 Total Protein 6.0 L Albumin 3.6 Imaging Radiologist's impression: ITS Impressions Chest X-Ray 05/29/24 18:33 IMPRESSION: No acute cardiopulmonary process. Chest CTA 05/29/24 23:30 IMPRESSION: No CT evidence of acute pulmonary embolus. No acute process detected in the chest. Discharge Plan Discharge Attending physician on discharge: Terrell Ricardo Consulting providers: Froilan Veras Discharging Clinician: Terrell Ricardo Activity: as tolerated Diet: heart healthy Discharge Instructions: Please follow up with Cardiology in a week upon discharge Check blood pressure 1 to 2 times a day. Record and bring into your doctor for review. Call your doctor if your blood pressure is greater than 180/110 or less than 90/45. Walk with cane or other assist device. Take precautions to avoid falls. Rise slowly from a lying or sitting position. Pause before standing or walking. Contact your doctor or call 911 and come to the Emergency Room if you have any type of trauma, lightheadedness with standing or other worrisome symptoms. Avoid NSAIDs (ibuprofen, naproxen, Aleve). Tylenol is safe to take. Follow-up with your primary care provider in 1-2 weeks. Please call for appointment. Follow-up with Cardiology in 2-4 weeks. Please call for an appointment. Thank you for using [facility] for your health care needs. Patient Instructions: Chest Pain (GEN), Low-Sodium Diet (GEN) Patient Language: Yoruba Discharge Medications: Continued aspirin 81 mg Tablet,Delayed Release (Dr/Ec) 81 mg PO DAILY acetaminophen 500 mg Tablet 500 mg PO Q6H PRN (Reason: Pain (Scale Score 1-3)) famotidine 20 mg tablet 20 mg PO Q12H nitroglycerin 0.4 mg tablet, sublingual 0.4 mg sublingual Q5M PRN (Reason: Chest Pain) Rx Instructions: may repeat x3 cholecalciferol (vitamin D3) 125 mcg (5,000 unit) Capsule 125 mcg PO DAILY levocetirizine [Xyzal] 5 mg Tablet 5 mg PO DAILY PRN (Reason: Allergy Symptoms) metoprolol tartrate 25 mg Tablet 25 mg PO Q8HR 30 Days Qty: 90 0RF isosorbide mononitrate 30 mg tablet extended release 24 hr 30 mg PO DAILY losartan-hydrochlorothiazide 50-12.5 mg tablet 1 tablet PO DAILY nystatin 100,000 unit/gram cream 1 applic topical BID alprazolam 0.5 mg tablet 0.5 mg PO Q12H meclizine 25 mg tablet 25 mg PO Q8H PRN (Reason: Dizziness Or Vertigo) albuterol sulfate 90 mcg/actuation HFA aerosol inhaler 2 puff INHALATION Q4-6H PRN (Reason: Shortness Of Breath Or Wheezing) pitavastatin calcium [Livalo] 4 mg tablet 4 mg PO DAILY Date of admission: 05/30/24 10:07 Primary Care Provider: Demetri Baker Admitting Provider: Rusty Baeza Attending physician on admission: Rusty Baeza Condition: Stable
[2024-05-31] MEDS: ASPIRIN 81 MG ENTERIC TABLET PO (09:08)
[2024-05-31] MEDS: HEPARIN SODIUM 5,000 UNITS/ML VIAL 5000 UNITS SUB-Q (09:08)
[2024-05-31] MEDS: FUROSEMIDE INJ 40 MG/4 ML VIAL 20 MG IV PUSH (09:08)
[2024-05-31] MEDS: ALPRAZolam (*CRX) 0.5 MG TABLET PO (09:08)
[2024-05-31] MEDS: ISOSORBIDE MONONITRATE 30 MG TAB.ER.24H PO (09:08)
[2024-05-31] MEDS: FAMOTIDINE 20 MG TABLET PO (09:08)
== END 2024-05-31 15:00 | disposition home or self-care (01) | DRG 313 ==
LOC: ANHED 23:54 → ANHIMU 05-30 00:58
PROVIDERS: Emergency Medicine; Physician Assistant; Admitting Provider Internal Medicine; Emergency Provider Physician Assistant; PCP Emergency Medicine; Visit Provider General Practice
DX: R07.89 Other chest pain (principal); K21.9 Gastro-esophageal reflux disease without esophagitis; I25.10 Atherosclerotic heart disease of native coronary artery without angina pectoris; M19.90 Unspecified osteoarthritis, unspecified site; K44.9 Diaphragmatic hernia without obstruction or gangrene; E11.9 Type 2 diabetes mellitus without complications; I10 Essential (primary) hypertension; E78.5 Hyperlipidemia, unspecified; Z86.16 Personal history of COVID-19; Z90.710 Acquired absence of both cervix and uterus; Z90.722 Acquired absence of ovaries, bilateral
CPT/HCPCS: 36415; 71046; 71275; 80053; 83690; 83880; 84484; 85025; 85610; 85730; 87637; 93005; 93306; 96374; 96375; 99285; A9270; G0378; J1644; J1940; Q9967